=== PATIENT | male | born 1945 | race Caucasian/White ===

== ENCOUNTER 2021-05-15 08:35 | Emergency (ER) | payer MEDICARE, OTHER, SELFPAY ==
[2021-05-15 08:40] VITALS: BP 181/100; PULSE 125; RESP 14; TEMP 36.5; O2SAT 94; BMI 38.0
--- NOTE | 2021-05-15 08:45 | ED_ITS ---
Documented by User: TIESHA Roque 05/16/21 08:04 HPI - Male Genitourinary General: Chief complaint: Urogenital-Male Stated complaint: ABDOMINAL PAIN Time Seen by Provider: 05/15/21 08:36 Source: patient and EMS Mode of arrival: EMS Limitations: no limitations History of Present Illness: HPI Narrative: Patient is a 75-year-old male who presents to ED today with a complaint of left lower back pain that began around 4 PM yesterday evening. Patient states since that time he has noticed cloudy and bloody urine. He states he does have a history of kidney stones years and years ago . Patient states this morning he noticed his urine had BB looking things in it that he believes were probably stones. Upon arrival from EMS he tells me he is not having much pain. No N/V. Denies abdominal pain. No fevers. MD Complaint: other (L back pain, hematuria) Onset (ago): day(s) (yesterday evening) Exacerbating factors: urination Associated symptoms: Reports no associated symptoms and hematuria; Deny dysuria, nausea or vomiting Related Data: Sexually active: No Review of Systems Const: Denies: fever(s), chills, body aches, fatigue or malaise Eyes: Denies: change in vision ENMT: Denies: throat pain or odynophagia Card: Denies: chest pain, palpitations, irregular heart rhythm, edema, lightheadedness, syncope or pre-syncope Resp: Denies: dyspnea, productive cough, hemoptysis or chest congestion GI: Denies: abdominal pain, nausea, vomiting or diarrhea : Reports: difficulty urinating and hematuria; Denies: flank pain, dysuria, urinary urgency, genital pain or testicular pain Musc: Reports: back pain (subsided now); Denies: neck pain, extremity pain, extremity swelling, joint pain or joint swelling Skin/Breast: Denies: rash Neuro: Denies: headache(s), numbness in extremities, weakness in extremities, sensory changes or dizziness Physical Exam Const: COMMON NORMALS: no acute distress, patient oriented x3, no limitations and alert NUTRITIONAL APPEARANCE: obese ORIENTATION/CONSCIOUSNESS: Yes awake, Yes oriented to person, Yes oriented to place and Yes oriented to time HENMT: COMMON NORMALS: normocephalic and atraumatic HEAD & SCALP: normo cephalic and atraumatic Resp: COMMON NORMALS: normal respiratory effort EFFORT & INSPECTION: Yes able to speak in complete sentences AUSCULTATION: wheezes OTHER: appears mildly SOB but when asked he tells me he doesn't feel short of breath-some of this could be secondary to body habitus Cardio: COMMON NORMALS: regular rhythm RATE: tachycardic RHYTHM: regular rhythm GI: COMMON NORMALS: Normal to inspection, nondistended, normoactive bowel sounds present, Soft to palpation, non-tender and no masses PALPATION: Yes Soft to palpation Neuro: COMMON NORMALS: patient oriented x3 SENSORIUM/ORIENTATION: Yes alert, Yes oriented to person, Yes oriented to place and Yes oriented to time Skin: NARRATIVE SKIN EXAM: plaque like lesions to lower abdomen; candidal infection under L breast fold Course Consultations: Consultation #1: Dr. 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 He also had a bladder obstruction secondary to clots. Bladder scan showed 450mL but placement of a 22 Serbian catheter yielded no return. This was copiously irrigated and is currently draining well. He is uroseptic with tachycardia and a lactate over 4. He was started on IV fluids and empirical antibiotics. We have no beds currently so patient will be transferred to [facility] in [facility]. Dr. Breen also evaluated patient and spoke to accepting physician at [facility]. H/H stable. Lab Data: Labs: Lab Results 05/15/21 05/15/21 05/15/21 Range/Units 09:02 09:02 09:02 WBC 13.6 H (4.0-10.0) 10^3/ uL RBC 5.40 H (4.1-5.3) 10^6/u L Hgb 15.5 (11.7-16.6) g/dL Hct 48.6 (42.0-52.0) % MCV 90.0 (80-94) fl MCH 28.7 (28.0-34.0) pg MCHC 31.9 (30.0-36.0) g/dL RDW 14.1 (12.1-15.1) % Plt Count 277 (130-400) 10^3/c mm MPV 11.0 H (7.4-10.4) fL Neut % (Auto) 87.2 % Lymph % (Auto) 6.8 % Anderson % (Auto) 5.1 % Eos % (Auto) 0.1 % Baso % (Auto) 0.5 % Neut # (Auto) 11.87 H (1.8-7.7) 10^3/u L Lymph # (Auto) 0.9 (0.8-4.8) 10^3/u L Anderson # (Auto) 0.7 (0.2-0.9) 10^3/u L Eos # (Auto) 0.0 (0.0-0.8) 10^3/u L Baso # (Auto) 0.1 (0.0-0.1) 10^3/u L Nucleated RBC % (a uto) 0 % Nucleated RBCs # 0.0 /100WBC Sodium 135 L (136-145) mmol/L Potassium 4.9 (3.5-5.1) mmol/L Chloride 97 L (98-107) mmol/L Carbon Dioxide 23 (22-29) mmol/L Anion Gap 19.9 H (5-19) BUN 14 (8-23) mg/dL Creatinine 1.4 H (0.7-1.2) mg/dL GFR Calculation Not Reportable Glucose 231 H (65-115) mg/dL Calculated Osmolal ity 288 (285-295) mOsm/k g Lactic Acid 4.3 H* (0.5-2.2) mmol/L Lactic Acid (Sepsi s) (0.5-2.2) mmol/L Calcium 10.0 (8.5-10.5) mg/dL Total Bilirubin 0.6 (0.15-1.2) mg/dL AST 18 (0-40) U/L ALT 15 (0-41) U/L Alkaline Phosphata se 106 (40-130) IU/L Total Protein 7.3 (6.6-8.7) g/dL Albumin 4.3 (3.5-5.2) g/dL Globulin 3.0 (1.3-4.6) g/dL Urine Color (Yellow) Urine Appearance (CLEAR) Urine pH (5-7) Ur Specific Gravit y (1.005-1.030) Urine Protein (Negative) Urine Glucose (UA) (Normal) Urine Ketones (Negative) Urine Blood (Negative) Urine Nitrate (Negative) Urine Bilirubin (Negative) Urine Urobilinogen (Negative) mg/dL Ur Leukocyte Emily ase (Negative) Urine RBC (0-2) /hpf Urine WBC (0-5) /hpf Ur Squamous Epith Cells (0-5) /hpf Amorphous Sediment Urine Bacteria (NONE) /hpf SARS-CoV-2 Ag (Rap id) (Negative) Blood Type Rho(D) Type Antibody Screen 05/15/21 05/15/21 05/15/21 Range/Units 10:05 10:10 12:05 WBC (4.0-10.0) 10^3/ uL RBC (4.1-5.3) 10^6/u L Hgb (11.7-16.6) g/dL Hct (42.0-52.0) % MCV (80-94) fl MCH (28.0-34.0) pg MCHC (30.0-36.0) g/dL RDW (12.1-15.1) % Plt Count (130-400) 10^3/c mm MPV (7.4-10.4) fL Neut % (Auto) % Lymph % (Auto) % Anderson % (Auto) % Eos % (Auto) % Baso % (Auto) % Neut # (Auto) (1.8-7.7) 10^3/u L Lymph # (Auto) (0.8-4.8) 10^3/u L Anderson # (Auto) (0.2-0.9) 10^3/u L Eos # (Auto) (0.0-0.8) 10^3/u L Baso # (Auto) (0.0-0.1) 10^3/u L Nucleated RBC % (a uto) % Nucleated RBCs # /100WBC Sodium (136-145) mmol/L Potassium (3.5-5.1) mmol/L Chloride (98-107) mmol/L Carbon Dioxide (22-29) mmol/L Anion Gap (5-19) BUN (8-23) mg/dL Creatinine (0.7-1.2) mg/dL GFR Calculation Glucose (65-115) mg/dL Calculated Osmolal ity (285-295) mOsm/k g Lactic Acid (0.5-2.2) mmol/L Lactic Acid (Sepsi s) (0.5-2.2) mmol/L Calcium (8.5-10.5) mg/dL Total Bilirubin (0.15-1.2) mg/dL AST (0-40) U/L ALT (0-41) U/L Alkaline Phosphata se (40-130) IU/L Total Protein (6.6-8.7) g/dL Albumin (3.5-5.2) g/dL Globulin (1.3-4.6) g/dL Urine Color Red (Yellow) Urine Appearance Bloody A (CLEAR) Urine pH 6.5 (5-7) Ur Specific Gravit y 1.010 (1.005-1.030) Urine Protein 3+ H (Negative) Urine Glucose (UA) 4+ H (Normal) Urine Ketones 1+ H (Negative) Urine Blood 3+ H (Negative) Urine Nitrate Not tested A (Negative) Urine Bilirubin 1+ H (Negative) Urine Urobilinogen 1 H (Negative) mg/dL Ur Leukocyte Emily ase 1+ H (Negative) Urine RBC Too numerous to c nt H (0-2) /hpf Urine WBC 40-55 H (0-5) /hpf Ur Squamous Epith Cells 5-10 H (0-5) /hpf Amorphous Sediment Not Reportable Urine Bacteria 1+ H (NONE) /hpf SARS-CoV-2 Ag (Rap id) Negative (Negative) Blood Type O Negative Rho(D) Type Negative Antibody Screen Negative 05/15/21 05/15/21 Range/Units 12:12 14:23 WBC 12.9 H (4.0-10.0) 10^3/ uL RBC 4.96 (4.1-5.3) 10^6/u L Hgb 14.7 (11.7-16.6) g/dL Hct 44.1 (42.0-52.0) % MCV 88.9 (80-94) fl MCH 29.6 (28.0-34.0) pg MCHC 33.3 (30.0-36.0) g/dL RDW 14.2 (12.1-15.1) % Plt Count 311 (130-400) 10^3/c mm MPV 10.9 H (7.4-10.4) fL Neut % (Auto) 85.5 % Lymph % (Auto) 7.2 % Anderson % (Auto) 6.5 % Eos % (Auto) 0.1 % Baso % (Auto) 0.4 % Neut # (Auto) 11.01 H (1.8-7.7) 10^3/u L Lymph # (Auto) 0.9 (0.8-4.8) 10^3/u L Anderson # (Auto) 0.8 (0.2-0.9) 10^3/u L Eos # (Auto) 0.0 (0.0-0.8) 10^3/u L Baso # (Auto) 0.1 (0.0-0.1) 10^3/u L Nucleated RBC % (a uto) 0 % Nucleated RBCs # 0.0 /100WBC Sodium (136-145) mmol/L Potassium (3.5-5.1) mmol/L Chloride (98-107) mmol/L Carbon Dioxide (22-29) mmol/L Anion Gap (5-19) BUN (8-23) mg/dL Creatinine (0.7-1.2) mg/dL GFR Calculation Glucose (65-115) mg/dL Calculated Osmolal ity (285-295) mOsm/k g Lactic Acid (0.5-2.2) mmol/L Lactic Acid (Sepsi s) 2.6 H (0.5-2.2) mmol/L Calcium (8.5-10.5) mg/dL Total Bilirubin (0.15-1.2) mg/dL AST (0-40) U/L ALT (0-41) U/L Alkaline Phosphata se (40-130) IU/L Total Protein (6.6-8.7) g/dL Albumin (3.5-5.2) g/dL Globulin (1.3-4.6) g/dL Urine Color (Yellow) Urine Appearance (CLEAR) Urine pH (5-7) Ur Specific Gravit y (1.005-1.030) Urine Protein (Negative) Urine Glucose (UA) (Normal) Urine Ketones (Negative) Urine Blood (Negative) Urine Nitrate (Negative) Urine Bilirubin (Negative) Urine Urobilinogen (Negative) mg/dL Ur Leukocyte Emily ase (Negative) Urine RBC (0-2) /hpf Urine WBC (0-5) /hpf Ur Squamous Epith Cells (0-5) /hpf Amorphous Sediment Urine Bacteria (NONE) /hpf SARS-CoV-2 Ag (Rap id) (Negative) Blood Type Rho(D) Type Antibody Screen Imaging Data: CXR: Radiologist's impression: [address] [id number] ReportSigned Patient: Nadir Sarkar #: [id number]: 1945cct#:[id number]/Sex: 75 / MADM Date: 05/15/21Loc: ERRoom/Bed:Attending Dr: Ordering Provider/Ordering MD: Estefani Hauser Date of Service: 05/15/21 Procedure(s): XR chest 1V portable [id number] Accession Number(s): [id number] Report Number: [id number] PROCEDURE INFORMATION: Exam: XR Chest Exam date and time: 05/15/2021 9:43 AM Age: 75 years old Clinical indication: Shortness of breath; Other: Abdomen pain; Additional info: SOB, tachy TECHNIQUE: Imaging protocol: XR of the chest. Views: 1 view. COMPARISON: CT kidney stone [id number] 05/15/2021 9:19 AM FINDINGS: Lungs: Unremarkable. No consolidation. Pleural spaces: Unremarkable. No pleural effusion. No pneumothorax. Heart/Mediastinum: Unremarkable. No cardiomegaly. Bones/joints: Unremarkable. XR/XR chest 1V portable [id number] IMPRESSION: No acute findings. Dictated By:Pito Burnsed By:Tariq Burns Date/Time:05/15/21 1004DD/ 1003 CT Abd/Pel: Radiologist's impression: [facility] [address] [place] [address] CT Scan Report Signed Patient: Nadir Sarkar Unit #: [id number] : 1945 Age/Sex: 75 / M ADM Date: 05/15/21 Loc: ER Room/Bed: Attending Dr: Ordering Provider/Ordering MD: Estefani Hauser Date of Service: 05/15/21 Procedure(s): CT kidney stone [id number] Accession Number(s): [id number] Report Number: [id number] WS: [id number] CT ABDOMEN PELVIS TECHNIQUE: Noncontrast CT of the abdomen and pelvis with coronal and sagittal reformatted images. CLINICAL INFORMATION: L lower back pain, bloody urine COMPARISON: None. DLP: 1854.[address] scans at [facility] use at least one of these dose optimization techniques: automated exposure control; mA and/or kV adjustment per patient size (includes targeted exams where dose is matched to clinical indication); or iterative reconstruction. FINDINGS: Diffuse increased attenuation consistent with blood products in the renal pelvis with dilated left UPJ. Increased attenuation dependent blood products in the bladder. Left ureter is otherwise decompressed. Large left upper pole renal cyst measuring 6.2 x 6.8 cm with increased attenuation hematoma suspicious for hemorrhagic neoplasm. Also consider spontaneous urothelial hemorrhagic or hemorrhagic TCC. Inflammatory stranding and edema about the left kidney. No hydronephrosis in right kidney. Incidental right renal cyst. Right ureter is decompressed. Lung bases are well aerated. Fatty atrophy of the pancreas. Small esophageal hiatal hernia. Adrenal glands are normal. Normal caliber abdominal aorta. Sigmoid diverticulosis. No evidence of acute diverticulitis. Normal appendix in the right lower quadrant. CT/CT kidney stone [id number] IMPRESSION: 1. Hemorrhagic blood products within the renal pelvis with mild dilatation of the left UPJ. Dependent blood products and hematoma within the bladder. 2. Large left upper pole renal cyst with increased attenuation blood products and hematoma suspicious for cystic neoplasm. Also consider spontaneous urothelial hemorrhage or hemorrhagic TCC. Recommend urology consultation. 3. Inflammatory stranding and edema about the left kidney. 4. Incidental simple right renal cyst. 5. Sigmoid diverticulosis. No evidence of acute diverticulitis. 6. Small esophageal hiatal hernia. Notified TIESHA Roque at 05/15/2021 10:09 AM. Dictated By: Chuy Guzman MD Signed By: Chuy Guzman MD Signed Date/Time: 05/15/21 1010 DD/ 0943 Discharge Plan Discharge Patient Disposition: Xfer Short-Term Hosp Clinical Impression: Renal hemorrhage, left, Bladder outflow obstruction Sepsis Qualifiers: Sepsis acute organ dysfunction status: unspecified Condition: Stable Referrals: Laurent Whitaker MD [Primary Care Provider] - Coding Level of Care Code ED Mastic Floor Layer for Chg Fwd Exam Detailed Documented by User: Yazan Breen MD 05/17/21 20:38 HPI - Male Genitourinary General: Chief complaint: Urogenital-Male Stated complaint: ABDOMINAL PAIN Time Seen by Provider: 05/15/21 08:36 Course Vital Signs: Vital signs: Vital Signs Temperature 97.7 F 05/15/21 08:40 Pulse Rate 117 H 05/15/21 14:40 Respiratory Rate 19 H 05/15/21 14:40 Blood Pressure 147/78 05/15/21 11:00 Pulse Oximetry 94 05/15/21 14:40 MDM - Male MDM Narrative: Medical decision making narrative: Case discussed with TIESHA Roque. I reviewed labs and imaging. Concern for hematuria from renal lesion that may require intervention, no beds available here. Patient to be transferred. Yazan Breen MD Emergency Medicine Lab Data: Labs: Lab Results 05/15/21 05/15/21 05/15/21 Range/Units 09:02 09:02 09:02 WBC 13.6 H (4.0-10.0) 10^3/ uL RBC 5.40 H (4.1-5.3) 10^6/u L Hgb 15.5 (11.7-16.6) g/dL Hct 48.6 (42.0-52.0) % MCV 90.0 (80-94) fl MCH 28.7 (28.0-34.0) pg MCHC 31.9 (30.0-36.0) g/dL RDW 14.1 (12.1-15.1) % Plt Count 277 (130-400) 10^3/c mm MPV 11.0 H (7.4-10.4) fL Neut % (Auto) 87.2 % Lymph % (Auto) 6.8 % Anderson % (Auto) 5.1 % Eos % (Auto) 0.1 % Baso % (Auto) 0.5 % Neut # (Auto) 11.87 H (1.8-7.7) 10^3/u L Lymph # (Auto) 0.9 (0.8-4.8) 10^3/u L Anderson # (Auto) 0.7 (0.2-0.9) 10^3/u L Eos # (Auto) 0.0 (0.0-0.8) 10^3/u L Baso # (Auto) 0.1 (0.0-0.1) 10^3/u L Nucleated RBC % (a uto) 0 % Nucleated RBCs # 0.0 /100WBC Sodium 135 L (136-145) mmol/L Potassium 4.9 (3.5-5.1) mmol/L Chloride 97 L (98-107) mmol/L Carbon Dioxide 23 (22-29) mmol/L Anion Gap 19.9 H (5-19) BUN 14 (8-23) mg/dL Creatinine 1.4 H (0.7-1.2) mg/dL GFR Calculation Not Reportable Glucose 231 H (65-115) mg/dL Calculated Osmolal ity 288 (285-295) mOsm/k g Lactic Acid 4.3 H* (0.5-2.2) mmol/L Lactic Acid (Sepsi s) (0.5-2.2) mmol/L Calcium 10.0 (8.5-10.5) mg/dL Total Bilirubin 0.6 (0.15-1.2) mg/dL AST 18 (0-40) U/L ALT 15 (0-41) U/L Alkaline Phosphata se 106 (40-130) IU/L Total Protein 7.3 (6.6-8.7) g/dL Albumin 4.3 (3.5-5.2) g/dL Globulin 3.0 (1.3-4.6) g/dL Urine Color (Yellow) Urine Appearance (CLEAR) Urine pH (5-7) Ur Specific Gravit y (1.005-1.030) Urine Protein (Negative) Urine Glucose (UA) (Normal) Urine Ketones (Negative) Urine Blood (Negative) Urine Nitrate (Negative) Urine Bilirubin (Negative) Urine Urobilinogen (Negative) mg/dL Ur Leukocyte Emily ase (Negative) Urine RBC (0-2) /hpf Urine WBC (0-5) /hpf Ur Squamous Epith Cells (0-5) /hpf Amorphous Sediment Urine Bacteria (NONE) /hpf SARS-CoV-2 Ag (Rap id) (Negative) Blood Type Rho(D) Type Antibody Screen 05/15/21 05/15/21 05/15/21 Range/Units 10:05 10:10 12:05 WBC (4.0-10.0) 10^3/ uL RBC (4.1-5.3) 10^6/u L Hgb (11.7-16.6) g/dL Hct (42.0-52.0) % MCV (80-94) fl MCH (28.0-34.0) pg MCHC (30.0-36.0) g/dL RDW (12.1-15.1) % Plt Count (130-400) 10^3/c mm MPV (7.4-10.4) fL Neut % (Auto) % Lymph % (Auto) % Anderson % (Auto) % Eos % (Auto) % Baso % (Auto) % Neut # (Auto) (1.8-7.7) 10^3/u L Lymph # (Auto) (0.8-4.8) 10^3/u L Anderson # (Auto) (0.2-0.9) 10^3/u L Eos # (Auto) (0.0-0.8) 10^3/u L Baso # (Auto) (0.0-0.1) 10^3/u L Nucleated RBC % (a uto) % Nucleated RBCs # /100WBC Sodium (136-145) mmol/L Potassium (3.5-5.1) mmol/L Chloride (98-107) mmol/L Carbon Dioxide (22-29) mmol/L Anion Gap (5-19) BUN (8-23) mg/dL Creatinine (0.7-1.2) mg/dL GFR Calculation Glucose (65-115) mg/dL Calculated Osmolal ity (285-295) mOsm/k g Lactic Acid (0.5-2.2) mmol/L Lactic Acid (Sepsi s) (0.5-2.2) mmol/L Calcium (8.5-10.5) mg/dL Total Bilirubin (0.15-1.2) mg/dL AST (0-40) U/L ALT (0-41) U/L Alkaline Phosphata se (40-130) IU/L Total Protein (6.6-8.7) g/dL Albumin (3.5-5.2) g/dL Globulin (1.3-4.6) g/dL Urine Color Red (Yellow) Urine Appearance Bloody A (CLEAR) Urine pH 6.5 (5-7) Ur Specific Gravit y 1.010 (1.005-1.030) Urine Protein 3+ H (Negative) Urine Glucose (UA) 4+ H (Normal) Urine Ketones 1+ H (Negative) Urine Blood 3+ H (Negative) Urine Nitrate Not tested A (Negative) Urine Bilirubin 1+ H (Negative) Urine Urobilinogen 1 H (Negative) mg/dL Ur Leukocyte Emily ase 1+ H (Negative) Urine RBC Too numerous to c nt H (0-2) /hpf Urine WBC 40-55 H (0-5) /hpf Ur Squamous Epith Cells 5-10 H (0-5) /hpf Amorphous Sediment Not Reportable Urine Bacteria 1+ H (NONE) /hpf SARS-CoV-2 Ag (Rap id) Negative (Negative) Blood Type O Negative Rho(D) Type Negative Antibody Screen Negative 05/15/21 05/15/21 Range/Units 12:12 14:23 WBC 12.9 H (4.0-10.0) 10^3/ uL RBC 4.96 (4.1-5.3) 10^6/u L Hgb 14.7 (11.7-16.6) g/dL Hct 44.1 (42.0-52.0) % MCV 88.9 (80-94) fl MCH 29.6 (28.0-34.0) pg MCHC 33.3 (30.0-36.0) g/dL RDW 14.2 (12.1-15.1) % Plt Count 311 (130-400) 10^3/c mm MPV 10.9 H (7.4-10.4) fL Neut % (Auto) 85.5 % Lymph % (Auto) 7.2 % Anderson % (Auto) 6.5 % Eos % (Auto) 0.1 % Baso % (Auto) 0.4 % Neut # (Auto) 11.01 H (1.8-7.7) 10^3/u L Lymph # (Auto) 0.9 (0.8-4.8) 10^3/u L Anderson # (Auto) 0.8 (0.2-0.9) 10^3/u L Eos # (Auto) 0.0 (0.0-0.8) 10^3/u L Baso # (Auto) 0.1 (0.0-0.1) 10^3/u L Nucleated RBC % (a uto) 0 % Nucleated RBCs # 0.0 /100WBC Sodium (136-145) mmol/L Potassium (3.5-5.1) mmol/L Chloride (98-107) mmol/L Carbon Dioxide (22-29) mmol/L Anion Gap (5-19) BUN (8-23) mg/dL Creatinine (0.7-1.2) mg/dL GFR Calculation Glucose (65-115) mg/dL Calculated Osmolal ity (285-295) mOsm/k g Lactic Acid (0.5-2.2) mmol/L Lactic Acid (Sepsi s) 2.6 H (0.5-2.2) mmol/L Calcium (8.5-10.5) mg/dL Total Bilirubin (0.15-1.2) mg/dL AST (0-40) U/L ALT (0-41) U/L Alkaline Phosphata se (40-130) IU/L Total Protein (6.6-8.7) g/dL Albumin (3.5-5.2) g/dL Globulin (1.3-4.6) g/dL Urine Color (Yellow) Urine Appearance (CLEAR) Urine pH (5-7) Ur Specific Gravit y (1.005-1.030) Urine Protein (Negative) Urine Glucose (UA) (Normal) Urine Ketones (Negative) Urine Blood (Negative) Urine Nitrate (Negative) Urine Bilirubin (Negative) Urine Urobilinogen (Negative) mg/dL Ur Leukocyte Emily ase (Negative) Urine RBC (0-2) /hpf Urine WBC (0-5) /hpf Ur Squamous Epith Cells (0-5) /hpf Amorphous Sediment Urine Bacteria (NONE) /hpf SARS-CoV-2 Ag (Rap id) (Negative) Blood Type Rho(D) Type Antibody Screen Discharge Plan Discharge Patient Disposition: Xfer Short-Term Hosp Clinical Impression: Renal hemorrhage, left, Bladder outflow obstruction Sepsis Qualifiers: Sepsis acute organ dysfunction status: unspecified Condition: Stable Referrals: Laurent Whitaker MD [Primary Care Provider] - Coding Level of Care Code ED Mastic Floor Layer for Chg Fwd Exam Detailed
--- NOTE | 2021-05-15 08:51 | CT_ITS ---
WS: [id number] CT ABDOMEN PELVIS TECHNIQUE: Noncontrast CT of the abdomen and pelvis with coronal and sagittal reformatted images. CLINICAL INFORMATION: L lower back pain, bloody urine COMPARISON: None. DLP: 1854.[address] scans at [facility] use at least one of these dose optimization techniques: automated e xposure control; mA and/or kV adjustment per patient size (includes targeted exams where dose is matc hed to clinical indication); or iterative reconstruction. FINDINGS: Diffuse increased attenuation consistent with blood products in the renal pelvis with dilated left UP J. Increased attenuation dependent blood products in the bladder. Left ureter is otherwise decompress ed. Large left upper pole renal cyst measuring 6.2 x 6.8 cm with increased attenuation hematoma suspi cious for hemorrhagic neoplasm. Also consider spontaneous urothelial hemorrhagic or hemorrhagic TCC. Inflammatory stranding and edema about the left kidney. No hydronephrosis in right kidney. Incidental right renal cyst. Right ureter is decompressed. Lung bases are well aerated. Fatty atrophy of the pancreas. Small esophageal hiatal hernia. Adrenal g lands are normal. Normal caliber abdominal aorta. Sigmoid diverticulosis. No evidence of acute divert iculitis. Normal appendix in the right lower quadrant. CT/CT kidney stone [id number] IMPRESSION: 1. Hemorrhagic blood products within the renal pelvis with mild dilatation of the left UPJ. Dependent blood products and hematoma within the bladder. 2. Large left upper pole renal cyst with increased attenuation blood products and hematoma suspicious for cystic neoplasm. Also consider spontaneous urotheli al hemorrhage or hemorrhagic TCC. Recommend urology consultation. 3. Inflammatory stranding and edema about the left kidney. 4. Incidental simple right renal cyst. 5. Sigmoid diverticulosis. No evidence of acute diverticulitis. 6. Small esophageal hiatal hernia. Notified TIESHA Roque at 05/15/2021 10:09 AM.
--- NOTE | 2021-05-15 08:53 | ECG_ITS ---
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 Measurements Intervals [place] Rate: 128 P: 231 RI: 190 QRS: -76 QRSD: 100 T: 56 QT: 316 QTc: 462 Interpretive Statements SINUS TACHYCARDIA LEFT AXIS DEVIATION [QRS AXIS < -30] LOW QRS VOLTAGE [QRS DEFLECTION < 0.5/1.0 mV IN LIMB/CHEST LEADS] INCOMPLETE RIGHT BUNDLE BRANCH BLOCK [90+ ms QRS DURATION, TERMINAL R IN V1/V2, 40+ ms S IN I/aVL/V4/V5/V6] POSSIBLE ANTERIOR MYOCARDIAL INFARCTION , PROBABLY OLD [30 ms Q WAVE IN V3/V4, OR R < 0.2 mV IN V4] No previous ECG available for comparison Electronically Signed On 05-17-2021 10:42:26 CDT by Ronna Victoria M.D. [email or web address]
[2021-05-15 09:15] LABS: Basophils # 0.1 10^3/uL (0.0-0.1); Basophils % 0.5 %; Eosinophils % 0.1 %; Hematocrit 48.6 % (42.0-52.0); Hemoglobin 15.5 g/dL (11.7-16.6); Lymphocytes # 0.9 10^3/uL (0.8-4.8); Lymphocytes % 6.8 %; Mean Corpuscular HGB Conc 31.9 g/dL (30.0-36.0); Mean Corpuscular Hemoglobin 28.7 pg (28.0-34.0); Monocytes # 0.7 10^3/uL (0.2-0.9); Monocytes % 5.1 %; Neutrophils # 11.87 10^3/uL (1.8-7.7); Neutrophils % 87.2 %; Nucleated Red Blood Cells % 0 %; Platelet Count 277 10^3/cmm (130-400); Red Cell Distribution Width 14.1 % (12.1-15.1); White Blood Count 13.6 10^3/uL (4.0-10.0)
[2021-05-15 09:29] LABS: Alanine Aminotransferase 15 U/L (0-41); Albumin Level 4.3 g/dL (3.5-5.2); Alkaline Phosphatase 106 IU/L (40-130); Blood Urea Nitrogen 14 mg/dL (8-23); Carbon Dioxide 23 mmol/L (22-29); Chloride 97 mmol/L (98-107); Glucose 231 mg/dL (65-115); Osmolality Calculated 288 mOsm/kg (285-295); Sodium 135 mmol/L (136-145); Total Bilirubin 0.6 mg/dL (0.15-1.2); Total Protein 7.3 g/dL (6.6-8.7)
[2021-05-15 09:40] LABS: Anion Gap 19.9 (5-19); Aspartate Amino Transferase 18 U/L (0-40); Potassium 4.9 mmol/L (3.5-5.1)
--- NOTE | 2021-05-15 09:43 | XRR_ITS ---
PROCEDURE INFORMATION: Exam: XR Chest Exam date and time: 05/15/2021 9:43 AM Age: 75 years old Clinical indication: Shortness of breath; Other: Abdomen pain; Additional info: SOB, tachy TECHNIQUE: Imaging protocol: XR of the chest. Views: 1 view. COMPARISON: CT kidney stone [id number] 05/15/2021 9:19 AM FINDINGS: Lungs: Unremarkable. No consolidation. Pleural spaces: Unremarkable. No pleural effusion. No pneumothorax. Heart/Mediastinum: Unremarkable. No cardiomegaly. Bones/joints: Unremarkable. XR/XR chest 1V portable [id number] IMPRESSION: No acute findings.
[2021-05-15 09:45] LABS: Lactic Sepsis W/Reflex 4.3 mmol/L (0.5-2.2)
[2021-05-15 10:05] VITALS: BP 137/93; PULSE 118; RESP 24; O2SAT 99
[2021-05-15] MEDS: cefTRIAXone 1,000 MG in sodium chloride 0.9% (plus) 50 ML 100 MG IV (10:18)
[2021-05-15] MEDS: sodium chloride 0.9% 1,000 ML 999 ML IV (10:19)
[2021-05-15 10:53] LABS: Reflex Lactate Order REFLEX LACTIC ORDERD
[2021-05-15 11:00] VITALS: BP 147/78; PULSE 117; RESP 16; O2SAT 95
[2021-05-15 11:08] LABS: SARS Covid-2 Antigen Negative (Negative)
[2021-05-15 12:28] VITALS: PULSE 111; RESP 26; O2SAT 94
[2021-05-15 12:57] LABS: Lactic Acid level (Lactate) 2.6 mmol/L (0.5-2.2)
[2021-05-15 13:28] LABS: Add Urine Microscopic? YES; Bilirubin Urine 1+ (Negative); Blood Urine 3+ (Negative); Glucose Urine UA 4+ (Normal); Ketones Urine 1+ (Negative); Leukocyte Esterase Urine 1+ (Negative); Nitrate Urine Not Tested (Negative); Protein Urine 3+ (Negative); Urine Appearance Bloody (CLEAR); Urine Color Red (Yellow); Urobilinogen Urine 1 mg/dL (Negative); pH Urine 6.5 (5-7)
[2021-05-15 13:30] LABS: RBC Urine TOO NUMEROUS TO CNT /hpf (0-2)
[2021-05-15 13:31] LABS: Add Urine Culture? Yes; Bacteria Urine 1+ /hpf; WBC Urine 40-55 /hpf (0-5)
[2021-05-15 14:39] LABS: Basophils # 0.1 10^3/uL (0.0-0.1); Basophils % 0.4 %; Eosinophils % 0.1 %; Hematocrit 44.1 % (42.0-52.0); Hemoglobin 14.7 g/dL (11.7-16.6); Lymphocytes # 0.9 10^3/uL (0.8-4.8); Lymphocytes % 7.2 %; Mean Corpuscular HGB Conc 33.3 g/dL (30.0-36.0); Mean Corpuscular Hemoglobin 29.6 pg (28.0-34.0); Mean Corpuscular Volume 88.9 fl (80-94); Mean Platelet Volume 10.9 fL (7.4-10.4); Monocytes # 0.8 10^3/uL (0.2-0.9); Monocytes % 6.5 %; Neutrophils # 11.01 10^3/uL (1.8-7.7); Neutrophils % 85.5 %; Nucleated Red Blood Cells % 0 %; Platelet Count 311 10^3/cmm (130-400); Red Blood Count 4.96 10^6/uL (4.1-5.3); Red Cell Distribution Width 14.2 % (12.1-15.1); White Blood Count 12.9 10^3/uL (4.0-10.0)
[2021-05-15 14:40] VITALS: PULSE 117; RESP 19; O2SAT 94
[2021-05-15] MEDS: sodium chloride 0.9% 1,000 ML 125 ML IV (15:18)
[2021-05-15] MEDS: LORazepam 2 mg/mL INJ 1 mL 1 MG IVP (16:10)
== END 2021-05-15 16:55 | disposition short-term general hospital (02) ==
PROVIDERS: Emergency Provider Physician Assistant; PCP Family Medicine
DX: N28.89 Other specified disorders of kidney and ureter (principal); N32.0 Bladder-neck obstruction; A41.9 Sepsis, unspecified organism; Z20.822 Contact with and (suspected) exposure to COVID-19
CPT/HCPCS: 36415; 51702; 71045; 74176; 80053; 81001; 83605; 85025; 86850; 86900; 87040; 87086; 87205; 87426; 93005; 96365; 96375; 99285; J0696; J2060; J7030

== ENCOUNTER 2021-07-06 17:42 | Outpatient (CLI) | payer MEDICARE, OTHER, SELFPAY ==
[2021-07-06 18:01] LABS: Basophils % 0.4 %; Eosinophils # 0.2 10^3/uL (0.0-0.8); Eosinophils % 3.2 %; Hematocrit 35.9 % (42.0-52.0); Hemoglobin 11.5 g/dL (11.7-16.6); Lymphocytes # 1.5 10^3/uL (0.8-4.8); Lymphocytes % 31.3 %; Mean Corpuscular Hemoglobin 28.3 pg (28.0-34.0); Mean Corpuscular Volume 88.2 fl (80-94); Mean Platelet Volume 10.4 fL (7.4-10.4); Monocytes # 0.5 10^3/uL (0.2-0.9); Monocytes % 10.7 %; Neutrophils # 2.58 10^3/uL (1.8-7.7); Neutrophils % 54.2 %; Nucleated Red Blood Cells % 0 %; Platelet Count 261 10^3/cmm (130-400); Red Blood Count 4.07 10^6/uL (4.1-5.3); Red Cell Distribution Width 14.2 % (12.1-15.1); White Blood Count 4.8 10^3/uL (4.0-10.0)
[2021-07-06 18:11] LABS: Bilirubin Urine 1+ (Negative); Blood Urine 2+ (Negative); Glucose Urine UA Norm (Normal); Ketones Urine Negative (Negative); Leukocyte Esterase Urine Negative (Negative); Nitrate Urine Negative (Negative); Protein Urine Neg (Negative); Urine Appearance SL Hazy (CLEAR); Urine Color Yellow (Yellow); Urobilinogen Urine 1 mg/dL (Negative); pH Urine 5 (5-7)
[2021-07-06 18:12] LABS: Add Urine Microscopic? YES; RBC Urine 0-4 /hpf (0-2)
[2021-07-06 18:13] LABS: Bacteria Urine 1+ /hpf
[2021-07-06 18:15] LABS: Add Urine Culture? Yes; Mucus Urine 1+ /hpf; Renal Epithelial Cells Urine 0-4 /hpf; Squamous Epithelial Cell Urine 15-25 /hpf (0-5)
[2021-07-06 18:20] LABS: Blood Urea Nitrogen 18 mg/dL (8-23); Calcium 8.5 mg/dL (8.5-10.5); Carbon Dioxide 25 mmol/L (22-29); Chloride 105 mmol/L (98-107); Glucose 90 mg/dL (65-115); Osmolality Calculated 289 mOsm/kg (285-295); Sodium 139 mmol/L (136-145)
[2021-07-06 18:30] LABS: Anion Gap 13.3 (5-19); Potassium 4.3 mmol/L (3.5-5.1)
== END 2021-07-06 17:43 | disposition home or self-care (01) ==
LOC: LAB 17:47
PROVIDERS: PCP Family Medicine; Visit Provider Nurse Practitioner Family
DX: R41.82 Altered mental status, unspecified (principal)
CPT/HCPCS: 80048; 81001; 85025; 87086

== ENCOUNTER 2021-07-30 16:21 | Inpatient (IN) | payer MEDICARE, OTHER, SELFPAY ==
[2021-07-30] VITALS (71 sets, daily range): BP systolic 87–143; BP diastolic 53–121; PULSE 49–116; RESP 8–24; TEMP 36.6; O2SAT 80–98; BMI 35.9
--- NOTE | 2021-07-30 16:34 | ECG_ITS ---
[facility] Test Date: 2021-07-30 Pat Name: Nadir Sarkar Department: Room: Gender: Male Injection Molding Operator: : 1945 Requested By: Pancho Bellamy Order Number: [id number] Dalia MD: Julio Cesar Sweeney M.D. Measurements Intervals [place] Rate: 102 P: MD: QRS: -71 QRSD: 90 T: 75 QT: 366 QTc: 477 Interpretive Statements SUPRAVENTRICULAR TACHYCARDIA LEFT AXIS DEVIATION [QRS AXIS < -30] LOW QRS VOLTAGE [QRS DEFLECTION < 0.5/1.0 mV IN LIMB/CHEST LEADS] PATTERN CONSISTENT WITH PULMONARY DISEASE MODERATE T-WAVE ABNORMALITY, CONSIDER ANTERIOR ISCHEMIA [-0.1+ mV T-WAVE IN V3/V4] Compared to ECG 05/15/2021 09:04:34 T-wave abnormality now present Possible ischemia now present Sinus tachycardia no longer present Incomplete right bundle-branch block no longer present Myocardial infarct finding no longer present Electronically Signed On 07-30-2021 20:06:43 BAKED AND GRAPHITE INSPECTOR by Julio Cesar Sweeney M.D. [email or web address]
--- NOTE | 2021-07-30 16:34 | XRR_ITS ---
PROCEDURE INFORMATION: Exam: XR Chest Exam date and time: 07/30/2021 4:34 PM Age: 75 years old Clinical indication: Other: AMS TECHNIQUE: Imaging protocol: XR of the chest. Views: 1 view. COMPARISON: CR XR chest 1V portable [id number] 05/15/2021 9:51 AM FINDINGS: Lungs: Hyperexpanded lungs. A few calcified granulomas noted in both lungs. No consolidation. Pleural spaces: Unremarkable. No pleural effusion. No pneumothorax. Heart/Mediastinum: Unremarkable. No cardiomegaly. Bones/joints: Visualized osseous structures are intact. XR/XR chest 1V portable [id number] IMPRESSION: No acute findings. Radiation Dose CTDIVOL = (mGy): DLP = (mGy-cm)
--- NOTE | 2021-07-30 16:34 | CTR_ITS ---
PROCEDURE INFORMATION: Exam: CT Head Without Contrast Exam date and time: 07/30/2021 4:34 PM Age: 75 years old Clinical indication: Altered mental status/memory loss; Additional info: AMS TECHNIQUE: Imaging protocol: Computed tomography of the head without contrast. Radiation optimization: All CT scans at this facility use at least one of these dose optimization techniques: automated exposure control; mA and/or kV adjustment per patient size (includes targeted exams where dose is matched to clinical indication); or iterative reconstruction. COMPARISON: No relevant prior studies available. RADIATION DOSE METRICS: Total DLP (mGy-cm): 909.88 FINDINGS: Brain: No hemorrhage. Moderate diffuse cerebral atrophy and sequela of chronic small vessel ischemic disease. No mass effect. Cerebral ventricles: No ventriculomegaly. Paranasal sinuses: Visualized sinuses are unremarkable. No fluid levels. Mastoid air cells: Visualized mastoid air cells are well aerated. Bones/joints: Unremarkable. No acute fracture. Soft tissues: Unremarkable. CT/CT head wo con* [id number] IMPRESSION: 1. No acute intracranial abnormality. 2. Moderate diffuse cerebral atrophy and sequela of chronic small vessel ischemic disease. Radiation Dose CTDIVOL = (mGy): DLP = 909.88 (mGy-cm)
--- NOTE | 2021-07-30 16:58 | W.ED.GENADLT ---
HPI - General Adult General: Chief complaint: Altered Mental Status Stated complaint: AMS DECREASED Time Seen by Provider: 07/30/21 16:22 History of Present Illness: HPI narrative: [75]yo patient w/ hx of nephrectomy 1 week prior for cancer, full code BIBA for altered mental status from [facility]. Per EMS, patient has been acting acting increasingly confused the last few days. Yesterday, patient was seen combative with staff. Today, patient has become somnolent and not responding to any questions. residential staff denies any fall, cough, fever/chills, abdominal pain, diarrhea, occultly breathing. Onset: Unknown Duration: ongoing, unclear duration Location: [facility] Severity: severe Review of Systems Narrative: REVIEW OF SYSTEMS unable to obtain due to current cognitive status PFSH ED PFSH: Surgical History (Updated 07/30/21 @ 20:03 by Hansa Guillaume MD) History of nephrectomy Physical Exam Narrative: EXAM NARRATIVE: Head: Atraumatic Eyes: PERRL, conjunctiva without injection ENT: Mucous membrane moist NECK: Supple without lymphadenopathy LUNGS: LCTAB CV: RRR ABDOMEN: Soft, nontender EXTREMITY: Normal ROM SKIN: No rash or erythema, no signs of track stratton, no visible patches, no noticeable celluitis NEURO: Somnolent but arousable, moving all extremities, GCS of 12 PSYCH: Somnolent unable to fully assess at this time Procedures Central Line Placement Left IJ: Time Out Performed: Yes Patient Placed on Monitor/Pulse Ox: Yes MD Prep: mask, gown and gloves Central Line Prep: Povidone-Iodine 1% Local Anesthetic: lidocaine 1% Amount of anesthesia used (mL): 5 Ultrasound Used for Placement: Yes Central Line Lumen Inserted: double Post Procedure: sutured in place, good blood return, all ports aspirated, flushed, capped and sterile dressing applied Post Procedure X-Ray: tip of catheter in good position Patient Tolerated Procedure: well Complications: none Additional Comments: dual lumen dialysis cathether placed in the L IJ Course Vital Signs: Vital signs: Vital Signs Pulse Rate 82 07/30/21 21:00 Respiratory Rate 20 H 07/30/21 21:00 Blood Pressure 101/73 07/30/21 21:00 Pulse Oximetry 95 07/30/21 21:00 MDM - General Adult MDM Narrative: Medical decision making narrative: [75]yo patient w/ hx of nephrectomy BIBA for AMS, unclear last seen normal. Somnolent not responding to questions. Airway maintained. No signs of trauma including bruises, hematoma, lacerations, or basilar skull fracture. DDx broad including intracranial injuries, metabolic phenomenon, substance intoxication/withdrawal, and sepsis. Toxidrome Findings: Negative. No rigidity or clonus of LE ankle/knee reflexes, no diaphoresis, pupils mid-ranged equal and reactive to light, no signs of track stratton/body patches, normal bowel sounds, and bladder non-palpable/ non-distended. EKG: EKG: Normal Sinus Rhythm. No overt ischemic findings and no prolongation of QTc or QRS intervals. No signs of hyperkalemia (peaked T waves, QRS widening, and OH prolongation) Workup: CBC, CMP, acetaminophen level, salicylate level, VBG, CK, UA, ECG, UA/UDS, CT brain, XR Chest Intervention: IVF Patient is found in acute renal failure with creatinine of 3.9 new compared to baseline of 1. Patient BUN of 69 which may explain patient's confusion. Attempted to reach telenephrology x 4 were unsuccessful. Patient admitted to the hospital for IVF and rehydration. Case was discussed with Dr. Guillaume with recommendation for dialysis line in case there is a need for dialysis in the AM. Disposition: Admission Lab Data: Labs: Lab Results 07/30/21 07/30/21 07/30/21 18:00 18:00 18:00 WBC 12.8 10^3/uL H 10 ^3/uL (4.0-10.0) RBC 5.27 10^6/uL 10^6 /uL (4.1-5.3) Hgb 15.0 g/dL g/dL (11.7-16.6) Hct 46.1 % % (42.0-52.0) MCV 87.5 fl fl (80-94) MCH 28.5 pg pg (28.0-34.0) MCHC 32.5 g/dL g/dL (30.0-36.0) RDW 16.2 % H % (12.1-15.1) Plt Count 270 10^3/cmm 10^3 /cmm (130-400) MPV 11.9 fL H fL (7.4-10.4) Neut % (Auto) 80.4 % % Lymph % (Auto) 11.3 % % [place] % (Auto) 6.8 % % Eos % (Auto) 0.4 % % Baso % (Auto) 0.6 % % Neut # (Auto) 10.28 10^3/uL H 1 0^3/uL (1.8-7.7) Lymph # (Auto) 1.4 10^3/uL 10^3/ uL (0.8-4.8) [place] # (Auto) 0.9 10^3/uL 10^3/ uL (0.2-0.9) Eos # (Auto) 0.1 10^3/uL 10^3/ uL (0.0-0.8) Baso # (Auto) 0.1 10^3/uL 10^3/ uL (0.0-0.1) Nucleated RBC % (a uto) 0 % % Nucleated RBCs # 0.0 /100WBC /100W BC PT INR APTT Sodium 142 mmol/L mmol/L (136-145) Potassium 5.3 mmol/L H mmol /L (3.5-5.1) Chloride 101 mmol/L mmol/L (98-107) Carbon Dioxide 24 mmol/L mmol/L (22-29) Anion Gap 22.3 H (5-19) BUN 69 mg/dL H mg/dL (8-23) Creatinine 3.7 mg/dL H mg/dL (0.7-1.2) GFR Calculation Not Reportable Glucose 178 mg/dL H mg/dL (65-115) POC Glucose Calculated Osmolal ity 319 mOsm/kg H mOs m/kg (285-295) Calcium 9.8 mg/dL mg/dL (8.5-10.5) Total Bilirubin 0.6 mg/dL mg/dL (0.15-1.2) AST 11 U/L U/L (0-40) ALT 8 U/L U/L (0-41) Alkaline Phosphata se 125 IU/L IU/L (40-130) Ammonia 13 umol/L L umol/ L (16-60) Creatine Kinase 24 U/L L U/L (39-308) Troponin T Baselin e Total Protein 7.5 g/dL g/dL (6.6-8.7) Albumin 3.6 g/dL g/dL (3.5-5.2) Globulin 3.9 g/dL g/dL (1.3-4.6) Lipase 11 U/L L U/L (13-60) Procalcitonin Salicylates < 0.3 mg/dL L mg/ dL (3-10) Acetaminophen < 5.0 ug/mL L ug/ mL (10-30) 07/30/21 07/30/21 07/30/21 18:00 18:00 18:00 WBC RBC Hgb Hct MCV MCH MCHC RDW Plt Count MPV Neut % (Auto) Lymph % (Auto) [place] % (Auto) Eos % (Auto) Baso % (Auto) Neut # (Auto) Lymph # (Auto) [place] # (Auto) Eos # (Auto) Baso # (Auto) Nucleated RBC % (a uto) Nucleated RBCs # PT 15.20 SECONDS H S ECONDS (12.1-14.9) INR 1.17 (0.8-1.2) APTT 37.7 SECONDS H SE CONDS (23.9-36.7) Sodium Potassium Chloride Carbon Dioxide Anion Gap BUN Creatinine GFR Calculation Glucose POC Glucose Calculated Osmolal ity Calcium Total Bilirubin AST ALT Alkaline Phosphata se [place] Creatine Kinase Troponin T Baselin e 39 ng/L H ng/L (0-15) Total Protein Albumin Globulin Lipase Procalcitonin 0.29 ng/mL ng/mL (0-0.5) Salicylates Acetaminophen 07/30/21 18:08 WBC RBC Hgb Hct MCV MCH MCHC RDW Plt Count MPV Neut % (Auto) Lymph % (Auto) [place] % (Auto) Eos % (Auto) Baso % (Auto) Neut # (Auto) Lymph # (Auto) [place] # (Auto) Eos # (Auto) Baso # (Auto) Nucleated RBC % (a uto) Nucleated RBCs # PT INR APTT Sodium Potassium Chloride Carbon Dioxide Anion Gap BUN Creatinine GFR Calculation Glucose POC Glucose 156 mg/dL H mg/dL (70-110) Calculated Osmolal ity Calcium Total Bilirubin AST ALT Alkaline Phosphata se [place] Creatine Kinase Troponin T Baselin e Total Protein Albumin Globulin Lipase Procalcitonin Salicylates Acetaminophen Imaging Data^: Other Imaging: Radiologist's impression: [facility] [address] [id number] Scan ReportSigned Patient: Nadir Sarkart #: [id number]: 1945cct#:[id number]/Sex: 75 / MADM Date: 07/30/21Loc: ERRoom/Bed:Attending Dr: Ordering Provider/Ordering MD: Pancho Bellamy MD Date of Service: 07/30/21 Procedure(s): CT head wo con* [id number] Accession Number(s): [id number] Report Number: [id number] PROCEDURE INFORMATION: Exam: CT Head Without Contrast Exam date and time: 07/30/2021 4:34 PM Age: 75 years old Clinical indication: Altered mental status/memory loss; Additional info: AMS TECHNIQUE: Imaging protocol: Computed tomography of the head without contrast. Radiation optimization: All CT scans at this facility use at least one of these dose optimization techniques: automated exposure control; mA and/or kV adjustment per patient size (includes targeted exams where dose is matched to clinical indication); or iterative reconstruction. COMPARISON: No relevant prior studies available. RADIATION DOSE METRICS: Total DLP (mGy-cm): 909.88 FINDINGS: Brain: No hemorrhage. Moderate diffuse cerebral atrophy and sequela of chronic small vessel ischemic disease. No mass effect. Cerebral ventricles: No ventriculomegaly. Paranasal sinuses: Visualized sinuses are unremarkable. No fluid levels. Mastoid air cells: Visualized mastoid air cells are well aerated. Bones/joints: Unremarkable. No acute fracture. Soft tissues: Unremarkable. CT/CT head wo con* [id number] IMPRESSION: 1. No acute intracranial abnormality. 2. Moderate diffuse cerebral atrophy and sequela of chronic small vessel ischemic disease. Radiation Dose CTDIVOL = (mGy): DLP = 909.88 (mGy-cm) Dictated By:Misael Casas DOSigned By:Misael Casas DOSigned Date/Time:07/30/21 1744DD/ [address] [id number] ReportSigned Patient: Nadir Sarkar #: [id number]: 1945cct#:[id number]/Sex: 75 / MADM Date: 07/30/21Loc: ERRoom/Bed:Attending Dr: Ordering Provider/Ordering MD: Pancho Bellamy MD Date of Service: 07/30/21 Procedure(s): XR chest 1V portable [id number] Accession Number(s): [id number] Report Number: [id number] PROCEDURE INFORMATION: Exam: XR Chest Exam date and time: 07/30/2021 4:34 PM Age: 75 years old Clinical indication: Other: AMS TECHNIQUE: Imaging protocol: XR of the chest. Views: 1 view. COMPARISON: CR XR chest 1V portable [id number] 05/15/2021 9:51 AM FINDINGS: Lungs: Hyperexpanded lungs. A few calcified granulomas noted in both lungs. No consolidation. Pleural spaces: Unremarkable. No pleural effusion. No pneumothorax. Heart/Mediastinum: Unremarkable. No cardiomegaly. Bones/joints: Visualized osseous structures are intact. XR/XR chest 1V portable [id number] IMPRESSION: No acute findings. Radiation Dose CTDIVOL = (mGy): DLP = (mGy-cm) Dictated By:Misael Casas DOSigned By:Misael Casas DOSigned Date/Time:07/30/21 1729DD/ 1634 Discharge Plan Discharge Patient Disposition: Admitted As Inpatient Admit Provider: Hansa Guillaume Clinical Impression: Acute kidney injury, Altered mental status, Acute uremia Condition: Stable Coding Level of Care Code ED Hollow Ware Maker for Rosemarie Monreal
--- NOTE | 2021-07-30 17:40 | PC.PHAR ---
PT IS FROM [facility] NURSE FROM [facility] STATES THE PT TOOK HIS AM MEDS-PT NOT STARTED THE LANTUS 15 UNITS HS DOSE NURSE FROM [facility] STATES THE PT HAD BEEN DOING 20 UNITS HS STATES THE PT WAS SUPPOSE TO START THE 15 UNITS HS TONIGHT-NOTES ARE MADE IN THE PHARMACY COMMENTS
[2021-07-30] MEDS: sodium chloride 0.9% 500 ML 999 ML IV (18:00)
[2021-07-30 18:10] LABS: Basophils # 0.1 10^3/uL (0.0-0.1); Basophils % 0.6 %; Eosinophils # 0.1 10^3/uL (0.0-0.8); Eosinophils % 0.4 %; Hematocrit 46.1 % (42.0-52.0); Lymphocytes # 1.4 10^3/uL (0.8-4.8); Lymphocytes % 11.3 %; Mean Corpuscular HGB Conc 32.5 g/dL (30.0-36.0); Mean Corpuscular Hemoglobin 28.5 pg (28.0-34.0); Mean Corpuscular Volume 87.5 fl (80-94); Mean Platelet Volume 11.9 fL (7.4-10.4); Monocytes # 0.9 10^3/uL (0.2-0.9); Monocytes % 6.8 %; Neutrophils # 10.28 10^3/uL (1.8-7.7); Neutrophils % 80.4 %; Nucleated Red Blood Cells % 0 %; Platelet Count 270 10^3/cmm (130-400); Red Blood Count 5.27 10^6/uL (4.1-5.3); Red Cell Distribution Width 16.2 % (12.1-15.1); White Blood Count 12.8 10^3/uL (4.0-10.0)
[2021-07-30 18:22] LABS: INR 1.17 (0.8-1.2)
[2021-07-30 18:23] LABS: Partial Thromboplastin Time 37.7 SECONDS (23.9-36.7)
[2021-07-30 18:23] LABS: Glucose Point of Care 156 mg/dL (70-110)
[2021-07-30 18:36] LABS: Alanine Aminotransferase 8 U/L (0-41); Albumin Level 3.6 g/dL (3.5-5.2); Alkaline Phosphatase 125 IU/L (40-130); Blood Urea Nitrogen 69 mg/dL (8-23); Calcium 9.8 mg/dL (8.5-10.5); Carbon Dioxide 24 mmol/L (22-29); Chloride 101 mmol/L (98-107); Creatine Phosphokinase 24 U/L (39-308); Globulin 3.9 g/dL (1.3-4.6); Glucose 178 mg/dL (65-115); Lipase 11 U/L (13-60); Osmolality Calculated 319 mOsm/kg (285-295); Sodium 142 mmol/L (136-145); Total Bilirubin 0.6 mg/dL (0.15-1.2); Total Protein 7.5 g/dL (6.6-8.7)
[2021-07-30 18:37] LABS: Troponin(5th) Baseline 39 ng/L (0-15)
[2021-07-30 18:39] LABS: Acetaminophen < 5.0 ug/mL (10-30); Ammonia 13 umol/L (16-60); Anion Gap 22.3 (5-19); Aspartate Amino Transferase 11 U/L (0-40); Potassium 5.3 mmol/L (3.5-5.1); Salicylate < 0.3 mg/dL (3-10)
--- NOTE | 2021-07-30 20:01 | CTR_ITS ---
PROCEDURE INFORMATION: Exam: CT Abdomen And Pelvis Without Contrast Exam date and time: 07/30/2021 8:01 PM Age: 75 years old Clinical indication: Other: [place]; Prior surgery; Surgery date: <1 month; Surgery type: Best images possible. PT does not follow commands TECHNIQUE: Imaging protocol: Computed tomography of the abdomen and pelvis without contrast. Radiation optimization: All CT scans at this facility use at least one of these dose optimization techniques: automated exposure control; mA and/or kV adjustment per patient size (includes targeted exams where dose is matched to clinical indication); or iterative reconstruction. COMPARISON: CT kidney stone [id number] 05/15/2021 9:19 AM RADIATION DOSE METRICS: Total DLP (mGy-cm): 2105.26 FINDINGS: Liver: Normal. No mass. Gallbladder and bile ducts: Normal. No calcified stones. No ductal dilation. Pancreas: Fatty atrophy of the pancreas. No ductal dilation. Spleen: Punctate calcified granulomas in the spleen. No splenomegaly. Adrenal glands: Normal. No mass. Kidneys and ureters: Left nephrectomy. Scattered cysts in the right kidney measuring up to 2.5 cm in size. No hydronephrosis. Stomach and bowel: Colonic diverticulosis without findings of acute diverticulitis. No obstruction. No mucosal thickening. Appendix: No evidence of appendicitis. Intraperitoneal space: Unremarkable. No free air. No significant fluid collection. Vasculature: No abdominal aortic aneurysm. Lymph nodes: Unremarkable. No enlarged lymph nodes. Urinary bladder: Unremarkable as visualized. Reproductive: Unremarkable as visualized. Bones/joints: Generalized osseous demineralization. No acute fracture. Soft tissues: Subcutaneous air along the left anterior abdominal wall with additional fat stranding and trace fluid along the left lower abdominal wall. Trace air also noted in left inguinal canal. CT/CT abdomen pelvis wo con [id number] IMPRESSION: 1. No acute intra-abdominal findings. 2. Subcutaneous air along the left anterior abdominal wall with fat stranding and trace fluid as well as trace air in the left inguinal canal likely relating to recent surgical procedure. COMMENTS: Consistent with the [employer]'s Incidental Findings Committee white paper (J Am Ralph Radiol 2018): Any incidental renal lesion less than 1 cm or classified as too small to characterize, or any incidental cystic renal lesion characterized as simple-appearing, is likely benign. No follow-up imaging is recommended for these lesions per consensus recommendations based on imaging criteria. Radiation Dose CTDIVOL = (mGy): DLP = 2105.26 (mGy-cm)
--- NOTE | 2021-07-30 20:03 | P.HP_ITS ---
Providers/Chief Complaint Admitting Physician: Hansa Guillaume MD Primary Care Provider: Laurent Whitaker MD Chief Complaint: AMS DECREASED History of Present Illness Nadir Sarkar is a 75 year old male sent from [facility] for change in his behavior, combative and aggressive with the staff. Reportedly patient had nephrectomy a week ago at [place]. . he has been fluctuating between combative and aggressive state to somnolent behavior. As per the nursing staff no recent fever, falls, or recent diarrhea. In the ER he was diagnosed with CARLITO, mild pyuria noted on urinalysis, soft blood pressure, he is afebrile with leukocytosis, no signs of stroke, abdomen pelvis CT scan unremarkable other than postsurgical changes, chest x-ray did show appropriate placement of dialysis catheter which was placed by Dr. Bellamy in the ER. CT head unremarkable. Stat nephro consult placed Patient is oriented to himself able to tell me his name and date of , not able to provide much detail, I did review records from the care home, patient is full code, I was not able to get in touch with the nursing staff at [facility] when I called at 12:43 AM. Review of Systems General: Reports: ROS unobtainable due to medical condition (Delirium, dementia, CARLITO, uremia) Medications/Allergies Home Medications Medication Instructions Recorded Confirmed Last Taken Type loratadine 10 mg PO DAILY@08 05/15/21 07/30/21 07/30/21 History metformin 1,000 mg PO BID@,05/15/21 07/30/21 07/30/21 07:30 History Two Ned 90 ml PO TID 07/30/21 07/30/21 Unknown History albuterol sulfate 2 puff INHALATION Q6H PRN 07/30/21 07/30/21 Unknown History alum-mag hydroxide-simeth [Mylanta 30 ml PO Q4H PRN 07/30/21 07/30/21 Unknown History Maximum Strength] aspirin [Aspir-81] 81 mg PO DAILY@08 07/30/21 07/30/21 07/30/21 History atorvastatin 20 mg PO DAILY@20 07/30/21 07/30/21 07/29/21 History bisacodyl 10 mg OK DAILY PRN 07/30/21 07/30/21 Unknown History famotidine [Pepcid] 20 mg PO DAILY@08 07/30/21 07/30/21 07/30/21 07:30 History fluticasone propionate [Flonase] 1 spray INTRANASAL BID PRN 07/30/21 07/30/21 Unknown History bywngyuseem-napqvlzko-tdmzetiy 1 inh INHALATION DAILY@08 07/30/21 07/30/21 07/30/21 07:30 History [Trelegy Ellipta] insulin glargine [Lantus Solostar 15 unit SUBCUT BEDTIME 07/30/21 07/30/21 Unknown History U-100 Insulin] magnesium hydroxide [Milk of 30 ml PO DAILY PRN 07/30/21 07/30/21 Unknown History Magnesia] metoprolol succinate 25 mg PO DAILY@07 07/30/21 07/30/21 07/30/21 07:30 History ondansetron HCl [Zofran] 4 mg PO Q4H PRN 07/30/21 07/30/21 07/29/21 History oxycodone 5 mg PO Q6H PRN 07/30/21 07/30/21 07/27/21 History promethazine [Phenergan] 25 mg IM Q6H PRN 07/30/21 07/30/21 07/26/21 History promethazine [Phenergan] 25 mg OK Q6H PRN 07/30/21 07/30/21 Unknown History scopolamine base 1 patch TRANSDERMAL Q3D 07/30/21 07/30/21 Unknown History simethicone 80 mg PO BID PRN 07/30/21 07/30/21 Unknown History sodium phosphates [Enema 118 ml OK DAILY PRN 07/30/21 07/30/21 Unknown History Disposable] Allergies Allergy/AdvReac Type Severity Reaction Status Date / Time acetaminophen [From Tylenol] Allergy Unknown Verified 05/15/21 09:47 PFSH Acute PFSH: Medical History (Updated 07/31/21 @ 00:34 by Hansa Guillaume MD) Ataxia Bladder cancer BPH (benign prostatic hyperplasia) Encephalopathy GERD (gastroesophageal reflux disease) Hematuria Insulin dependent diabetes mellitus Muscle weakness Type 2 diabetes mellitus Surgical History (Updated 07/30/21 @ 20:03 by Hansa Guillaume MD) History of nephrectomy Family History (Updated 07/31/21 @ 00:36 by Hansa Guillaume MD) Other Diabetes Denies family history of Dementia Social History (Updated 07/31/21 @ 00:37 by Hansa Guillaume MD) Smoking and tobacco status: unknown if ever smoked Alcohol intake: unknown Substance/Drug Use: unknown Vitals/I&O/Wt Last Vital Signs Pulse 92 07/30/21 18:11 Resp 15 07/30/21 16:27 BP 129/111 07/30/21 19:00 Pulse Ox 90 07/30/21 18:11 Weight last 48 hrs Weight 120.202 kg Physical Exam Narrative: EXAM NARRATIVE: male He was laying supine Left dialysis catheter in IJ No active bleeding Pleasantly confused, oriented to himself Hemodynamically stable Surgical scar ginger noted on abdomen Tender to palpate Lower extremity no edema No focal deficits noted Saturating well on room air Data : 07/30/21 18:00 07/30/21 18:00 A&P Assessment and plan (1) Acute kidney injury: Status: Acute (2) Altered mental status: Status: Acute (3) Acute uremia: Status: Acute (4) Hyperkalemia: Status: Acute (5) Metabolic encephalopathy: Status: Acute Additional A&P Information Acute kidney injury Hyperkalemia No severe acidosis Single kidney, recent nephrectomy as per the nursing staff report custodial documentation reviewed, bladder cancer has been listed as one of the diagnosis I was not able to get in touch with the nursing staff at [facility], please call in the morning to get more details Patient is not able to provide much detail because of his acute delirium Nephro consulted Dialysis catheter placed by Dr. Bellamy in the ER Nephro has been updated and consulted Patient is afebrile Blood pressure is stable Full code Renal dialysis diet to be started Mild hyperkalemia: We will give 1 dose of Kayexalate I will keep him on ceftriaxone for pyuria noted on UA Attestations Medical Necessity Statement*: More than 2 midnights in the hospital anticipated Time Spent in Patient Care: Greater than 35 minutes Coding Level of Care Code Acute Brand Marketing Intern for Chg Fwd Diagnoses Acute kidney injury N17.9 Altered mental status R41.82 Acute uremia N19 Hyperkalemia E87.5 Metabolic encephalopathy G93.41
[2021-07-30 20:45] LABS: Procalcitonin 0.29 ng/mL (0-0.5)
--- NOTE | 2021-07-30 21:45 | XRR_ITS ---
PROCEDURE INFORMATION: Exam: XR Chest Exam date and time: 07/30/2021 9:45 PM Age: 75 years old Clinical indication: Device placement; Other: Dialysis; Additional info: Post dialysis placement TECHNIQUE: Imaging protocol: XR of the chest. Views: 1 view. COMPARISON: CR XR chest 1V portable [id number] 07/30/2021 4:55 PM FINDINGS: Tubes, catheters and devices: Left central line terminates in the mid SVC. Lungs: No consolidation. Pleural spaces: Unremarkable. No pleural effusion. No pneumothorax. Heart/Mediastinum: Unremarkable. No cardiomegaly. Bones/joints: Visualized osseous structures are intact. XR/XR chest 1V portable [id number] IMPRESSION: Left central line terminates in the mid SVC. Radiation Dose CTDIVOL = (mGy): DLP = (mGy-cm)
[2021-07-30 22:12] LABS: Troponin 5 2HR 36.25 ng/L (0-15)
[2021-07-30 22:19] LABS: Troponin 5 2HR Delta -2.75 ABS# (0-10)
--- NOTE | 2021-07-30 22:34 | ECG_ITS ---
[facility] Test Date: 2021-07-30 Pat Name: Nadir Sarkar Department: Room: ICU10 Gender: Male Therapeutic Specialist: : 1945 Requested By: Pancho Bellamy Order Number: [id number] Dalia MD: Nemesio Chavis M.D. Measurements Intervals [place] Rate: 88 P: -30 RI: 174 QRS: -69 QRSD: 87 T: 75 QT: 386 QTc: 467 Interpretive Statements SINUS RHYTHM LEFT AXIS DEVIATION [QRS AXIS < -30] LOW QRS VOLTAGE [QRS DEFLECTION < 0.5/1.0 mV IN LIMB/CHEST LEADS] PATTERN CONSISTENT WITH PULMONARY DISEASE ST DEVIATION AND MODERATE T-WAVE ABNORMALITY, CONSIDER ANTERIOR ISCHEMIA [-0.1+ mV T-WAVE IN V3/V4] Compared to ECG 07/30/2021 17:37:59 Supraventricular tachycardia no longer present T-wave abnormality still present Possible ischemia still present Electronically Signed On 08-01-2021 17:48:36 PROJECT ENGINEERING MANAGER by Nemesio Chavis M.D. [email or web address]
[2021-07-30] MEDS: cefepime 2,000 MG in sodium chloride 0.9% (plus) 50 ML 100 MG IV (23:01)
[2021-07-30 23:13] LABS: Bilirubin Urine 1+ (Negative); Blood Urine Neg (Negative); Glucose Urine UA Norm (Normal); Ketones Urine 1+ (Negative); Leukocyte Esterase Urine Trace (Negative); Nitrate Urine Negative (Negative); Protein Urine Neg (Negative); Urine Appearance Clear (CLEAR); Urine Color Dark Yellow (Yellow); Urobilinogen Urine Norm (Negative); pH Urine 5 (5-7)
[2021-07-30 23:14] LABS: Add Urine Microscopic? YES; Bacteria Urine TRACE /hpf; Oval Fat Bodies Urine 10 /hpf; Squamous Epithelial Cell Urine 0-4 /hpf (0-5)
--- NOTE | 2021-07-30 23:43 | PM.CONSULT ---
Providers/Reason For Consult Consulting Physician/Specialty*: Nephrology Reason for Consult*: Eval for CARLITO Attending Physician: Saeid Bailey Primary Care Provider: Laurent Whitaker MD History of Present Illness History of Present Illness Patient seen last night, note placed this morning. Essentially he was transferred in for altered mental status yesterday. Given the confusion, it was unclear as to his recent clinical history. I do appreciate from the nursing facility that there were no new obvious symptoms to account for his confusion. There is no report of any recent exposure to new medication or potentially nephrotoxic substances although we have an incomplete database for this. Dialysis line was placed, IV fluids initiated. From the information we have, serum creatinine 1.2 on 07/06/2021 which likely represents his baseline. On admission serum creatinine 3.7. Medeiros catheter placed with minimal urine output. No obstruction seen on renal imaging. Hemodynamics remain relatively stable and no requirement for vasopressor agents at this time. Review of Systems General: Reports: ROS unobtainable due to medical condition and ROS unobtainable due to mental status Meds/Allergies Home Medications and Allergies Home Medications Medication Instructions Recorded Confirmed Last Taken Type loratadine 10 mg PO DAILY@05/15/21 07/30/21 07/30/21 History metformin 1,000 mg PO BID@05/15/21 07/30/21 07/30/21 07:30 History Two Ned 90 ml PO TID 07/30/21 07/30/21 Unknown History albuterol sulfate 2 puff INHALATION Q6H PRN 07/30/21 07/30/21 Unknown History alum-mag hydroxide-simeth [Mylanta 30 ml PO Q4H PRN 07/30/21 07/30/21 Unknown History Maximum Strength] aspirin [Aspir-81] 81 mg PO DAILY@07/30/21 07/30/21 07/30/21 History atorvastatin 20 mg PO DAILY@07/30/21 07/30/21 07/29/21 History bisacodyl 10 mg VA DAILY PRN 07/30/21 07/30/21 Unknown History famotidine [Pepcid] 20 mg PO DAILY@07/30/21 07/30/21 07/30/21 07:30 History fluticasone propionate [Flonase] 1 spray INTRANASAL BID PRN 07/30/21 07/30/21 Unknown History eymjdaxhgtr-qelwhalik-edahupus 1 inh INHALATION DAILY@08 07/30/21 07/30/21 07/30/21 07:30 History [Trelegy Ellipta] insulin glargine [Lantus Solostar 15 unit SUBCUT BEDTIME 07/30/21 07/30/21 Unknown History U-100 Insulin] magnesium hydroxide [Milk of 30 ml PO DAILY PRN 07/30/21 07/30/21 Unknown History Magnesia] metoprolol succinate 25 mg PO DAILY@07 07/30/21 07/30/21 07/30/21 07:30 History ondansetron HCl [Zofran] 4 mg PO Q4H PRN 07/30/21 07/30/21 07/29/21 History oxycodone 5 mg PO Q6H PRN 07/30/21 07/30/21 07/27/21 History promethazine [Phenergan] 25 mg IM Q6H PRN 07/30/21 07/30/21 07/26/21 History promethazine [Phenergan] 25 mg VA Q6H PRN 07/30/21 07/30/21 Unknown History scopolamine base 1 patch TRANSDERMAL Q3D 07/30/21 07/30/21 Unknown History simethicone 80 mg PO BID PRN 07/30/21 07/30/21 Unknown History sodium phosphates [Enema 118 ml VA DAILY PRN 07/30/21 07/30/21 Unknown History Disposable] Allergies Allergy/AdvReac Type Severity Reaction Status Date / Time acetaminophen [From Tylenol] Allergy Unknown Verified 05/15/21 09:47 Current Medications Current Medications Generic Name Dose Route Start Last Admin Trade Name Freq PRN Reason Stop Dose Admin Ceftriaxone Sodium 1,000 mg/ 50 mls @ 100 mls/hr 07/31/21 01:00 07/31/21 03:43 Sodium Chloride IV Infused Q24H TOMMY Infusion Protocol Senna/Docusate Sodium 1 tab 07/31/21 09:00 07/31/21 08:23 Sennosides-Docusate Tablet PO 1 tab DAILY TOMMY Administration PFSH Acute PFSH: Medical History (Updated 07/31/21 @ 00:34 by Hansa Guillaume MD) Ataxia Bladder cancer BPH (benign prostatic hyperplasia) Encephalopathy GERD (gastroesophageal reflux disease) Hematuria Insulin dependent diabetes mellitus Muscle weakness Type 2 diabetes mellitus Surgical History (Updated 07/30/21 @ 20:03 by Hansa Guillaume MD) History of nephrectomy Family History (Updated 07/31/21 @ 00:36 by Hansa Guillaume MD) Other Diabetes Denies family history of Dementia Social History (Updated 07/31/21 @ 00:37 by Hansa Guillaume MD) Smoking and tobacco status: unknown if ever smoked Alcohol intake: unknown Substance/Drug Use: unknown Vitals/I&O/Wt Last Vital Signs Temp 97.2 F L 07/31/21 08:35 Pulse 82 07/31/21 09:00 Resp 18 07/31/21 09:00 BP 110/66 07/31/21 09:00 Pulse Ox 95 07/31/21 09:00 07/30/21 07/31/21 07/31/21 22:59 06:59 14:59 Intake Total 500 / 500 100 / 600 Output Total 300 / 300 Balance 500 / 500 -200 / 300 Weight last 48 hrs Weight 120.202 kg Physical Exam Narrative: EXAM NARRATIVE: Constitutional: Awake, comfortable, pleasantly confused HEENT: Wet mucosa, no jvp, non icteric Lungs: Bilaterally clear without discernible wheeze, rales in all lung zones CVS: S1 S2, no murmurs Abdo: Soft, BS ok Ext 4: Minimal edema, peripheral perfusion with no cyanosis Neurological: Grossly non-focal Urinary Catheter Management^: Medeiros Latex: Cath Placed During This Visit: yes Reason for Continuing Indwelling Catheter: Accurate Measurement of Urinary Output in Critically Ill Patients Urinary Catheter Date of Insertion: 07/30/21 Urinary Catheter Time of Insertion: 22:41 A&P Additional A&P Information 1. Renal failure Unclear etiology and incomplete database and as such, differential diagnosis remains broad. Common things being common, prerenal azotemia is the most likely diagnosis and I agree with some gentle IV hydration throughout the evening. Given his overt confusion, this may be an indication for dialysis i.e. uremic symptoms, however, will give him the next 6 to 7 hours also to see if he responds with supportive therapy with IV hydration. We will do a limited work-up to include CPK, uric acid, urinalysis, urine electrolytes. Avoid usual nephrotoxic agents Dose medications for GFR less than 50 2. Confusion Only obvious etiology is the uremia. Of note there is no level of BUN that would be associated with uremia given the very broad variability given individual manifestation. The only way to know with any certainty is to provide hemodialysis. If he still overtly encephalopathic in the morning, I will likely dialyze him. Continue other metabolic work-up per hospitalist team including infectious etiology etc. Rocephin on board 3. Chemistry Minor noncritical aberration including slight increase in serum potassium, close monitoring of serum electrolytes over the next few days. Thank you for consultation, as always it is a pleasure to follow these cases with you Stephen Polo MD Nephrology [phone] Patient seen and examined via telemedicine, with the assistance of the bedside RN > 25 min spent in evaluation and mgmt of patient Coding Level of Care Code Acute Transportation Escort for Rosemarie Monreal
[2021-07-31] VITALS (210 sets, daily range): BP systolic 82–140; BP diastolic 57–94; PULSE 66–124; RESP 12–36; TEMP 36.2–36.6; O2SAT 76–99
[2021-07-31] MEDS: sodium chloride 0.9% 1,000 ML 100 ML IV (00:25)
[2021-07-31 00:50] LABS: Troponin 5 6HR 38.56 ng/L (0-15)
[2021-07-31 01:11] LABS: Troponin 5 6HR Delta -0.44 ng/L (0-12)
[2021-07-31 01:42] LABS: Creatine Phosphokinase 19 U/L (39-308); Phosphorus 3.4 mg/dL (2.5-4.5); Thyroid Stimulating Hormone 1.31 uIU/mL (0.27-4.20); Uric Acid 13.8 mg/dL (3.4-7.0)
[2021-07-31] MEDS: cefTRIAXone 1,000 MG in sodium chloride 0.9% (plus) 50 ML 100 MG IV (01:54)
[2021-07-31 02:49] LABS: Creatinine Urine, Random 212 mg/dL (39-259); Urine Random Sodium 28 mmol/L
--- NOTE | 2021-07-31 04:13 | PC.NURSE ---
Patient resting in bed, continues to yell out, pulls at lines. Continue care.
[2021-07-31 04:43] LABS: Basophils # 0.1 10^3/uL (0.0-0.1); Basophils % 0.6 %; Eosinophils # 0.1 10^3/uL (0.0-0.8); Eosinophils % 0.6 %; Hematocrit 44.7 % (42.0-52.0); Hemoglobin 14.1 g/dL (11.7-16.6); Lymphocytes # 1.7 10^3/uL (0.8-4.8); Lymphocytes % 15.2 %; Mean Corpuscular HGB Conc 31.5 g/dL (30.0-36.0); Mean Corpuscular Hemoglobin 28.7 pg (28.0-34.0); Mean Platelet Volume 12.2 fL (7.4-10.4); Monocytes # 0.9 10^3/uL (0.2-0.9); Monocytes % 8.1 %; Neutrophils # 8.24 10^3/uL (1.8-7.7); Nucleated Red Blood Cells % 0 %; Platelet Count 279 10^3/cmm (130-400); Red Blood Count 4.91 10^6/uL (4.1-5.3); Red Cell Distribution Width 16.3 % (12.1-15.1)
[2021-07-31 05:24] LABS: Alanine Aminotransferase 7 U/L (0-41); Albumin Level 3.5 g/dL (3.5-5.2); Alkaline Phosphatase 120 IU/L (40-130); Aspartate Amino Transferase 11 U/L (0-40); Blood Urea Nitrogen 73 mg/dL (8-23); C Reactive Protein 31.2 mg/L (0.0-4.9); Calcium 9.5 mg/dL (8.5-10.5); Carbon Dioxide 23 mmol/L (22-29); Chloride 109 mmol/L (98-107); Globulin 3.7 g/dL (1.3-4.6); Glucose 147 mg/dL (65-115); Magnesium 2.3 mg/dL (1.7-2.3); Osmolality Calculated 328 mOsm/kg (285-295); Sodium 147 mmol/L (136-145); Total Bilirubin 0.5 mg/dL (0.15-1.2); Total Protein 7.2 g/dL (6.6-8.7)
[2021-07-31 05:36] LABS: ABG PCO2 34.9 mmHg (35-45); ABG PH Result 7.43 (7.35-7.45); Arterial Blood Gas Hematocrit 52.8 % (42-52); Base Excess ABG -0.8 mmol/L (-2.0-2.0); Blood Gas Allen Test Pos; Blood Gas Sample Site Radial, right; HCO3 ABG 22.9 mmol/L (22-26); Oxygen Device ROOM AIR; PO2 ABG 64.8 mmHg (80.0-100.0)
[2021-07-31] MEDS: sennosides-docusate Tablet 1 TAB PO (08:23)
[2021-07-31 08:41] LABS: Blood Gas Operator Identificat Anonymous; Blood Gas Sample Type CalVer
--- NOTE | 2021-07-31 10:16 | PC.NURSE ---
Delay in starting 1/2 normal saline due to no IV access. Patient pulled out IV. Need ultrasound to place new one. Waiting on ultrasound to become available.
--- NOTE | 2021-07-31 10:54 | PC.NURSE ---
Currently, patient can answer person/place/time/situation orientation questions, but has underlying confusion. Is currently restrained due to pulling out IV lines. Pulled out 2 overnight and one today. Nurse called Mercedes and spoke to his nurse. Per thor, his baseline was alert and oriented. No confusion or agitation. After he got back from the nephrectomy he has been confused and occasionally combative.
--- NOTE | 2021-07-31 10:58 | PC.NURSE ---
Patient is unable to give or refuse consent fro dialysis due to current mental status. Nurse attempted to call sister for consent. No answer. Nurse called patient's Efe talley, and received verbal consent. second nurse witnessed paper consent in chart.
--- NOTE | 2021-07-31 11:44 | PM.PN ---
Subjective Subjective: Interval history: Overnight Mr. Sarkar has not had an improvement in his cognition. Urine output recorded at 300 mL. No overt seizures or myoclonus. No extremity edema, shortness of breath or other hypervolemic symptoms. Vitals/I&O/Wt Last Vital Signs Temp 97.2 F L 07/31/21 08:35 Pulse 82 07/31/21 09:00 Resp 18 07/31/21 09:00 BP 110/66 07/31/21 09:00 Pulse Ox 95 07/31/21 09:00 07/30/21 07/31/21 07/31/21 22:59 06:59 14:59 Intake Total 500 / 500 100 / 600 Output Total 300 / 300 Balance 500 / 500 -200 / 300 Weight last 48 hrs Weight 120.202 kg Physical Exam Narrative: EXAM NARRATIVE: Constitutional: Awake, comfortable, pleasantly confused HEENT: Wet mucosa, no jvp, non icteric Lungs: Bilaterally clear without discernible wheeze, rales in all lung zones CVS: S1 S2, no murmurs Abdo: Soft, BS ok Ext 4: Minimal edema, peripheral perfusion with no cyanosis Neurological: Grossly non-focal Urinary Catheter Management^: Medeiros Latex: Cath Placed During This Visit: yes Reason for Continuing Indwelling Catheter: Accurate Measurement of Urinary Output in Critically Ill Patients Urinary Catheter Date of Insertion: 07/30/21 Urinary Catheter Time of Insertion: 22:41 Data : 07/31/21 03:50 07/31/21 03:50 A&P Additional A&P Information 1. Renal failure Unclear etiology and incomplete database and as such, differential diagnosis remains broad. Likely pre-renal Given persistent confusion, will exclude uremia by providing a gentle session of dialysis for 2 L, 2K bath, low blood and dialysate flows. Avoid usual nephrotoxic agents Dose medications for GFR less than 50 2. Confusion Only obvious etiology is the uremia. Of note there is no level of BUN that would be associated with uremia given the very broad variability given individual manifestation. The only way to know with any certainty is to provide hemodialysis and I will do this today Continue other metabolic work-up per hospitalist team including infectious etiology etc. Rocephin on board 3. Chemistry Minor noncritical aberration; daily labs Thank you for consultation, as always it is a pleasure to follow these cases with you Stephen Polo MD Nephrology [phone] Patient seen and examined via telemedicine, with the assistance of the bedside RN > 25 min spent in evaluation and mgmt of patient Attestations Medical Necessity Statement*: eval for CARLITO Coding Level of Care Code Acute Compliance Quality Performance Analyst for Rosemarie Monreal
[2021-07-31] MEDS: alteplase 1 mg/mL SDV 2 mL 2 MG INTRACATH ×2 (12:59→13:01)
[2021-07-31] MEDS: sodium chloride 0.45% 1,000 ML 100 ML IV (13:00)
[2021-07-31 13:57] LABS: Hepatitis B Surface Antigen Non-Reactive (Nonreactive)
--- NOTE | 2021-07-31 15:08 | PM.PN ---
Subjective Subjective: Interval history: Confused as to where he is, states he is at skilled nursing. Reports that the breakfast was disagreeable with him, but not providing details. Denies chest pain or pressure. Denies abdominal pain or discomfort. Denies trouble breathing. Vitals/I&O/Wt Last Vital Signs Temp 97.9 F 07/31/21 13:00 Pulse 83 07/31/21 14:04 Resp 16 07/31/21 14:04 BP 140/67 07/31/21 13:20 Pulse Ox 94 07/31/21 14:04 07/31/21 07/31/21 07/31/21 06:59 14:59 22:59 Intake Total 100 / 600 Output Total 300 / 300 250 / 250 Balance -200 / 300 -250 / -250 Weight last 48 hrs Weight 120.202 kg Physical Exam Const: COMMON NORMALS: no acute distress GENERAL APPEARANCE: cooperative and comfortable NUTRITIONAL APPEARANCE: obese ORIENTATION/CONSCIOUSNESS: Yes awake and Yes confused HENMT: COMMON NORMALS: oropharynx normal Neck/C-Spine: COMMON NORMALS: no JVD Resp: COMMON NORMALS: normal respiratory effort and clear to auscultation bilaterally AUSCULTATION: clear to auscultation bilaterally Cardio: COMMON NORMALS: no JVD, regular rhythm, S1 normal heart sound present, S2 normal heart sound present and No murmurs present (Cardio) RHYTHM: regular rhythm HEART SOUNDS: S1 normal heart sound present and S2 normal heart sound present GI: COMMON NORMALS: Normal to inspection, nondistended, normoactive bowel sounds present, Soft to palpation and non-tender PALPATION: Yes Soft to palpation Extremity: COMMON NORMALS: no joint enlargement and no pedal edema Neuro: COMMON NORMALS: moves all extremities Skin: COMMON NORMALS: no rashes or lesions noted GENERAL SKIN EXAM: no rashes or lesions noted Urinary Catheter Management^: Medeiros Latex: Cath Placed During This Visit: yes Reason for Continuing Indwelling Catheter: Accurate Measurement of Urinary Output in Critically Ill Patients Urinary Catheter Date of Insertion: 07/30/21 Urinary Catheter Time of Insertion: 22:41 Data : 07/31/21 03:50 07/31/21 03:50 A&P Assessment and plan (1) Acute kidney injury: Had been receiving IV fluid challenge. No improvement. Plan for hemodialysis. Dialysis catheter malfunction, to be replaced. Discussed with Dr. Mu. Appreciate assistance and replacement. With possible uremia, persistent confusion. Medeiros catheter for accurate I&O. Status: Acute (2) Altered mental status: Possibly secondary to uremia. Monitor for fever or other signs of sepsis, no abdominal pain or discomfort in light of recent nephrectomy. Picking at his IV and pulling on the dressing, going on blankets, other things around him. Needs close monitoring, risk of pulling out IV, Mdeeiros. Could go to medical floor with one-to-one sitter. Possible UTI: Continue ceftriaxone. Follow-up urine culture. Will request to add urine culture. Status: Acute (3) Acute uremia: Status: Acute (4) Hyperkalemia: Status: Acute (5) Metabolic encephalopathy: Status: Acute Additional A&P Information Recent nephrectomy at [facility] in [place]. Medical records have been obtained. Attestations Medical Necessity Statement*: Continue admission for assessment management of acute kidney injury, with persistent encephalopathy, possibly metabolic, possible UTI. Following recent nephrectomy. Coding Level of Care Code Acute Fire Fighting Equipment Specialist for [facility] Fwd Exam Comprehensive Diagnoses Acute kidney injury N17.9 Altered mental status R41.82 Acute uremia N19 Hyperkalemia E87.5 Metabolic encephalopathy G93.41
--- NOTE | 2021-07-31 16:15 | PC.NURSE ---
Nurse observed that patients mouth appears dry. Nurse offered the patient a drink and he said he wanted one, but when a straw was placed in his mouth he wouldn't drink from it. When questioned about not drinking he would just repeat the word Right . Nurse attempted to swab the patient's mouth with a moistened mouth swab, but the patient would shake head from side to side and tightly close his lips, preventing care.
[2021-07-31 16:16] LABS: Glucose Point of Care 145 mg/dL (70-110)
--- NOTE | 2021-07-31 17:08 | PC.NURSE ---
Addendum entered by Guanakito Wright RN 07/31/21 18:53: Shift Summary: Patient rested in bed throughout the day. Patient is confused, sometimes able to answer orientation questions, other times not. He has become increasingly lethargic and Dr Zuleta has been notified of this. Dialysis was ordered, but not completed. Dialysis catheter is clotted and required replacement. Dr Stewart was able to replace at end of shift. Urine output for day shift 07/31/2021 was 450 mL. Near the end of shift, patient went into AFIB. Verified with EKG. Received prn metoprolol orders form DR zuleta. Original Note: Shift Summary: Overall, uneventful shift. Patient rested in bed throughout the day. Patient is confused, sometimes able to answer orientation questions, other times not. He has become increasingly lethargic and Dr Zuleta has been notified of this. Dialysis was ordered, but not completed. Dialysis catheter is clotted and requires replacement. Currently waiting on Dr. Bellamy to become available to replace catheter.
--- NOTE | 2021-07-31 17:40 | ECG_ITS ---
[facility] Test Date: 2021-07-31 Pat Name: Nadir Sarkar Department: Room: ICU10 Gender: Male Geospatial Information Technologist: : 1945 Requested By: Saeid Bailey Order Number: [id number] Dalia MD: Nemesio Chavis M.D. Measurements Intervals [place] Rate: 111 P: OR: QRS: -68 QRSD: 90 T: 70 QT: 314 QTc: 427 Interpretive Statements ATRIAL FIBRILLATION WITH RAPID VENTRICULAR RESPONSE LEFT AXIS DEVIATION [QRS AXIS < -30] LOW QRS VOLTAGE [QRS DEFLECTION < 0.5/1.0 mV IN LIMB/CHEST LEADS] PATTERN CONSISTENT WITH PULMONARY DISEASE MINIMAL ST DEPRESSION [0.025+ mV ST DEPRESSION] Compared to ECG 07/30/2021 22:47:48 ST (T wave) deviation now present Sinus rhythm no longer present T-wave abnormality no longer present Possible ischemia no longer present Electronically Signed On 08-01-2021 17:44:51 [employer]INESE MEDICINE PRACTITIONER by Nemesio Chavis M.D. [email or web address]
--- NOTE | 2021-07-31 18:19 | XRR_ITS ---
PROCEDURE INFORMATION: Exam: XR Chest Exam date and time: 07/31/2021 6:19 PM Age: 75 years old Clinical indication: Other vascular access device placement or adjustment; Other: Dialysis catheter placement TECHNIQUE: Imaging protocol: XR of the chest. Views: 1 view. COMPARISON: CR (CHEST, ) 07/30/2021 9:52 PM FINDINGS: Tubes, catheters and devices: Interval placement of a right internal jugular central line with the tip in the upper SVC adjacent to the tip previously demonstrated lling left internal jugular central line. Lungs: Lungs are clear bilaterally. Pleural spaces: No pleural effusion. No pneumothorax. Heart/Mediastinum: Stable mild enlargement of the cardiac silhouette. Mediastinal contours are unremarkable. Bones/joints: Degenerative changes in the spine and shoulders. XR/XR chest 1V portable [id number] IMPRESSION: 1. Interval placement of a right internal jugular central line with the tip in the upper SVC adjacent to the tip previously demonstrated lling left internal jugular central line. 2. No acute cardiopulmonary process. 3. Incidental/nonacute findings are listed in the report. Radiation Dose CTDIVOL = (mGy): DLP = (mGy-cm)
--- NOTE | 2021-07-31 18:27 | PM.ACPR ---
Procedure/Consent Time out: Time Out Performed: Yes Consent: Consent for Procedure: Consent obtained from other (indicate) Procedure Narrative: Procedure time: 1814 Procedure: Ultrasound-guided identification of the right internal jugular vein and placement of 12 Fr 16 cm Nontunneled hemodialysis catheter insertion Indication: Renal failure requiring hemodialysis [employer] Firefighter(s): Edwin Stewart MD Consent: Obtained from NOK and placed in chart Site: Right internal jugular Anesthesia: 5 cc 1% lidocaine without epinephrine Description: After doing timeout with patient's RN at bedside, area of interest were identified with ultrasound, prepped with chlorhexidine and draped in a sterile manner. 1% lidocaine given for local anesthesia. Introducer needle was introduced into right internal jugular vein using ultrasound guidance, once blood is aspirated, guidewire passed through the needle. Introducer needle was removed while leaving the guidewire in the right internal jugular vein and confirmed placement of guidewire with the help of ultrasound. Right IJ catheter inserted using Seldinger technique after appropriate dilation with 2 serial dilators. Guidewire was removed after insertion of right IJ hemodialysis catheter. All ports katelyn blood and were flushed with normal saline. Ultrasound guidance used: Yes Placement confirmed by: Ultrasound, chest x-ray. Complications: None. Patient tolerated procedure well Edwin Stewart MD Pulmonary Critical Care Acute Procedures Epistaxis Control: Time out performed: Yes
[2021-07-31] MEDS: piperacillin-tazobactam 3.375 GM in sodium chloride 0.9% (plus) 50 ML IV (19:05)
[2021-07-31 19:21] LABS: Blood Urea Nitrogen 65 mg/dL (8-23); Calcium 9.1 mg/dL (8.5-10.5); Carbon Dioxide 22 mmol/L (22-29); Chloride 107 mmol/L (98-107); Glucose 158 mg/dL (65-115); Osmolality Calculated 322 mOsm/kg (285-295); Sodium 145 mmol/L (136-145)
[2021-07-31 19:22] LABS: Anion Gap 21.1 (5-19); Potassium 5.1 mmol/L (3.5-5.1)
[2021-08-01] VITALS (51 sets, daily range): BP systolic 97–181; BP diastolic 51–141; PULSE 79–118; RESP 12–27; TEMP 36.5–36.6; O2SAT 82–99; BMI 30.3
[2021-08-01] MEDS: sodium chloride 0.45% 1,000 ML 100 ML IV (01:00)
[2021-08-01] MEDS: piperacillin-tazobactam 3.375 GM in sodium chloride 0.9% (plus) 50 ML IV ×2 (05:44→17:39)
--- NOTE | 2021-08-01 05:50 | PC.NURSE ---
Abdominal Pain Patient called out of room complaining of abdominal pain. Patients HR slightly elevated, arms rubbing stomach, while patient was grimacing. Pain rated at a 5 on the Guerra-Quiñones Faces scale. Dr. Garcia notified of pain and order received for Tramodol Q 6 hours PRN for moderate pain. Medication administered per NOV, position changed, and heat applied. Reassessment made: patient sleeping restfully, all vitals stable.
[2021-08-01] MEDS: nystatin powder 15 gm Btl 1 APPLIC TOPICAL (05:56)
[2021-08-01] MEDS: TRAMadol 50 mg Tablet PO (05:58)
--- NOTE | 2021-08-01 06:30 | PC.NURSE ---
Telenephrology Telenephrology consult completed with Dr. Maldonado. Intention for dialysis today.
[2021-08-01 06:40] LABS: Basophils # 0.1 10^3/uL (0.0-0.1); Basophils % 0.7 %; Eosinophils # 0.2 10^3/uL (0.0-0.8); Eosinophils % 1.7 %; Hematocrit 44.9 % (42.0-52.0); Hemoglobin 13.5 g/dL (11.7-16.6); Lymphocytes # 1.4 10^3/uL (0.8-4.8); Lymphocytes % 15.7 %; Mean Corpuscular HGB Conc 30.1 g/dL (30.0-36.0); Mean Corpuscular Hemoglobin 28.2 pg (28.0-34.0); Mean Corpuscular Volume 93.9 fl (80-94); Mean Platelet Volume 12.1 fL (7.4-10.4); Monocytes # 0.7 10^3/uL (0.2-0.9); Monocytes % 8.2 %; Neutrophils # 6.47 10^3/uL (1.8-7.7); Neutrophils % 73.1 %; Nucleated Red Blood Cells % 0 %; Platelet Count 205 10^3/cmm (130-400); Red Blood Count 4.78 10^6/uL (4.1-5.3); Red Cell Distribution Width 16.1 % (12.1-15.1); White Blood Count 8.9 10^3/uL (4.0-10.0)
--- NOTE | 2021-08-01 06:56 | PC.NURSE ---
Shift Note Frequent safety and comfort rounds continue. Orders and/or nursing care completed as indicated. Throughout shift, patient remained confused, oriented only to person. Periodically patient will shout family members names aloud and talk about needing to get money to pay his orthodoxy. Additionally, patient attempts to pull at lines despite medical restraints remaining in place. Reorientation and education regarding care provided multiple times as needed. Education provided includes importance of leaving telemetry wires on/leaving IV in, reorientation to place and situation, and fall risk limitations. Patient monitored for response to intervention and treatment(s). Patient unable to comprehend education and needs reinforcement. Will continue to monitor.
[2021-08-01 07:18] LABS: Alanine Aminotransferase 6 U/L (0-41); Albumin Level 3.2 g/dL (3.5-5.2); Alkaline Phosphatase 108 IU/L (40-130); Blood Urea Nitrogen 59 mg/dL (8-23); Carbon Dioxide 19 mmol/L (22-29); Chloride 109 mmol/L (98-107); Globulin 3.3 g/dL (1.3-4.6); Glucose 154 mg/dL (65-115); Magnesium 2.1 mg/dL (1.7-2.3); Osmolality Calculated 316 mOsm/kg (285-295); Phosphorus 2.6 mg/dL (2.5-4.5); Sodium 143 mmol/L (136-145); Total Bilirubin 0.6 mg/dL (0.15-1.2); Total Protein 6.5 g/dL (6.6-8.7)
[2021-08-01 07:22] LABS: Anion Gap 19.6 (5-19); Aspartate Amino Transferase 10 U/L (0-40); Potassium 4.6 mmol/L (3.5-5.1)
--- NOTE | 2021-08-01 08:03 | PM.PN ---
Subjective Subjective: Interval history: lethargic, new rt ij dialysis catheter placed. weak, not answering appropriately. Medications: Reviewed: Yes Medication Review Details: Current Medications Albuterol/Ipratropium (Ipratropium-Albuterol 3 Ml Neb) 3 ml INHALATION Q6H PRN PRN Reason: SHORTNESS OF BREATH Alteplase, Recombinant (Alteplase 1 Mg/Ml Sdv 2 Ml) 2 mg INTRACATH ONCE PRN PRN Reason: For clotted access Last Admin: 07/31/21 12:59 Dose: 2 mg Documented by: Sodium Chloride (Sodium Chloride 0.45%) 1,000 mls @ 100 mls/hr IV .Q10H TOMMY Last Admin: 08/01/21 01:00 Dose: 100 mls/hr Documented by: Piperacillin Sod/Tazobactam (Sod 3.375 gm/ Sodium Chloride) 50 mls @ 12.5 mls/hr IV Q12H TOMMY; Protocol Last Admin: 08/01/21 05:44 Dose: 12.5 mls/hr Documented by: Metoprolol Tartrate (Metoprolol Tartrate 1 Mg/1 Ml Sdv 5 Ml) 2.5 mg IVP Q6H PRN PRN Reason: HEART RATE-HIGH Nystatin (Nystatin Powder 15 Gm Btl) 1 applic TOPICAL BID PRN PRN Reason: SKIN IRRITATION Last Admin: 08/01/21 05:56 Dose: 1 applic Documented by: Ondansetron HCl (Ondansetron 2 Mg/Ml Sdv 2 Ml) 4 mg IVP Q6H PRN PRN Reason: NAUSEA AND VOMITING Senna/Docusate Sodium (Sennosides-Docusate Tablet) 1 tab PO DAILY TOMMY Last Admin: 07/31/21 08:23 Dose: 1 tab Documented by: Tramadol HCl (Tramadol 50 Mg Tablet) 50 mg PO Q6H PRN PRN Reason: MODERATE PAIN Last Admin: 08/01/21 05:58 Dose: 50 mg Documented by: Vitals/I&O/Wt Last Vital Signs Temp 97.7 F 08/01/21 07:57 Pulse 105 H 08/01/21 07:57 Resp 18 08/01/21 07:57 BP 122/94 08/01/21 07:57 Pulse Ox 97 08/01/21 07:57 1108/01/21 08/01/21 22:59 06:59 14:59 Intake Total 111 / 111 0 / 2161 Output Total 150 / 400 525 / 925 Balance -39 / -289 1525 / 1236 Weight last 48 hrs Weight 101.469 kg Weight 120.202 kg Physical Exam Narrative: EXAM NARRATIVE: elderly in bed, NARD, confused vs noted heent- nc/at, eomi, anicteric neck supple lungs clear b/l heart- reg, NSR abd soft, nt, nd ext no edema neuro- confused, weak Urinary Catheter Management^: Medeiros Latex: Cath Placed During This Visit: yes Reason for Continuing Indwelling Catheter: Accurate Measurement of Urinary Output in Critically Ill Patients Urinary Catheter Date of Insertion: 07/30/21 Urinary Catheter Time of Insertion: 22:41 Data : 08/01/21 06:33 08/01/21 06:33 A&P Additional A&P Information 1. Renal failure working dx is pre-sagar azotemia -cr is improving, saturating well on room air, k is 4.6- hold on dialysis -baselibe cr is 1.2- 1.4- s/p nephrectomy Avoid usual nephrotoxic agents Dose medications for GFR less than 50 u/a 1+ ketones , 5-10 wbc, oval fat bodies -low ur na of 28 noted -ct scan- left nephrectomy -fleets enema can cause CARLITO -monitor uop and chemistries 2. Confusion unlikely uremia w/ cr of 2.6 mg/dl 3. ct scan-Subcutaneous air along the left anterior abdominal wall with fat stranding and trace fluid as well as trace air in the left inguinal canal likely relating to recent surgical procedure. 4. normal hgb 5. uric acid of 13.8- can be dry 6. DM- hold metformin meds reviewed discussed w/ RN Patient seen and examined via telemedicine, with the assistance of the bedside RN > 25 min spent in evaluation and mgmt of patient Attestations Medical Necessity Statement*: carlito, per critical care Time Spent in Patient Care: 16 - 35 minutes Coding Level of Care Code Acute Sponge Press Operator for Rosemarie Monreal
[2021-08-01 08:09] LABS: Glucose Point of Care 49 mg/dL (70-110)
[2021-08-01] MEDS: sennosides-docusate Tablet 1 TAB PO (08:49)
[2021-08-01] MEDS: lactated ringers 1,000 ML 100 ML IV ×2 (08:49→17:39)
--- NOTE | 2021-08-01 10:03 | PC.CHAP ---
Pastoral Care Encounter/Spiritual Assessment Type of Contact [] Declined leathersmith visit [] Patient/Family/Request visit [] Outpatient visit [] Follow-up visit [] Physician referral [] Code/Alert [x] Routine visit [] Staff referral [] Actively dying [] Patient sleeping [] Family support [] [] Out of room [] Palliative care [] [] Receiving care in room [] Pre-surgical visit [] Trauma [] Long length of stay [x] ICU visit [] Other: Relational/Emotional Strength [] Patient feels connected with others/family/visitors/staff [] Distress [] Loneliness/isolation [] Abandonment Spirituality of Patient [] Person of Rosa [] Attends Denominational of their Rosa [] Believes in Prayer [] Reads Bible or Baptism materials [] There are Spiritual issues to be addressed Mental Health Worker Interventions [x] Prayer [x] Active listening [x] Non-anxious presence [x] Spiritual/emotional support [] Crisis/trauma care [] Spiritual counseling [] Bereavement support [] Provided bereavement packet [] Provided Bible/devotional materials [] Provided toy/stuffed animal, coloring book to patient or family member [] Provided Communion [] Anointing/[place] [] Salvation [x] Completed spiritual assessment [] Other: Impact on Illness or Injury [] Angry [] Fearful [] Anxious [] Often cries [] Exhaustion [] Unable to work [] Unable to attend spiritism [] Unable to walk/stand [] Unable to read [] Unable to drive [] Unable to eat/drink [] Unable to sleep [] Unable to be with family [] Patient intubated [] Other: Summary patient not in right mind, but willing to listen and respond to prayer.. Time spent with patient 5 min
[2021-08-01 15:00] LABS: Basophils # 0.1 10^3/uL (0.0-0.1); Basophils % 0.9 %; Eosinophils # 0.3 10^3/uL (0.0-0.8); Eosinophils % 3.4 %; Hematocrit 39.7 % (42.0-52.0); Hemoglobin 12.3 g/dL (11.7-16.6); Lymphocytes # 1.4 10^3/uL (0.8-4.8); Lymphocytes % 16.2 %; Mean Corpuscular Hemoglobin 28.4 pg (28.0-34.0); Mean Corpuscular Volume 91.7 fl (80-94); Mean Platelet Volume 11.9 fL (7.4-10.4); Monocytes # 0.7 10^3/uL (0.2-0.9); Monocytes % 7.7 %; Neutrophils # 6.11 10^3/uL (1.8-7.7); Neutrophils % 71.2 %; Nucleated Red Blood Cells % 0 %; Platelet Count 209 10^3/cmm (130-400); Red Blood Count 4.33 10^6/uL (4.1-5.3); Red Cell Distribution Width 16.1 % (12.1-15.1); White Blood Count 8.6 10^3/uL (4.0-10.0)
[2021-08-01 17:36] LABS: Anion Gap 18.5 (5-19); Blood Urea Nitrogen 53 mg/dL (8-23); Calcium 9.6 mg/dL (8.5-10.5); Carbon Dioxide 22 mmol/L (22-29); Chloride 109 mmol/L (98-107); Glucose 165 mg/dL (65-115); Osmolality Calculated 318 mOsm/kg (285-295); Potassium 4.5 mmol/L (3.5-5.1); Sodium 145 mmol/L (136-145)
[2021-08-01 19:00] LABS: Add Urine Culture? No; Bacteria Urine 2+ /hpf; Bilirubin Urine Neg (Negative); Blood Urine 3+ (Negative); Glucose Urine UA Norm (Normal); Ketones Urine 1+ (Negative); Leukocyte Esterase Urine 2+ (Negative); Nitrate Urine Negative (Negative); Protein Urine 2+ (Negative); RBC Urine TOO NUMEROUS TO CNT /hpf (0-2); Specific Gravity, Urine 1.015 (1.005-1.030); Squamous Epithelial Cell Urine 0-4 /hpf (0-5); Urine Appearance Cloudy (CLEAR); Urine Color Yellow (Yellow); Urobilinogen Urine Norm (Negative); WBC Urine TOO NUMEROUS TO CNT /hpf (0-5); pH Urine 5 (5-7)
--- NOTE | 2021-08-01 20:49 | PM.PN ---
Subjective Subjective: Interval history: Confused. Denies pain. Vitals/I&O/Wt Last Vital Signs Temp 97.9 F 08/01/21 17:00 Pulse 91 08/01/21 20:00 Resp 18 08/01/21 20:00 BP 181/141 08/01/21 20:00 Pulse Ox 98 08/01/21 20:00 08/01/21 08/01/21 08/01/21 06:59 14:59 22:59 Intake Total 2049 / 2161 833.333 / 833.333 883.333 / 1716.666 Output Total 525 / 925 400 / 400 Balance 1525 / 1236 833.333 / 833.333 483.333 / 1316.666 Weight last 48 hrs Weight 101.469 kg Physical Exam Const: COMMON NORMALS: no acute distress GENERAL APPEARANCE: cooperative and comfortable NUTRITIONAL APPEARANCE: obese ORIENTATION/CONSCIOUSNESS: Yes awake and Yes confused HENMT: COMMON NORMALS: oropharynx normal Neck/C-Spine: COMMON NORMALS: no JVD Resp: COMMON NORMALS: normal respiratory effort and clear to auscultation bilaterally AUSCULTATION: clear to auscultation bilaterally Cardio: COMMON NORMALS: no JVD, regular rhythm, S1 normal heart sound present, S2 normal heart sound present and No murmurs present (Cardio) RHYTHM: regular rhythm HEART SOUNDS: S1 normal heart sound present and S2 normal heart sound present GI: COMMON NORMALS: Normal to inspection, nondistended, normoactive bowel sounds present, Soft to palpation and non-tender PALPATION: Yes Soft to palpation Extremity: COMMON NORMALS: no joint enlargement and no pedal edema Neuro: COMMON NORMALS: moves all extremities Skin: COMMON NORMALS: no rashes or lesions noted GENERAL SKIN EXAM: no rashes or lesions noted Urinary Catheter Management^: Medeiros Latex: Cath Placed During This Visit: yes Reason for Continuing Indwelling Catheter: Accurate Measurement of Urinary Output in Critically Ill Patients Urinary Catheter Date of Insertion: 07/30/21 Urinary Catheter Time of Insertion: 22:41 Data : 08/01/21 14:46 08/01/21 16:55 A&P Assessment and plan (1) Acute kidney injury: Improving. Had been receiving IV fluid challenge. No improvement. Plan for hemodialysis. Dialysis catheter malfunction, to be replaced. Discussed with Dr. Bellamy. Appreciate assistance and replacement. With possible uremia, persistent confusion. Medeiros catheter for accurate I&O. Status: Acute (2) Altered mental status: Persistent acute encephalopathy. Possibly secondary to uremia. Renal function gradually improving. Still confused. Needs close observation, at risk of pulling out his IV, Medeiros catheter or otherwise injure himself accidentally in the confused state. At the moment no sitter available. Monitor for fever or other signs of sepsis, no abdominal pain or discomfort in light of recent nephrectomy. Discharge after nephrectomy was on 07/04. Empirically started on Zosyn. Abdomen benign. Does not appear septic at the moment. Status: Acute (3) Acute uremia: Status: Acute (4) Hyperkalemia: Status: Acute (5) Metabolic encephalopathy: Status: Acute Additional A&P Information UTI: Started on Zosyn. Follow-up urine culture. Recent nephrectomy at [facility] in [place]. Medical records have been obtained. Attestations Medical Necessity Statement*: Continue admission for assessment management of UTI following recent nephrectomy, acute kidney injury, acute encephalopathy. Coding Level of Care Code Acute Side Splitter for [facility] Diagnoses Acute kidney injury N17.9 Altered mental status R41.82 Acute uremia N19 Hyperkalemia E87.5 Metabolic encephalopathy G93.41
[2021-08-02] VITALS (51 sets, daily range): BP systolic 108–166; BP diastolic 67–134; PULSE 63–174; RESP 12–21; TEMP 36.6; O2SAT 90–100
--- NOTE | 2021-08-02 | CTR_ITS ---
PROCEDURE INFORMATION: Exam: CT Head Without Contrast Exam date and time: 08/02/2021 9:24 AM Age: 75 years old Clinical indication: Other: Dilated pupil (right side); Additional info: Confusion, AMS, pupil dialation TECHNIQUE: Imaging protocol: Computed tomography of the head without contrast. Radiation optimization: All CT scans at this facility use at least one of these dose optimization techniques: automated exposure control; mA and/or kV adjustment per patient size (includes targeted exams where dose is matched to clinical indication); or iterative reconstruction. COMPARISON: CT head wo con* [id number] 07/30/2021 5:07 PM RADIATION DOSE METRICS: Total DLP (mGy-cm): 3731.12 FINDINGS: Brain: No intracranial hemorrhage, edema or other acute abnormalities are seen in the brain. There is generalized chronic atrophy with prominence of the ventricles and sulci. There is decreased white matter density which indicates chronic small vessel white matter ischemia. Cerebral ventricles: The ventricles are prominent due to chronic atrophy. Paranasal sinuses: Visualized sinuses are unremarkable. No fluid levels. Mastoid air cells: Visualized mastoid air cells are well aerated. Bones/joints: Unremarkable. No acute fracture. Soft tissues: Unremarkable. CT/CT head wo con* [id number] IMPRESSION: 1. No acute intracranial abnormality. 2. Chronic atrophy with chronic white matter ischemic changes. Radiation Dose CTDIVOL = (mGy): DLP = 3731.12 (mGy-cm)
[2021-08-02] MEDS: lactated ringers 1,000 ML 100 ML IV ×2 (03:31→22:08)
[2021-08-02 04:19] LABS: Basophils # 0.1 10^3/uL (0.0-0.1); Basophils % 0.9 %; Eosinophils # 0.4 10^3/uL (0.0-0.8); Eosinophils % 4.6 %; Hematocrit 41.2 % (42.0-52.0); Hemoglobin 13.4 g/dL (11.7-16.6); Lymphocytes # 1.7 10^3/uL (0.8-4.8); Lymphocytes % 18.8 %; Mean Corpuscular HGB Conc 32.5 g/dL (30.0-36.0); Mean Corpuscular Volume 89.2 fl (80-94); Mean Platelet Volume 12.9 fL (7.4-10.4); Monocytes # 0.8 10^3/uL (0.2-0.9); Monocytes % 8.7 %; Neutrophils # 5.92 10^3/uL (1.8-7.7); Neutrophils % 66.6 %; Nucleated Red Blood Cells % 0 %; Platelet Count 188 10^3/cmm (130-400); Red Blood Count 4.62 10^6/uL (4.1-5.3); Red Cell Distribution Width 16.4 % (12.1-15.1); White Blood Count 8.9 10^3/uL (4.0-10.0)
[2021-08-02 05:19] LABS: Slide Review Slide Review Perform
[2021-08-02] MEDS: piperacillin-tazobactam 3.375 GM in sodium chloride 0.9% (plus) 50 ML IV ×3 (05:40→21:01)
--- NOTE | 2021-08-02 07:18 | P.PN_ITS ---
Subjective Subjective: Interval history: sleepy, confused. no sob Medications: Reviewed: Yes Medication Review Details: Current Medications Albuterol/Ipratropium (Ipratropium-Albuterol 3 Ml Neb) 3 ml INHALATION Q6H PRN PRN Reason: SHORTNESS OF BREATH Alteplase, Recombinant (Alteplase 1 Mg/Ml Sdv 2 Ml) 2 mg INTRACATH ONCE PRN PRN Reason: For clotted access Last Admin: 07/31/21 12:59 Dose: 2 mg Documented by: Piperacillin Sod/Tazobactam (Sod 3.375 gm/ Sodium Chloride) 50 mls @ 12.5 mls/hr IV Q12H TOMMY; Protocol Last Admin: 08/02/21 05:40 Dose: 12.5 mls/hr Documented by: Lactated Ringer's (Lactated Ringers) 1,000 mls @ 100 mls/hr IV .Q10H TOMMY Last Admin: 08/02/21 03:31 Dose: 100 mls/hr Documented by: Metoprolol Tartrate (Metoprolol Tartrate 1 Mg/1 Ml Sdv 5 Ml) 2.5 mg IVP Q6H PRN PRN Reason: HEART RATE-HIGH Nystatin (Nystatin Powder 15 Gm Btl) 1 applic TOPICAL BID PRN PRN Reason: SKIN IRRITATION Last Admin: 08/01/21 05:56 Dose: 1 applic Documented by: Ondansetron HCl (Ondansetron 2 Mg/Ml Sdv 2 Ml) 4 mg IVP Q6H PRN PRN Reason: NAUSEA AND VOMITING Senna/Docusate Sodium (Sennosides-Docusate Tablet) 1 tab PO DAILY TOMMY Last Admin: 08/01/21 08:49 Dose: 1 tab Documented by: Tramadol HCl (Tramadol 50 Mg Tablet) 50 mg PO Q6H PRN PRN Reason: MODERATE PAIN Last Admin: 08/01/21 05:58 Dose: 50 mg Documented by: Vitals/I&O/Wt Last Vital Signs Temp 97.9 F 08/01/21 17:00 Pulse 110 H 08/02/21 06:30 Resp 19 H 08/02/21 06:30 BP 149/121 08/02/21 06:00 Pulse Ox 98 08/02/21 06:30 08/01/21 08/02/21 08/02/21 22:59 06:59 14:59 Intake Total 933.333 / 1766.666 986.667 / 2753.333 Output Total 400 / 400 400 / 800 Balance 533.333 / 1366.666 586.667 / 1953.333 Weight last 48 hrs Weight 102.512 kg Weight 101.469 kg Physical Exam Narrative: EXAM NARRATIVE: elderly in bed, NARD, lethargic vs noted- tachycardic heent- nc/at, eomi, anicteric neck supple, b/l ij dialysis catheters lungs clear b/l heart- reg,tachycardic. s1, s2 abd soft, nt, nd ext no edema neuro- confused, weak Urinary Catheter Management^: Medeiros Latex: Cath Placed During This Visit: yes Reason for Continuing Indwelling Catheter: Accurate Measurement of Urinary Output in Critically Ill Patients Urinary Catheter Date of Insertion: 07/30/21 Urinary Catheter Time of Insertion: 22:41 Data : 08/02/21 03:39 08/01/21 16:55 A&P Additional A&P Information 1. Renal failure working dx is pre-sagar azotemia -cr is improving, saturating well on room air, k is 4.5 -baseline cr is 1.2- 1.4- s/p nephrectomy on 07-04-21 Avoid usual nephrotoxic agents Dose medications for GFR less than 50 u/a 1+ ketones , 5-10 wbc, oval fat bodies -low ur na of 28 noted -ct scan- left nephrectomy -fleets enema can cause CARLITO -monitor uop and chemistries 2. Confusion unlikely uremia w/ cr of 2.4 mg/dl 3. ct scan-Subcutaneous air along the left anterior abdominal wall with fat stranding and trace fluid as well as trace air in the left inguinal canal likely relating to recent surgical procedure. 4. normal hgb 5. uric acid of 13.8- can be dry 6. DM- hold metformin meds reviewed discussed w/ RN Patient seen and examined via telemedicine, with the assistance of the bedside RN > 25 min spent in evaluation and mgmt of patient Attestations Medical Necessity Statement*: ams, carlito Time Spent in Patient Care: 16 - 35 minutes (>than 50% of time spent in counselling and/or direct pt care on unit) . Coding Level of Care Code Acute Art Gallery Internship for [facility] Mon[facility]
--- NOTE | 2021-08-02 08:23 | CTR_ITS ---
PROCEDURE INFORMATION: Exam: CT Abdomen And Pelvis Without Contrast Exam date and time: 08/02/2021 8:23 AM Age: 75 years old Clinical indication: Abdominal pain; Tenderness; Other: All over; Additional info: Abdo tenderness TECHNIQUE: Imaging protocol: Computed tomography of the abdomen and pelvis without contrast. Radiation optimization: All CT scans at this facility use at least one of these dose optimization techniques: automated exposure control; mA and/or kV adjustment per patient size (includes targeted exams where dose is matched to clinical indication); or iterative reconstruction. COMPARISON: CT abdomen pelvis con [id number] 07/30/2021 8:19 PM RADIATION DOSE METRICS: Total DLP (mGy-cm): 1421.64 FINDINGS: Lungs: There is mild atelectasis in the lung bases. Heart: The heart is not enlarged. There is coronary artery calcification. Liver: Normal. No mass. Gallbladder and bile ducts: Normal. No calcified stones. No ductal dilation. Pancreas: The pancreas is atrophic. No pancreatic mass or ductal dilatation is seen. Spleen: Small benign calcified granulomas are present in the spleen. Adrenal glands: Normal. No mass. Kidneys and ureters: Left nephrectomy. Stable cysts are present in the right kidney. There is no hydronephrosis or renal calculus. Stomach and bowel: Unremarkable. No obstruction. No mucosal thickening. Appendix: No evidence of appendicitis. Intraperitoneal space: Unremarkable. No free air. No significant fluid collection. Vasculature: There is atherosclerotic calcification of the aorta but there is no evidence of aneurysm. Lymph nodes: Unremarkable. No enlarged lymph nodes. Urinary bladder: A Medeiros catheter is present in the urinary bladder. Reproductive: Unremarkable as visualized. Bones/joints: Unremarkable. No acute fracture. Soft tissues: Again noted is subcutaneous emphysema in the left anterior abdominal wall. Small amount of air is seen in the left inguinal canal close to the scrotum. There are infiltrative changes with fat stranding in the left inguinal canal which is similar to the previous examination. No discrete fluid-filled abscess cavities are seen. CT/CT abdomen pelvis con [id number] IMPRESSION: 1. Status post left nephrectomy. 2. No acute abnormalities are seen within the abdomen and pelvis. 3. There is stable appearance of subcutaneous emphysema in the left anterior abdominal wall with fatty stranding and minimal fluid in the left inguinal canal. This is probably related to recent surgery. Radiation Dose CTDIVOL = (mGy): DLP = 1421.64 (mGy-cm)
--- NOTE | 2021-08-02 08:24 | PM.PN ---
Subjective Subjective: Interval history: He is awake, contracted for, possibly however been. Does not remember where he is. Still trails off and at times answers are incoherent. Names the year is 2021. States he could eat something and will be. Abdomen tender. Says he had just had something removed. Initially does not agree that it was a kidney. Later on states kidney! Vitals/I&O/Wt Last Vital Signs Temp 97.9 F 08/01/21 17:00 Pulse 110 H 08/02/21 06:30 Resp 19 H 08/02/21 06:30 BP 149/121 08/02/21 06:00 Pulse Ox 98 08/02/21 06:30 08/01/21 08/02/21 08/02/21 22:59 06:59 14:59 Intake Total 933.333 / 1766.666 986.667 / 2753.333 Output Total 400 / 400 400 / 800 Balance 533.333 / 1366.666 586.667 / 1953.333 Weight last 48 hrs Weight 102.512 kg Weight 101.469 kg Physical Exam Const: COMMON NORMALS: no acute distress GENERAL APPEARANCE: cooperative and comfortable NUTRITIONAL APPEARANCE: obese ORIENTATION/CONSCIOUSNESS: Yes awake and Yes confused HENMT: COMMON NORMALS: oropharynx normal Neck/C-Spine: COMMON NORMALS: no JVD Resp: COMMON NORMALS: normal respiratory effort and clear to auscultation bilaterally AUSCULTATION: clear to auscultation bilaterally Cardio: COMMON NORMALS: no JVD, regular rhythm, S1 normal heart sound present, S2 normal heart sound present and No murmurs present (Cardio) RHYTHM: regular rhythm HEART SOUNDS: S1 normal heart sound present and S2 normal heart sound present GI: COMMON NORMALS: Normal to inspection, nondistended, normoactive bowel sounds present, Soft to palpation and non-tender PALPATION: Yes Soft to palpation and Yes Tenderness to palpation present (GI) Extremity: COMMON NORMALS: no joint enlargement and no pedal edema Neuro: COMMON NORMALS: moves all extremities Skin: COMMON NORMALS: no rashes or lesions noted GENERAL SKIN EXAM: no rashes or lesions noted Urinary Catheter Management^: Medeiros Latex: Cath Placed During This Visit: yes Reason for Continuing Indwelling Catheter: Accurate Measurement of Urinary Output in Critically Ill Patients Urinary Catheter Date of Insertion: 07/30/21 Urinary Catheter Time of Insertion: 22:41 Data : 08/02/21 03:39 08/01/21 16:55 A&P Assessment and plan (1) Acute kidney injury: Improving. This morning's labs are pending. Producing urine. IV fluid. At this time uremia not likely to be contributing to confusion any longer, however, confusion appears to be also clearing up. He is able to give me more information today. Medeiros catheter for accurate I&O. Status: Acute (2) Altered mental status: Confusion appears to be clearing up. He is doing better today. More interactive. Does take several prompts to tell me his name. States the year is 2021. Remembers that he had had something operatively removed recently. Concern is for ongoing encephalopathy related to infection. Renal function gradually improving. Needs close observation, at risk of pulling out his IV, Medeiros catheter or otherwise injure himself accidentally in the confused state. Could go to medical floor with one-to-one observation. Status: Acute (3) Abdominal tenderness: Today his abdomen is mildly to moderately tender. We will repeat CT abdomen pelvis. Continue empirically Zosyn. Follow-up urine cultures. Request blood cultures. Sinus tachycardia, although otherwise afebrile, no leukocytosis. Status: Acute (4) Acute uremia: Should be resolved Status: Acute (5) Hyperkalemia: Improved Status: Acute (6) Metabolic encephalopathy: As above. Status: Acute Additional A&P Information UTI: Zosyn. Follow-up urine culture. Recent nephrectomy at [facility] in [place]. Medical records have been obtained. Looks like was discharged from there 07/04. Attestations Medical Necessity Statement*: Continue admission for assessment of management of acute encephalopathy, additional investigation of infection, UTI, possible intra-abdominal infection. Coding Level of Care Code Acute Eyelet Machine Operator for [facility] Diagnoses Acute kidney injury N17.9 Altered mental status R41.82 Abdominal tenderness R10.819 Acute uremia N19 Hyperkalemia E87.5 Metabolic encephalopathy G93.41
[2021-08-02 09:22] LABS: Alanine Aminotransferase 6 U/L (0-41); Albumin Level 3.4 g/dL (3.5-5.2); Alkaline Phosphatase 101 IU/L (40-130); Anion Gap 17.4 (5-19); Aspartate Amino Transferase 8 U/L (0-40); Blood Urea Nitrogen 46 mg/dL (8-23); Calcium 8.8 mg/dL (8.5-10.5); Carbon Dioxide 21 mmol/L (22-29); Chloride 112 mmol/L (98-107); Globulin 2.7 g/dL (1.3-4.6); Glucose 132 mg/dL (65-115); Magnesium 1.8 mg/dL (1.7-2.3); Osmolality Calculated 316 mOsm/kg (285-295); Phosphorus 2.2 mg/dL (2.5-4.5); Potassium 4.4 mmol/L (3.5-5.1); Sodium 146 mmol/L (136-145); Total Bilirubin 0.6 mg/dL (0.15-1.2); Total Protein 6.1 g/dL (6.6-8.7); Uric Acid 9.8 mg/dL (3.4-7.0)
--- NOTE | 2021-08-02 13:14 | PC.SOCIAL ---
Pg 2 IMM Explained to pt's sister Pg 2 IMM. No questions voiced. Provided pt a copy. Initialed, dated, & timed a copy & placed in chart.
--- NOTE | 2021-08-02 18:41 | PC.NURSE ---
Patient continues to be A&O to self only. Has been resting in bed all shift and is not cooperative with cares. Oral care has been attempted to be done and patient shakes head back and forth. Will attempt again
[2021-08-03] VITALS (49 sets, daily range): BP systolic 113–160; BP diastolic 59–112; PULSE 60–93; RESP 12–30; TEMP 36.5–37.1; O2SAT 88–100
[2021-08-03] MEDS: piperacillin-tazobactam 3.375 GM in sodium chloride 0.9% (plus) 50 ML IV ×3 (05:19→21:01)
--- NOTE | 2021-08-03 05:47 | PM.PN ---
Subjective Subjective: Interval history: no complaints Medications: Reviewed: Yes Vitals/I&O/Wt Last Vital Signs Temp 97.8 F 08/02/21 07:30 Pulse 66 08/03/21 05:30 Resp 22 H 08/03/21 05:00 BP 132/90 08/03/21 05:00 Pulse Ox 98 08/03/21 05:00 08/02/21 08/02/21 08/03/21 14:59 22:59 06:59 Intake Total 1000 / 1000 50 / 1050 50 / 1100 Output Total 700 / 700 Balance 1000 / 1000 50 / 1050 -650 / 400 Weight last 48 hrs Weight 104.326 kg Weight 102.512 kg Weight 101.469 kg Physical Exam Const: COMMON NORMALS: no acute distress Neck/C-Spine: OTHER: bilateral IJ HD catheters Extremity: GENERAL: Yes edema (trace bilateral) Urinary Catheter Management^: Medeiros Latex: Cath Placed During This Visit: yes Reason for Continuing Indwelling Catheter: Accurate Measurement of Urinary Output in Critically Ill Patients Urinary Catheter Date of Insertion: 07/30/21 Urinary Catheter Time of Insertion: 22:41 Data : 08/03/21 06:08 08/03/21 06:08 Micro: Microbiology 07/31/21 02:12 Urine Culture - Preliminary Urine Ureter 08/02/21 11:12 Blood Culture - Preliminary Blood SPECIMEN COLLECTED 08/02/21 11:12 Blood Culture - Preliminary Blood SPECIMEN COLLECTED A&P Additional A&P Information Patient seen and examined via telemedicine, with the assistance of the bedside RN 1. Acute kidney injury, improved, good urine output. No indication for further HD 2. s/p nephrectomy 07/04/21 3. UTI 4. Hypernatremia 5. Hypophosphatemia REcommend: discontinue HD catheters. Encourage water intake, Replace Kphos orally Attestations Medical Necessity Statement*: per primary service Time Spent in Patient Care: 16 - 35 minutes Coding Level of Care Code Acute Hourly Shift Manager for [facility]mar[facility] Mon[facility]
[2021-08-03 06:33] LABS: Basophils # 0.1 10^3/uL (0.0-0.1); Basophils % 0.9 %; Eosinophils # 0.6 10^3/uL (0.0-0.8); Eosinophils % 6.2 %; Hematocrit 39.7 % (42.0-52.0); Hemoglobin 12.1 g/dL (11.7-16.6); Lymphocytes # 1.6 10^3/uL (0.8-4.8); Lymphocytes % 17.5 %; Mean Corpuscular HGB Conc 30.5 g/dL (30.0-36.0); Mean Corpuscular Hemoglobin 28.5 pg (28.0-34.0); Mean Corpuscular Volume 93.6 fl (80-94); Monocytes # 0.6 10^3/uL (0.2-0.9); Monocytes % 6.9 %; Neutrophils # 6.14 10^3/uL (1.8-7.7); Neutrophils % 67.9 %; Nucleated Red Blood Cells % 0 %; Platelet Count 209 10^3/cmm (130-400); Red Blood Count 4.24 10^6/uL (4.1-5.3); Red Cell Distribution Width 16.4 % (12.1-15.1)
[2021-08-03 06:49] LABS: Alanine Aminotransferase 7 U/L (0-41); Albumin Level 3.3 g/dL (3.5-5.2); Alkaline Phosphatase 105 IU/L (40-130); Aspartate Amino Transferase 10 U/L (0-40); Blood Urea Nitrogen 38 mg/dL (8-23); Calcium 8.8 mg/dL (8.5-10.5); Carbon Dioxide 18 mmol/L (22-29); Chloride 115 mmol/L (98-107); Globulin 2.9 g/dL (1.3-4.6); Glucose 126 mg/dL (65-115); Magnesium 1.7 mg/dL (1.7-2.3); Osmolality Calculated 317 mOsm/kg (285-295); Phosphorus 2.4 mg/dL (2.5-4.5); Sodium 148 mmol/L (136-145); Total Bilirubin 0.5 mg/dL (0.15-1.2); Total Protein 6.2 g/dL (6.6-8.7)
[2021-08-03 06:50] LABS: Anion Gap 19.7 (5-19); Potassium 4.7 mmol/L (3.5-5.1)
[2021-08-03] MEDS: lactated ringers 1,000 ML 100 ML IV ×2 (09:25→18:33)
[2021-08-03] MEDS: sennosides-docusate Tablet 1 TAB PO (09:32)
--- NOTE | 2021-08-03 09:55 | PC.NURSE ---
longterm, leeper, called re:previous mental status changes and behavior. stated he had had a stent placed, went back to [facility] to have it removed and when he came back kisney had been removed and confusion had started, then became worse with some violent behavior toward staff. dentures are at the longterm. staff checked and said they were there.
--- NOTE | 2021-08-03 09:59 | PC.NURSE ---
0930: left non tunneling hemodialysis catheter removed from I.J. intact. pt. requested to rest for awhile before i pulled the other one.
--- NOTE | 2021-08-03 10:22 | PC.NURSE ---
resting quietly, appears to be sleeping.
--- NOTE | 2021-08-03 12:11 | PC.NURSE ---
awakened pt. to turn him. stated leave me alone , pulling at cover. will allow to rest.
--- NOTE | 2021-08-03 13:53 | PC.NURSE ---
awakened with verbal and tactile stimulation. dialysis catheter removed from right I.J. intact
--- NOTE | 2021-08-03 18:43 | PC.NURSE ---
becoming more resistant. taking heart monitor off says it bothers him, states he dont like it
--- NOTE | 2021-08-03 20:42 | P.PN_ITS ---
Subjective Subjective: Interval history: This morning he is doing all right. He is calm, interacting well. Denies any pain or discomfort. In the evening he is more confused, wiggling around in bed, pulling on things around him. Vitals/I&O/Wt Last Vital Signs Temp 98.7 F 08/03/21 18:00 Pulse 63 08/03/21 18:30 Resp 18 08/03/21 18:00 BP 151/91 08/03/21 18:30 Pulse Ox 100 08/03/21 18:00 08/03/21 08/03/21 08/03/21 06:59 14:59 22:59 Intake Total 50 / 1100 1140 / 1140 913.333 / 2053.333 Output Total 700 / 700 650 / 650 Balance -650 / 400 1140 / 1140 263.333 / 1403.333 Weight last 48 hrs Weight 104.326 kg Weight 102.512 kg Physical Exam Const: COMMON NORMALS: no acute distress GENERAL APPEARANCE: cooperative and comfortable NUTRITIONAL APPEARANCE: obese ORIENTATION/CONSCIOUSNESS: Yes awake and Yes confused HENMT: COMMON NORMALS: oropharynx normal Neck/C-Spine: COMMON NORMALS: no JVD Resp: COMMON NORMALS: normal respiratory effort and clear to auscultation bilaterally AUSCULTATION: clear to auscultation bilaterally Cardio: COMMON NORMALS: no JVD, regular rhythm, S1 normal heart sound present, S2 normal heart sound present and No murmurs present (Cardio) RHYTHM: regular rhythm HEART SOUNDS: S1 normal heart sound present and S2 normal heart sound present GI: COMMON NORMALS: Normal to inspection, nondistended, normoactive bowel sounds present, Soft to palpation and non-tender PALPATION: Yes Soft to palpation OTHER: Well healing laparoscopy wounds LL abdomen Extremity: COMMON NORMALS: no joint enlargement and no pedal edema Neuro: COMMON NORMALS: moves all extremities Skin: COMMON NORMALS: no rashes or lesions noted GENERAL SKIN EXAM: no rashes or lesions noted Urinary Catheter Management^: Medeiros Latex: Cath Placed During This Visit: yes Reason for Continuing Indwelling Catheter: Accurate Measurement of Urinary Output in Critically Ill Patients Urinary Catheter Date of Insertion: 07/30/21 Urinary Catheter Time of Insertion: 22:41 Data : 08/03/21 06:08 08/03/21 06:08 Micro: Microbiology 08/02/21 11:12 Blood Culture - Preliminary Blood NEGATIVE TO DATE 08/02/21 11:12 Blood Culture - Preliminary Blood NEGATIVE TO DATE 07/31/21 02:12 Urine Culture - Final Urine Ureter 08/01/21 18:19 Urine Culture - Preliminary Urine Catheterized A&P Assessment and plan (1) Altered mental status: Acute metabolic encephalopathy. With acute kidney injury. Initially possible component of uremia, but this should be resolving. Not entirely clear cause of his ongoing encephalopathy. Appears confusion has been present since returning from the hospital after his nephrectomy. This would make it a protracted delirium. Unclear whether he had possibly some mild underlying cognitive dysfunction prior to that hospitalization making him at risk for the protracted delirium. Infection was another possibility with some persistent sinus tachycardia on presentation, although has been afebrile. Initial leukocytosis present, so far resolved. Subcutaneous emphysema noted in the left lower abdomen. Superficially wounds appear to be healing very well, no erythema, and no tenderness on examination. Possibly was developing some infection there, but likely responding well to antibiotic. Would continue with antibiotic at this time. Arrange follow-up after discharge. He is doing worse this evening, and appears to have some component of sundowning. Remove dialysis access. If condition continues to improve, we will try to de-escalate treatments, switch to oral medications, remove catheter, IV. Renal function gradually improving. Needs close observation, at risk of pulling out his IV, Medeiros catheter or otherwise injure himself accidentally in the confused state. Could go to medical floor with one-to-one observation. Status: Acute (2) Acute kidney injury: Improving. Producing urine. Continue IVF for now as he is not eating very well. Mederios catheter for accurate I&O. Status: Acute (3) Abdominal tenderness: CT abdomen pelvis as above with noted left lower abdominal subcutaneous emphysema. No fluid collection to suggest abscess. Tracking through abdominal wall, unclear whether he had a had a drain after surgery. Externally no erythema, wounds healing well. This morning denies any discomfort on palpation. Continue empirically Zosyn. Follow-up urine cultures. Request blood cultures. Sinus tachycardia, leukocytosis resolved. Arrange follow-up after discharge. Status: Acute (4) Acute uremia: Should be resolved Status: Acute (5) Hyperkalemia: Improved Status: Acute (6) Metabolic encephalopathy: As above. Status: Acute Additional A&P Information UTI: Zosyn. Urine culture with mixed superficial kyle from 07/31, repeat culture 08/01 no growth after 1 day, preliminary. Follow-up final cultures. Recent nephrectomy at [facility] in [place]. Medical records have been obtained. Looks like was discharged from there 07/04. 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 Coding Level of Care Code Acute Community Assistant for g Fwd Diagnoses Altered mental status R41.82 Acute kidney injury N17.9 Abdominal tenderness R10.819 Acute uremia N19 Hyperkalemia E87.5 Metabolic encephalopathy G93.41
--- NOTE | 2021-08-03 20:47 | PC.NURSE ---
patient refusing to keep telemetry leads on, Dr. Palmer at bedside at beginning of shift, gave v.o. for 1 mg Haldol IM if atient becomes combative
[2021-08-04] VITALS (35 sets, daily range): BP systolic 118–168; BP diastolic 59–111; PULSE 59–97; RESP 12–29; TEMP 36.2–36.6; O2SAT 90–100
[2021-08-04] MEDS: piperacillin-tazobactam 3.375 GM in sodium chloride 0.9% (plus) 50 ML IV ×3 (05:10→22:47)
[2021-08-04] MEDS: lactated ringers 1,000 ML 100 ML IV (05:11)
[2021-08-04 06:15] LABS: Basophils # 0.1 10^3/uL (0.0-0.1); Basophils % 0.8 %; Eosinophils # 0.5 10^3/uL (0.0-0.8); Eosinophils % 6.6 %; Hematocrit 39.7 % (42.0-52.0); Hemoglobin 11.9 g/dL (11.7-16.6); Lymphocytes # 1.4 10^3/uL (0.8-4.8); Lymphocytes % 17.4 %; Mean Corpuscular Volume 93.4 fl (80-94); Mean Platelet Volume 11.9 fL (7.4-10.4); Monocytes # 0.5 10^3/uL (0.2-0.9); Monocytes % 6.8 %; Nucleated Red Blood Cells % 0 %; Platelet Count 187 10^3/cmm (130-400); Red Blood Count 4.25 10^6/uL (4.1-5.3); Red Cell Distribution Width 16.3 % (12.1-15.1); White Blood Count 7.9 10^3/uL (4.0-10.0)
[2021-08-04 06:30] LABS: Alanine Aminotransferase 7 U/L (0-41); Alkaline Phosphatase 104 IU/L (40-130); Aspartate Amino Transferase 12 U/L (0-40); Blood Urea Nitrogen 27 mg/dL (8-23); Carbon Dioxide 19 mmol/L (22-29); Chloride 116 mmol/L (98-107); Globulin 2.9 g/dL (1.3-4.6); Glucose 110 mg/dL (65-115); Osmolality Calculated 316 mOsm/kg (285-295); Phosphorus 2.2 mg/dL (2.5-4.5); Sodium 150 mmol/L (136-145); Total Bilirubin 0.6 mg/dL (0.15-1.2); Total Protein 5.9 g/dL (6.6-8.7)
--- NOTE | 2021-08-04 06:37 | PC.NURSE ---
uneventful night, patient LOC improved overnight, cooperative with care through majority of shift, AO to self and being in [place], supine 30 degrees call light within reach
[2021-08-04 07:38] LABS: Anion Gap 19.3 (5-19); Potassium 4.3 mmol/L (3.5-5.1)
--- NOTE | 2021-08-04 07:56 | P.PN_ITS ---
Subjective Subjective: Interval history: anxious for transfer back to [facility]. not taking adequate fluid or nutrition orally Medications: Reviewed: Yes Vitals/I&O/Wt Last Vital Signs Temp 98.7 F 08/03/21 18:00 Pulse 70 08/04/21 06:30 Resp 18 08/04/21 06:30 BP 136/94 08/04/21 06:30 Pulse Ox 98 08/04/21 06:30 08/03/21 08/04/21 08/04/21 22:59 06:59 14:59 Intake Total 963.333 / 2103.333 1050 / 3153.333 Output Total 650 / 650 600 / 1250 Balance 313.333 / 1453.333 450 / 1903.333 Weight last 48 hrs Weight 104.326 kg Weight 104.326 kg Physical Exam Const: COMMON NORMALS: no acute distress GENERAL APPEARANCE: cooperative Extremity: GENERAL: No edema Urinary Catheter Management^: Medeiros Latex: Cath Placed During This Visit: yes Reason for Continuing Indwelling Catheter: Accurate Measurement of Urinary Output in Critically Ill Patients Urinary Catheter Date of Insertion: 07/30/21 Urinary Catheter Time of Insertion: 22:41 Data : 08/04/21 04:38 08/04/21 04:38 Other Labs: Ca 9, phos 2.2, Albumin 3 Micro: Microbiology 08/02/21 11:12 Blood Culture - Preliminary Blood NEGATIVE TO DATE 08/02/21 11:12 Blood Culture - Preliminary Blood NEGATIVE TO DATE 07/31/21 02:12 Urine Culture - Final Urine Ureter 08/01/21 18:19 Urine Culture - Preliminary Urine Catheterized A&P Additional A&P Information Patient seen and examined via telemedicine, with the assistance of the bedside RN 1. Hypernatremia 2. Acute kidney injury, improved, good urine output. Dialysis catheters have been removed 3. s/p nephrectomy 07/04/21 4. UTI 5. Hypophosphatemia Recommend: IV D5W, oral phosphorus repletion. Attestations Medical Necessity Statement*: per primary service Time Spent in Patient Care: 16 - 35 minutes Coding Level of Care Code Acute Furniture Mover for Rosemarie Monreal
[2021-08-04] MEDS: dextrose 5% 1,000 ML 100 ML IV ×2 (09:01→20:29)
[2021-08-04] MEDS: phosphorus 250 mg Tablet PO ×2 (09:01→18:49)
[2021-08-04] MEDS: sennosides-docusate Tablet 1 TAB PO (09:01)
--- NOTE | 2021-08-04 09:22 | PC.NURSE ---
0700: recd, alert, and confused. asking about his sister and brother
--- NOTE | 2021-08-04 10:07 | PM.PN ---
Subjective Subjective: Interval history: Last night he was confused. This morning he appears calm, appropriate, states that he is at longterm. Denies any pain or discomfort. Only complaint is that he is not at home . Vitals/I&O/Wt Last Vital Signs Temp 98.7 F 08/03/21 18:00 Pulse 70 08/04/21 06:30 Resp 18 08/04/21 06:30 BP 136/94 08/04/21 06:30 Pulse Ox 98 08/04/21 06:30 08/03/21 08/04/21 08/04/21 22:59 06:59 14:59 Intake Total 963.333 / 2103.333 1050 / 3153.333 Output Total 650 / 650 600 / 1250 Balance 313.333 / 1453.333 450 / 1903.333 Weight last 48 hrs Weight 104.326 kg Weight 104.326 kg Physical Exam Const: COMMON NORMALS: no acute distress GENERAL APPEARANCE: cooperative and comfortable NUTRITIONAL APPEARANCE: obese ORIENTATION/CONSCIOUSNESS: Yes awake and Yes confused HENMT: COMMON NORMALS: oropharynx normal Neck/C-Spine: COMMON NORMALS: no JVD Resp: COMMON NORMALS: normal respiratory effort and clear to auscultation bilaterally AUSCULTATION: clear to auscultation bilaterally Cardio: COMMON NORMALS: no JVD, regular rhythm, S1 normal heart sound present, S2 normal heart sound present and No murmurs present (Cardio) RHYTHM: regular rhythm HEART SOUNDS: S1 normal heart sound present and S2 normal heart sound present GI: COMMON NORMALS: Normal to inspection, nondistended, normoactive bowel sounds present, Soft to palpation and non-tender PALPATION: Yes Soft to palpation OTHER: Well healing laparoscopy wounds LL abdomen Extremity: COMMON NORMALS: no joint enlargement and no pedal edema Neuro: COMMON NORMALS: moves all extremities Skin: COMMON NORMALS: no rashes or lesions noted GENERAL SKIN EXAM: no rashes or lesions noted Urinary Catheter Management^: Medeiros Latex: Cath Placed During This Visit: yes Reason for Continuing Indwelling Catheter: Accurate Measurement of Urinary Output in Critically Ill Patients Urinary Catheter Date of Insertion: 07/30/21 Urinary Catheter Time of Insertion: 22:41 Data : 08/04/21 04:38 08/04/21 04:38 Micro: Microbiology 08/01/21 18:19 Urine Culture - Final Urine Catheterized 08/02/21 11:12 Blood Culture - Preliminary Blood NEGATIVE TO DATE 08/02/21 11:12 Blood Culture - Preliminary Blood NEGATIVE TO DATE 07/31/21 02:12 Urine Culture - Final Urine Ureter A&P Assessment and plan (1) Altered mental status: He is calm and comfortable. Transfer to medical floor. Worsening hypernatremia today, started on D5W. Stop LR. No abdominal pain. No sign of sepsis. Continue empiric antibiotics. Once prior authorization complete, likely may be able to return to longterm to continue recovery. Acute metabolic encephalopathy. With acute kidney injury. Initially possible component of uremia, but this should be resolving. Not entirely clear cause of his ongoing encephalopathy. Appears confusion has been present since returning from the hospital after his nephrectomy. This would make it a protracted delirium. Unclear whether he had possibly some mild underlying cognitive dysfunction prior to that hospitalization making him at risk for the protracted delirium. Infection was another possibility with some persistent sinus tachycardia on presentation, although has been afebrile. Initial leukocytosis present, so far resolved. Subcutaneous emphysema noted in the left lower abdomen. Superficially wounds appear to be healing very well, no erythema, and no tenderness on examination. Possibly was developing some infection there, but likely responding well to antibiotic. Would continue with antibiotic at this time. Arrange follow-up after discharge. He is doing worse this evening, and appears to have some component of sundowning. Remove dialysis access. If condition continues to improve, we will try to de-escalate treatments, switch to oral medications, remove catheter, IV. Renal function gradually improving. Needs close observation, at risk of pulling out his IV, Medeiros catheter or otherwise injure himself accidentally in the confused state. Could go to medical floor with one-to-one observation. Status: Acute (2) Acute kidney injury: Improving. Producing urine. Continue IVF for now as he is not eating very well. Medeiros catheter for accurate I&O. Status: Acute (3) Abdominal tenderness: CT abdomen pelvis as above with noted left lower abdominal subcutaneous emphysema. No fluid collection to suggest abscess. Tracking through abdominal wall, unclear whether he had a had a drain after surgery. Externally no erythema, wounds healing well. This morning denies any discomfort on palpation. Continue empirically Zosyn. Follow-up urine cultures. Request blood cultures. Sinus tachycardia, leukocytosis resolved. Arrange follow-up after discharge. Status: Acute (4) Acute uremia: Should be resolved Status: Acute (5) Hyperkalemia: Improved Status: Acute (6) Metabolic encephalopathy: As above. Status: Acute Additional A&P Information UTI: Zosyn. Urine culture with mixed superficial kyle from 07/31, repeat culture 08/01 no growth. Recent nephrectomy at [facility] in [place]. Medical records have been obtained. Looks like was discharged from there 07/04. Attestations Medical Necessity Statement*: Continue admission for assessment of management of acute encephalopathy, possible early abdominal wall infection. Disposition planning and arrangements. Coding Level of Care Code Acute Microbiology Laboratory Manager for [facility] Fwd Diagnoses Altered mental status R41.82 Acute kidney injury N17.9 Abdominal tenderness R10.819 Acute uremia N19 Hyperkalemia E87.5 Metabolic encephalopathy G93.41
--- NOTE | 2021-08-04 10:25 | PC.SOCIAL ---
IMM Update pg 2 of IMM updated and reviewed w/ patient and patients Sister. Copy provided.
--- NOTE | 2021-08-04 15:21 | PC.NURSE ---
1515 transferred to 262 per w/c. sister called re:transfer.. states she doesnt understand why Nadir doest want to walk. in gettint pt. to w/c with p.t. assist, he wouldnt straighten up. then stated his back hurt.
--- NOTE | 2021-08-04 15:35 | PC.NURSE ---
to much artifact to do measuring.
[2021-08-05] VITALS (7 sets, daily range): BP systolic 127–150; BP diastolic 73–85; PULSE 70–104; RESP 16–18; TEMP 36.4–36.9; O2SAT 93–98
[2021-08-05] MEDS: piperacillin-tazobactam 3.375 GM in sodium chloride 0.9% (plus) 50 ML IV ×3 (05:56→21:28)
[2021-08-05] MEDS: dextrose 5% 1,000 ML 100 ML IV ×2 (05:57→14:22)
[2021-08-05 06:45] LABS: Basophils # 0.1 10^3/uL (0.0-0.1); Basophils % 0.6 %; Eosinophils # 0.6 10^3/uL (0.0-0.8); Eosinophils % 7.1 %; Hematocrit 38.4 % (42.0-52.0); Lymphocytes # 1.6 10^3/uL (0.8-4.8); Lymphocytes % 19.2 %; Mean Corpuscular HGB Conc 31.3 g/dL (30.0-36.0); Mean Corpuscular Hemoglobin 28.2 pg (28.0-34.0); Mean Corpuscular Volume 90.4 fl (80-94); Mean Platelet Volume 11.5 fL (7.4-10.4); Monocytes # 0.5 10^3/uL (0.2-0.9); Monocytes % 6.3 %; Neutrophils # 5.44 10^3/uL (1.8-7.7); Neutrophils % 66.4 %; Nucleated Red Blood Cells % 0 %; Platelet Count 174 10^3/cmm (130-400); Red Blood Count 4.25 10^6/uL (4.1-5.3); Red Cell Distribution Width 16.1 % (12.1-15.1); White Blood Count 8.2 10^3/uL (4.0-10.0)
[2021-08-05 07:22] LABS: Alanine Aminotransferase 12 U/L (0-41); Alkaline Phosphatase 127 IU/L (40-130); Anion Gap 14.6 (5-19); Aspartate Amino Transferase 16 U/L (0-40); Blood Urea Nitrogen 19 mg/dL (8-23); Calcium 8.8 mg/dL (8.5-10.5); Carbon Dioxide 22 mmol/L (22-29); Chloride 109 mmol/L (98-107); Globulin 3.2 g/dL (1.3-4.6); Glucose 189 mg/dL (65-115); Osmolality Calculated 301 mOsm/kg (285-295); Potassium 3.6 mmol/L (3.5-5.1); Sodium 142 mmol/L (136-145); Total Bilirubin 0.8 mg/dL (0.15-1.2); Total Protein 6.2 g/dL (6.6-8.7)
--- NOTE | 2021-08-05 07:49 | PC.NURSE ---
Telenephrology in to see patient, discussed plan of care encouraged PO intake.
--- NOTE | 2021-08-05 08:46 | P.PN_ITS ---
Subjective Subjective: Interval history: feels better. no n/v/f/c/miller/d/leg pain Medications: Reviewed: Yes Medication Review Details: Current Medications Albuterol/Ipratropium (Ipratropium-Albuterol 3 Ml Neb) 3 ml INHALATION Q6H PRN PRN Reason: SHORTNESS OF BREATH Aspirin (Aspirin 81 Mg Ec Tablet) 81 mg PO DAILY@08 COUNTS INCLUDE 234 BEDS AT THE [facility] Atorvastatin Calcium (Atorvastatin 40 Mg Tablet) 20 mg PO DAILY@20 COUNTS INCLUDE 234 BEDS AT THE [facility] Last Admin: 08/04/21 20:35 Dose: Not Given Documented by: Fluticasone Propionate (Fluticasone Nasal [place] 16gm Btl) 1 spray NASAL BID COUNTS INCLUDE 234 BEDS AT THE [facility] Last Admin: 08/04/21 18:44 Dose: Not Given Documented by: Piperacillin Sod/Tazobactam (Sod 3.375 gm/ Sodium Chloride) 50 mls @ 12.5 mls/hr IV Q8H COUNTS INCLUDE 234 BEDS AT THE [facility]; Protocol Last Admin: 08/05/21 05:56 Dose: 12.5 mls/hr Documented by: Dextrose (D5w) 1,000 mls @ 100 mls/hr IV .Q10H COUNTS INCLUDE 234 BEDS AT THE [facility] Last Admin: 08/05/21 05:57 Dose: 100 mls/hr Documented by: Metoprolol Tartrate (Metoprolol Tartrate 1 Mg/1 Ml Sdv 5 Ml) 2.5 mg IVP Q6H PRN PRN Reason: HEART RATE-HIGH Nystatin (Nystatin Powder 15 Gm Btl) 1 applic TOPICAL BID PRN PRN Reason: SKIN IRRITATION Last Admin: 08/01/21 05:56 Dose: 1 applic Documented by: Ondansetron HCl (Ondansetron 2 Mg/Ml Sdv 2 Ml) 4 mg IVP Q6H PRN PRN Reason: NAUSEA AND VOMITING Potassium Phosphate (Phosphorus 250 Mg Tablet) 250 mg PO BID COUNTS INCLUDE 234 BEDS AT THE [facility] Last Admin: 08/04/21 18:49 Dose: 250 mg Documented by: Senna/Docusate Sodium (Sennosides-Docusate Tablet) 1 tab PO DAILY COUNTS INCLUDE 234 BEDS AT THE [facility] Last Admin: 08/04/21 09:01 Dose: 1 tab Documented by: Simethicone (Simethicone 80 Mg Chew) 80 mg PO BID PRN PRN Reason: UNKNOWN Vitals/I&O/Wt Last Vital Signs Temp 98.1 F 08/05/21 08:35 Pulse 104 H 08/05/21 08:35 Resp 18 08/05/21 08:35 BP 128/85 08/05/21 08:35 Pulse Ox 93 08/05/21 08:35 08/04/21 08/05/21 08/05/21 22:59 06:59 14:59 Intake Total 1170 / 1520 996.667 / 2516.667 Output Total 700 / 700 500 / 1200 Balance 470 / 820 496.667 / 1316.667 Weight last 48 hrs Weight 103.419 kg Weight 104.326 kg Physical Exam Narrative: EXAM NARRATIVE: elderly in bed, NARD vs noted- tachycardic heent- nc/at, eomi, anicteric neck supple, no jvp. dialysis catheters removed lungs clear b/l heart- reg,tachycardic. s1, s2 abd soft, nt, nd ext no edema neuro- a,a, o x 2+, moves all extremities Urinary Catheter Management^: Medeiros Latex: Cath Placed During This Visit: yes Reason for Continuing Indwelling Catheter: Other Urinary Catheter Date of Insertion: 07/30/21 Urinary Catheter Time of Insertion: 22:41 Data : 08/05/21 06:25 08/05/21 06:25 Micro: Microbiology 08/01/21 18:19 Urine Culture - Final Urine Catheterized A&P Additional A&P Information 1. Renal failure working dx is pre-sagar azotemia -cr is improving, saturating well on room air, k is 4.5 -baseline cr is 1.2- 1.4- s/p nephrectomy on 07-04-21 Avoid usual nephrotoxic agents Dose medications for GFR less than 50 u/a 1+ ketones , 5-10 wbc, oval fat bodies -low ur na of 28 noted -ct scan- left nephrectomy -fleets enema can cause CARLITO -monitor uop and chemistries -cr 1.6 and ckd stage 3 may be his new baseline renal fxn after recent nephrectomy 2. hypernatremia improved 3. monitor k, mag, and phos and replete as needed 4. normal hgb 5. MS is improving 6. DM- per hospitalist. consider sglt2-i, as DM w/ CKD 7. UTI improving meds reviewed discussed w/ RN Patient seen and examined via telemedicine, with the assistance of the bedside RN > 25 min spent in evaluation and mgmt of patient Attestations Medical Necessity Statement*: per medicine Time Spent in Patient Care: 16 - 35 minutes (>than 50% of time spent in counselling and/or direct pt care on unit) . Coding Level of Care Code Acute Pet Crematory Worker for Rosemarie Monreal
[2021-08-05] MEDS: sennosides-docusate Tablet 1 TAB PO (09:08)
[2021-08-05] MEDS: fluticasone nasal spray 16gm Btl 1 SPRAY NASAL ×2 (09:08→17:09)
[2021-08-05] MEDS: potassium chloride ER 20 mEq Tablet 40 MEQ PO (09:08)
[2021-08-05] MEDS: aspirin 81 mg EC Tablet PO (09:08)
[2021-08-05] MEDS: phosphorus 250 mg Tablet PO (09:08)
[2021-08-05] MEDS: simethicone 80 mg Chew PO (14:21)
[2021-08-05] MEDS: ondansetron 2 mg/ML SDV 2 mL 4 MG IVP (14:30)
--- NOTE | 2021-08-05 14:32 | PC.NURSE ---
Patient complaining of belching frequently with nausea, PRN simethicone and zofran given per doctors orders see MAR for further details.
--- NOTE | 2021-08-05 16:21 | P.PN_ITS ---
Subjective Subjective: Interval history: She is doing all right. He was scratching his eye, but it is now feeling better. Does state he is feeling somewhat achy all over. Vitals/I&O/Wt Last Vital Signs Temp 98.4 F 08/05/21 12:47 Pulse 79 08/05/21 12:47 Resp 18 08/05/21 12:47 BP 145/82 08/05/21 12:47 Pulse Ox 93 08/05/21 12:47 08/05/21 08/05/21 08/05/21 06:59 14:59 22:59 Intake Total 996.667 / 2516.667 941.667 / 941.667 Output Total 500 / 1200 Balance 496.667 / 1316.667 941.667 / 941.667 Weight last 48 hrs Weight 103.419 kg Weight 104.326 kg Physical Exam Const: COMMON NORMALS: no acute distress GENERAL APPEARANCE: cooperative and comfortable NUTRITIONAL APPEARANCE: obese ORIENTATION/CONSCIOUSNESS: Yes awake and Yes confused HENMT: COMMON NORMALS: oropharynx normal Neck/C-Spine: COMMON NORMALS: no JVD Resp: COMMON NORMALS: normal respiratory effort and clear to auscultation bilaterally AUSCULTATION: clear to auscultation bilaterally Cardio: COMMON NORMALS: no JVD, regular rhythm, S1 normal heart sound present, S2 normal heart sound present and No murmurs present (Cardio) RHYTHM: regular rhythm HEART SOUNDS: S1 normal heart sound present and S2 normal heart sound present GI: COMMON NORMALS: Normal to inspection, nondistended, normoactive bowel sounds present, Soft to palpation and non-tender PALPATION: Yes Soft to palpation OTHER: Well healing laparoscopy wounds LL abdomen Extremity: COMMON NORMALS: no joint enlargement and no pedal edema Neuro: COMMON NORMALS: moves all extremities Skin: COMMON NORMALS: no rashes or lesions noted GENERAL SKIN EXAM: no rashes or lesions noted Urinary Catheter Management^: Medeiros Latex: Cath Placed During This Visit: yes Reason for Continuing Indwelling Catheter: Other Urinary Catheter Date of Insertion: 07/30/21 Urinary Catheter Time of Insertion: 22:41 Data : 08/05/21 06:25 08/05/21 06:25 A&P Assessment and plan (1) Altered mental status: Continue to improve. Calm, cooperative. Knows he is in the hospital. Improving hypernatremia. No abdominal pain. No sign of sepsis. Continue empiric antibiotics. Once prior authorization complete, likely may be able to return to retirement to continue recovery. Acute metabolic encephalopathy. With acute kidney injury. Initially possible component of uremia, but this should be resolving. Not entirely clear cause of his ongoing encephalopathy. Appears confusion has been present since returning from the hospital after his nephrectomy. This would make it a protracted delirium. Unclear whether he had possibly some mild underlying cognitive dysfunction prior to that hospitalization making him at risk for the protracted delirium. Infection was another possibility with some persistent sinus tachycardia on presentation, although has been afebrile. Initial leukocytosis present, so far resolved. Subcutaneous emphysema noted in the left lower abdomen. Superficially wounds appear to be healing very well, no erythema, and no tenderness on examination. Possibly was developing some infection there, but likely responding well to antibiotic. Would continue with antibiotic at this time. Arrange follow-up after discharge. He is doing worse this evening, and appears to have some component of owning. Remove dialysis access. If condition continues to improve, we will try to de- escalate treatments, switch to oral medications, remove catheter, IV. Renal function gradually improving. Needs close observation, at risk of pulling out his IV, Medeiros catheter or otherwise injure himself accidentally in the confused state. Could go to medical floor with one-to-one observation. Status: Acute (2) Acute kidney injury: Improving. Producing urine. Continue IVF for now as he is not eating very well. Medeiros catheter for accurate I&O. Status: Acute (3) Abdominal tenderness: CT abdomen pelvis as above with noted left lower abdominal subcutaneous emphysema. No fluid collection to suggest abscess. Tracking through abdominal wall, unclear whether he had a had a drain after surgery. Externally no erythema, wounds healing well. This morning denies any discomfort on palpation. Continue empirically Zosyn. Follow-up urine cultures. Request blood cultures. Sinus tachycardia, leukocytosis resolved. Arrange follow-up after discharge. Status: Acute (4) Acute uremia: Should be resolved Status: Acute (5) Hyperkalemia: Improved Status: Acute (6) Metabolic encephalopathy: As above. Status: Acute Additional A&P Information UTI: Zosyn. Urine culture with mixed superficial kyle from 07/31, repeat culture 08/01 no growth. Recent nephrectomy at [facility] in [place]. Medical records have been obtained. Looks like was discharged from there 07/04. Attestations Medical Necessity Statement*: Continue admission for treatment of possible abdominal wall infection which is improving, improving acute encephalopathy, improving acute kidney injury, disposition planning and arrangements, pending prior authorization for return to retirement. Coding Level of Care Code Acute Farmworker Vegetable for g Fwd Diagnoses Altered mental status R41.82 Acute kidney injury N17.9 Abdominal tenderness R10.819 Acute uremia N19 Hyperkalemia E87.5 Metabolic encephalopathy G93.41
--- NOTE | 2021-08-05 18:39 | PC.PT ---
Attempted PT visit x 2, first attempt pt declined due to heartburn and nurse was notifed who gave him meds, second attempt pt declined due to nausea, nurse notified.
[2021-08-05] MEDS: atorvastatin 40 mg Tablet 20 MG PO (21:28)
[2021-08-06] VITALS (7 sets, daily range): BP systolic 105–146; BP diastolic 69–89; PULSE 70–110; RESP 16–17; TEMP 36.6–36.9; O2SAT 92–97
[2021-08-06] MEDS: ondansetron 2 mg/ML SDV 2 mL 4 MG IVP ×3 (00:02→09:09)
[2021-08-06] MEDS: piperacillin-tazobactam 3.375 GM in sodium chloride 0.9% (plus) 50 ML IV ×3 (05:37→22:13)
[2021-08-06] MEDS: simethicone 80 mg Chew PO (05:42)
[2021-08-06] MEDS: metoclopramide 5 mg/mL SDV 2 mL 10 MG IVP (05:42)
[2021-08-06 07:03] LABS: Basophils % 0.4 %; Eosinophils # 0.2 10^3/uL (0.0-0.8); Hematocrit 40.9 % (42.0-52.0); Lymphocytes # 1.2 10^3/uL (0.8-4.8); Lymphocytes % 11.2 %; Mean Corpuscular HGB Conc 31.8 g/dL (30.0-36.0); Mean Corpuscular Hemoglobin 28.4 pg (28.0-34.0); Mean Corpuscular Volume 89.3 fl (80-94); Mean Platelet Volume 11.7 fL (7.4-10.4); Monocytes # 0.6 10^3/uL (0.2-0.9); Monocytes % 5.5 %; Neutrophils # 8.69 10^3/uL (1.8-7.7); Neutrophils % 80.5 %; Nucleated Red Blood Cells % 0 %; Platelet Count 178 10^3/cmm (130-400); Red Blood Count 4.58 10^6/uL (4.1-5.3); Red Cell Distribution Width 15.9 % (12.1-15.1); White Blood Count 10.8 10^3/uL (4.0-10.0)
[2021-08-06 07:24] LABS: Alanine Aminotransferase 21 U/L (0-41); Albumin Level 3.2 g/dL (3.5-5.2); Alkaline Phosphatase 140 IU/L (40-130); Anion Gap 17.7 (5-19); Aspartate Amino Transferase 20 U/L (0-40); Blood Urea Nitrogen 17 mg/dL (8-23); Calcium 8.6 mg/dL (8.5-10.5); Carbon Dioxide 23 mmol/L (22-29); Chloride 106 mmol/L (98-107); Globulin 2.4 g/dL (1.3-4.6); Glucose 199 mg/dL (65-115); Magnesium 1.7 mg/dL (1.7-2.3); Osmolality Calculated 303 mOsm/kg (285-295); Phosphorus 2.6 mg/dL (2.5-4.5); Potassium 3.7 mmol/L (3.5-5.1); Sodium 143 mmol/L (136-145); Total Bilirubin 0.7 mg/dL (0.15-1.2); Total Protein 5.6 g/dL (6.6-8.7)
--- NOTE | 2021-08-06 07:31 | PM.PN ---
Subjective Subjective: Interval history: nausea and vomiting overnight, rt elbow swollen. no sob or cp or miller or leg pains. Medications: Reviewed: Yes Medication Review Details: Current Medications Albuterol/Ipratropium (Ipratropium-Albuterol 3 Ml Neb) 3 ml INHALATION Q6H PRN PRN Reason: SHORTNESS OF BREATH Aspirin (Aspirin 81 Mg Ec Tablet) 81 mg PO DAILY@08 [facility] Last Admin: 08/05/21 09:08 Dose: 81 mg Documented by: Atorvastatin Calcium (Atorvastatin 40 Mg Tablet) 20 mg PO DAILY@20 [facility] Last Admin: 08/05/21 21:28 Dose: 20 mg Documented by: Fluticasone Propionate (Fluticasone Nasal [place] 16gm Btl) 1 spray NASAL BID [facility] Last Admin: 08/05/21 17:09 Dose: 1 spray Documented by: Piperacillin Sod/Tazobactam (Sod 3.375 gm/ Sodium Chloride) 50 mls @ 12.5 mls/hr IV Q8H [facility]; Protocol Last Admin: 08/06/21 05:37 Dose: 12.5 mls/hr Documented by: Dextrose (D5w) 1,000 mls @ 30 mls/hr IV .Q24H [facility] Last Infusion: 08/05/21 19:24 Dose: 30 mls/hr Documented by: Metoprolol Tartrate (Metoprolol Tartrate 1 Mg/1 Ml Sdv 5 Ml) 2.5 mg IVP Q6H PRN PRN Reason: HEART RATE-HIGH Non-Formulary Medication (Ivpqphlhszw-Hrxpdtxlx-Wcjiijxm [Trelegy Ellipta]) 1 inh INHALATION DAILY@08 [facility] Nystatin (Nystatin Powder 15 Gm Btl) 1 applic TOPICAL BID PRN PRN Reason: SKIN IRRITATION Last Admin: 08/01/21 05:56 Dose: 1 applic Documented by: Ondansetron HCl (Ondansetron 2 Mg/Ml Sdv 2 Ml) 4 mg IVP Q6H PRN PRN Reason: NAUSEA AND VOMITING Last Admin: 08/06/21 05:37 Dose: 4 mg Documented by: Potassium Phosphate (Phosphorus 250 Mg Tablet) 250 mg PO BID [facility] Last Admin: 08/05/21 17:13 Dose: Not Given Documented by: Senna/Docusate Sodium (Sennosides-Docusate Tablet) 1 tab PO DAILY [facility] Last Admin: 08/05/21 09:08 Dose: 1 tab Documented by: Simethicone (Simethicone 80 Mg Chew) 80 mg PO BID PRN PRN Reason: UNKNOWN Last Admin: 08/06/21 05:42 Dose: 80 mg Documented by: Vitals/I&O/Wt Last Vital Signs Temp 98.3 F 08/06/21 04:00 Pulse 78 08/06/21 04:00 Resp 17 08/06/21 04:00 BP 146/89 08/06/21 04:00 Pulse Ox 96 08/06/21 04:00 08/05/21 08/06/21 08/06/21 22:59 06:59 14:59 Intake Total 673.333 / 1615.000 50 / 1665.000 Output Total 350 / 350 Balance 673.333 / 1615.000 -300 / 1315.000 Weight last 48 hrs Weight 103.873 kg Weight 103.419 kg Physical Exam Narrative: EXAM NARRATIVE: elderly in bed, NARD vs noted and stable heent- nc/at, eomi, anicteric neck supple, no jvp. lungs -left basal crackles, rt clear heart- RRR, s1, s2 abd soft, nt, nd, + hyperactive bs ext no edema in legs, rt elbow area swollen neuro- a,a, o x 2+, moves all extremities Urinary Catheter Management^: Medeiros Latex: Cath Placed During This Visit: yes Reason for Continuing Indwelling Catheter: Other Urinary Catheter Date of Insertion: 07/30/21 Urinary Catheter Time of Insertion: 22:41 Data : 08/06/21 05:39 08/06/21 05:39 A&P Additional A&P Information 1. Renal failure working dx is pre-sagar azotemia -cr is improved to 1.6 mg/dl -baseline cr is 1.2- 1.4- s/p nephrectomy on 07-04-21 -cr back upto 1.8 mg/dl- can be from n/v. however, bun not rising Avoid usual nephrotoxic agents Dose medications for GFR less than 50 u/a 1+ ketones , 5-10 wbc, oval fat bodies -low ur na of 28 noted -ct scan- left nephrectomy -fleets enema can cause CARLITO -monitor uop and chemistries -cr 1.6 -1/8 mg/dl, ckd stage 3 may be his new baseline renal fxn after recent nephrectomy 2. hypernatremia improved 3. monitor k, mag, and phos and replete as needed 4. abd pain, n/v- per medicine- consider KUB 5. MS is improving 6. DM- per hospitalist. consider sglt2-i, as DM w/ CKD 7. UTI per medicine meds reviewed discussed w/ RN Patient seen and examined via telemedicine, with the assistance of the bedside RN > 25 min spent in evaluation and mgmt of patient Attestations Medical Necessity Statement*: per medicine Time Spent in Patient Care: 16 - 35 minutes (>than 50% of time spent in counselling and/or direct pt care on unit). Coding Level of Care Code Acute Security Officer Supervisor for Rosemarie Monreal
[2021-08-06] MEDS: phosphorus 250 mg Tablet PO ×2 (08:08→17:46)
[2021-08-06] MEDS: aspirin 81 mg EC Tablet PO (08:08)
[2021-08-06] MEDS: sennosides-docusate Tablet 1 TAB PO (08:08)
[2021-08-06] MEDS: sodium chloride 0.45% 1,000 ML 75 ML IV ×2 (08:09→22:12)
[2021-08-06] MEDS: fluticasone nasal spray 16gm Btl 1 SPRAY NASAL ×2 (08:12→17:47)
[2021-08-06] MEDS: pantoprazole 40 mg SDV IVP ×2 (09:09→17:47)
--- NOTE | 2021-08-06 10:16 | PC.CHAP ---
Pastoral Care Encounter/Spiritual Assessment Type of Contact [] Declined heel emery buffer visit [] Patient/Family/Request visit [] Outpatient visit [] Follow-up visit [] Physician referral [] Code/Alert [x] Routine visit [] Staff referral [] Actively dying [] Patient sleeping [] Family support [] [] Out of room [] Palliative care [] [] Receiving care in room [] Pre-surgical visit [] Trauma [] Long length of stay [] ICU visit [] Other: Relational/Emotional Strength [x] Patient feels connected with others/family/visitors/staff [] Distress [] Loneliness/isolation [] Abandonment Spirituality of Patient [x] Person of Rosa [] Attends Mormon of their Rosa [x] Believes in Prayer [] Reads Bible or Presybeterian materials [] There are Spiritual issues to be addressed Stock [employer] Interventions [x] Prayer [x] Active listening [x] Non-anxious presence [] Spiritual/emotional support [] Crisis/trauma care [] Spiritual counseling [] Bereavement support [] Provided bereavement packet [] Provided Bible/devotional materials [] Provided toy/stuffed animal, coloring book to patient or family member [] Provided Communion [] Anointing/[place] [] Salvation [x] Completed spiritual assessment [] Other: Impact on Illness or Injury [] Angry [] Fearful [] Anxious [] Often cries [] Exhaustion [] Unable to work [] Unable to attend yarsanism [] Unable to walk/stand [] Unable to read [] Unable to drive [] Unable to eat/drink [] Unable to sleep [] Unable to be with family [] Patient intubated [] Other: Summary +patient coughing Time spent with patient 10 min
--- NOTE | 2021-08-06 16:52 | P.PN_ITS ---
Subjective Subjective: Interval history: Hospital course, labs appreciated. Examination family at bedside. They state patient is feeling depressed and having to complete conversation after a long time. On examination patient sleeping but wakes up to conversation. Is able to hold conversation. Denies any nausea vomiting, headache. Forgetful. Did have few episodes of vomiting today morning which as per the nurse was coffee-ground in color. No melena. Has remained hemodynamically stable and afebrile. Medications: Reviewed: Yes Vitals/I&O/Wt Last Vital Signs Temp 97.9 F 08/06/21 16:19 Pulse 74 08/06/21 16:19 Resp 16 08/06/21 16:19 BP 129/85 08/06/21 16:19 Pulse Ox 92 08/06/21 16:19 08/06/21 08/06/21 08/06/21 06:59 14:59 22:59 Intake Total 50 / 1665.000 434.5 / 434.5 Output Total 350 / 350 Balance -300 / 1315.000 434.5 / 434.5 Weight last 48 hrs Weight 103.873 kg Weight 103.419 kg Physical Exam Const: COMMON NORMALS: no acute distress GENERAL APPEARANCE: cooperative and comfortable NUTRITIONAL APPEARANCE: obese ORIENTATION/CONSCIOUSNESS: Yes awake and Yes confused HENMT: COMMON NORMALS: oropharynx normal Neck/C-Spine: COMMON NORMALS: no JVD Resp: COMMON NORMALS: normal respiratory effort and clear to auscultation bilaterally AUSCULTATION: clear to auscultation bilaterally Cardio: COMMON NORMALS: no JVD, regular rhythm, S1 normal heart sound present, S2 normal heart sound present and No murmurs present (Cardio) RHYTHM: regular rhythm HEART SOUNDS: S1 normal heart sound present and S2 normal heart sound present GI: COMMON NORMALS: Normal to inspection, nondistended, normoactive bowel sounds present, Soft to palpation and non-tender PALPATION: Yes Soft to palpation OTHER: Well healing laparoscopy wounds LL abdomen Extremity: COMMON NORMALS: no joint enlargement and no pedal edema Neuro: COMMON NORMALS: moves all extremities Skin: COMMON NORMALS: no rashes or lesions noted GENERAL SKIN EXAM: no rashes or lesions noted Urinary Catheter Management^: Medeiros Latex: Cath Placed During This Visit: yes Reason for Continuing Indwelling Catheter: Other Urinary Catheter Date of Insertion: 07/30/21 Urinary Catheter Time of Insertion: 22:41 Data : 11/29/21 05:39 08/06/21 05:39 A&P Assessment and plan (1) Altered mental status: Multifactorial most likely a combination of worsening dementia in setting of acute kidney injury, hypernatremia, uremia, recent discharge from outside hospital post nephrectomy. Acute metabolic encephalopathy. With acute kidney injury. Initially possible component of uremia, but this should be resolving. Not entirely clear cause of his ongoing encephalopathy. Appears confusion has been present since returning from the hospital after his nephrectomy. This would make it a protracted delirium. Unclear whether he had possibly some mild underlying cognitive dysfunction prior to that hospitalization making him at risk for the protracted delirium. Infection was another possibility with some persistent sinus tachycardia on presentation, although has been afebrile. Initial leukocytosis present, so far resolved. Subcutaneous emphysema noted in the left lower abdomen. Superficially wounds appear to be healing very well, no erythema, and no tenderness on examination. Possibly was developing some infection there, but likely responding well to antibiotic. Would continue with antibiotic at this time. Arrange follow-up after discharge. Improving hypernatremia. No abdominal pain. No sign of sepsis. Continue empiric antibiotics. Once prior authorization complete, likely may be able to return to halfway to continue recovery. Continue to improve. Calm, cooperative. Alert to self, place, note with his daughter today. Status: Acute (2) Acute kidney injury: Improving. Producing urine. Continue IVF for now as he is not eating very well. Medeiros catheter for accurate I&O. Status: Acute (3) Abdominal tenderness: CT abdomen pelvis as above with noted left lower abdominal subcutaneous emphysema. No fluid collection to suggest abscess. Tracking through abdominal wall, unclear whether he had a had a drain after surgery. Externally no erythema, wounds healing well. This morning denies any discomfort on palpation. Continue empirically Zosyn. Will finish a 5-day course. Follow-up blood cultures urine cultures so far negative. Arrange follow-up after discharge. Status: Acute (4) Acute uremia: Resolved. Status: Acute (5) Hyperkalemia: Resolved. Status: Acute (6) Metabolic encephalopathy: As above. Status: Acute Additional A&P Information Recent nephrectomy at [facility] in [place]. Medical records have been obtained. Looks like was discharged from there 07/04. Type 2 diabetes mellitus: Continue to hold OHA's. Start on insulin sliding scale. Coffee-ground emesis: Most likely secondary to gastritis. Has remained hemodynamically stable. Hemoglobin stable. Start Protonix 40 mg IV twice daily. Zofran as needed. Carafate. Recheck hemoglobin in evening. Full code. Protonix for PUD prophylaxis. SCDs for DVT prophylaxis. Soft mechanical diet. Discharge planning: Discharge back to SNF once prior authorization done. Attestations Medical Necessity Statement*: Seen for management of resolving AMS secondary to abdominal wall cellulitis, uremia, CARLITO while safe discharge planning is sought. Time Spent in Patient Care: Greater than 35 minutes (>than 50% of time spent in counselling and/or direct pt care on unit) . Coding Level of Care Code Acute It Consultant for Rosemarie Monreal Diagnoses Altered mental status R41.82 Acute kidney injury N17.9 Abdominal tenderness R10.819 Acute uremia N19 Hyperkalemia E87.5 Metabolic encephalopathy G93.41
[2021-08-06 17:29] LABS: Glucose Point of Care 184 mg/dL (70-110)
[2021-08-06] MEDS: sucralfate 1 gm/10 mL Oral Liq UDC PO ×2 (17:46→22:12)
[2021-08-06] MEDS: insulin lispro 100 unit/1 mL SUBCUT (17:47)
[2021-08-06 20:56] LABS: Hematocrit 38.3 % (42.0-52.0); Hemoglobin 12.2 g/dL (11.7-16.6)
[2021-08-06 21:33] LABS: Glucose Point of Care 131 mg/dL (70-110)
[2021-08-06] MEDS: atorvastatin 40 mg Tablet 20 MG PO (22:11)
[2021-08-07] VITALS: BP 88/58; PULSE 77; RESP 17; TEMP 36.6; O2SAT 94
[2021-08-07 04:00] VITALS: BP 100/65; PULSE 79; RESP 17; TEMP 36.6; O2SAT 95
[2021-08-07] MEDS: pantoprazole 40 mg SDV IVP (05:30)
[2021-08-07 06:45] LABS: Glucose Point of Care 112 mg/dL (70-110)
[2021-08-07] MEDS: sucralfate 1 gm/10 mL Oral Liq UDC PO ×2 (06:52→12:31)
[2021-08-07] MEDS: metoprolol succinate ER (24 HR) 25 mg Tablet PO (06:52)
[2021-08-07] MEDS: piperacillin-tazobactam 3.375 GM in sodium chloride 0.9% (plus) 50 ML IV (06:52)
[2021-08-07 06:55] LABS: Basophils # 0.1 10^3/uL (0.0-0.1); Basophils % 0.5 %; Eosinophils # 0.3 10^3/uL (0.0-0.8); Eosinophils % 3.4 %; Hematocrit 40.1 % (42.0-52.0); Hemoglobin 12.2 g/dL (11.7-16.6); Lymphocytes # 1.5 10^3/uL (0.8-4.8); Lymphocytes % 16.1 %; Mean Corpuscular HGB Conc 30.4 g/dL (30.0-36.0); Mean Corpuscular Hemoglobin 28.4 pg (28.0-34.0); Mean Corpuscular Volume 93.3 fl (80-94); Mean Platelet Volume 11.5 fL (7.4-10.4); Monocytes # 0.6 10^3/uL (0.2-0.9); Neutrophils # 6.79 10^3/uL (1.8-7.7); Neutrophils % 73.6 %; Nucleated Red Blood Cells % 0 %; Platelet Count 150 10^3/cmm (130-400); White Blood Count 9.2 10^3/uL (4.0-10.0)
[2021-08-07 07:16] LABS: Alanine Aminotransferase 26 U/L (0-41); Albumin Level 2.9 g/dL (3.5-5.2); Alkaline Phosphatase 120 IU/L (40-130); Anion Gap 15.8 (5-19); Aspartate Amino Transferase 21 U/L (0-40); Blood Urea Nitrogen 16 mg/dL (8-23); Calcium 8.2 mg/dL (8.5-10.5); Carbon Dioxide 20 mmol/L (22-29); Chloride 109 mmol/L (98-107); Globulin 2.2 g/dL (1.3-4.6); Glucose 109 mg/dL (65-115); Magnesium 1.6 mg/dL (1.7-2.3); Osmolality Calculated 294 mOsm/kg (285-295); Phosphorus 2.1 mg/dL (2.5-4.5); Potassium 3.8 mmol/L (3.5-5.1); Sodium 141 mmol/L (136-145); Total Bilirubin 0.5 mg/dL (0.15-1.2); Total Protein 5.1 g/dL (6.6-8.7)
[2021-08-07 07:44] LABS: Estmated Average Glucose 140; Hemoglobin A1C 6.5 % (4.0-6.0)
--- NOTE | 2021-08-07 07:47 | P.PN_ITS ---
Subjective Subjective: Interval history: feels better. still confused. wants to go home. no n/v/f/c/miller/d Medications: Reviewed: Yes Medication Review Details: Current Medications Albuterol/Ipratropium (Ipratropium-Albuterol 3 Ml Neb) 3 ml INHALATION Q6H PRN PRN Reason: SHORTNESS OF BREATH Aspirin (Aspirin 81 Mg Ec Tablet) 81 mg PO DAILY@08 [facility] Last Admin: 08/06/21 08:08 Dose: 81 mg Documented by: Atorvastatin Calcium (Atorvastatin 40 Mg Tablet) 20 mg PO DAILY@20 [facility] Last Admin: 08/06/21 22:11 Dose: 20 mg Documented by: Dextrose (Dextrose 50% Syringe 50 Ml) 25 ml IVP ONCE PRN; Protocol PRN Reason: hypoglycemia protocol Dextrose (Dextrose 50% Syringe 50 Ml) 50 ml IVP PRN PRN; Protocol PRN Reason: hypoglycemia protocol Fluticasone Propionate (Fluticasone Nasal [place] 16gm Btl) 1 spray NASAL BID [facility] Last Admin: 08/06/21 17:47 Dose: 1 spray Documented by: Glucagon (Glucagon 1 Mg/Ml Inj 1 Ml) 1 mg IM ONCE PRN; Protocol PRN Reason: Adult Acute Hypoglycemia Prot. Piperacillin Sod/Tazobactam (Sod 3.375 gm/ Sodium Chloride) 50 mls @ 12.5 mls/hr IV Q8H [facility]; Protocol Last Admin: 08/07/21 06:52 Dose: 12.5 mls/hr Documented by: Sodium Chloride (Sodium Chloride 0.45%) 1,000 mls @ 75 mls/hr IV .[id number] [facility] Last Admin: 08/06/21 22:12 Dose: 75 mls/hr Documented by: Dextrose (D5w) 500 mls @ 100 mls/hr IV ONCE PRN; Protocol PRN Reason: Adult Acute Hypoglycemia Prot Insulin Human Lispro (Insulin Lispro 100 Unit/1 Ml) 0 unit SUBCUT WM&BEDTIME [facility]; Protocol Last Admin: 08/06/21 21:35 Dose: Not Given Documented by: Metoprolol Succinate (Metoprolol Succinate Er (24 Hr) 25 Mg Tablet) 25 mg PO DAILY@07 [facility] Last Admin: 08/07/21 06:52 Dose: 25 mg Documented by: Metoprolol Tartrate (Metoprolol Tartrate 1 Mg/1 Ml Sdv 5 Ml) 2.5 mg IVP Q6H PRN PRN Reason: HEART RATE-HIGH Non-Formulary Medication (Raapkrgigpu-Joihcnjvb-Trobumxe [Trelegy Ellipta]) 1 inh INHALATION DAILY@08 [facility] Last Admin: 08/06/21 08:12 Dose: Not Given Documented by: Nystatin (Nystatin Powder 15 Gm Btl) 1 applic TOPICAL BID PRN PRN Reason: SKIN IRRITATION Last Admin: 08/01/21 05:56 Dose: 1 applic Documented by: Ondansetron HCl (Ondansetron 2 Mg/Ml Sdv 2 Ml) 4 mg IVP Q6H PRN PRN Reason: NAUSEA AND VOMITING Last Admin: 08/06/21 05:37 Dose: 4 mg Documented by: Pantoprazole Sodium (Pantoprazole 40 Mg Sdv) 40 mg IVP Q12H [facility] Last Admin: 08/07/21 05:30 Dose: 40 mg Documented by: Potassium Phosphate (Phosphorus 250 Mg Tablet) 250 mg PO BID [facility] Last Admin: 08/06/21 17:46 Dose: 250 mg Documented by: Senna/Docusate Sodium (Sennosides-Docusate Tablet) 1 tab PO DAILY [facility] Last Admin: 08/06/21 08:08 Dose: 1 tab Documented by: Simethicone (Simethicone 80 Mg Chew) 80 mg PO BID PRN PRN Reason: UNKNOWN Last Admin: 08/06/21 05:42 Dose: 80 mg Documented by: Sucralfate (Sucralfate 1 Gm/10 Ml Oral Liq Udc) 1 gm PO AC&BEDTIME [facility] Last Admin: 08/07/21 06:52 Dose: 1 gm Documented by: Vitals/I&O/Wt Last Vital Signs Temp 97.8 F 08/07/21 04:00 Pulse 79 08/07/21 04:00 Resp 17 08/07/21 04:00 BP 100/65 08/07/21 04:00 Pulse Ox 95 08/07/21 04:00 08/06/21 08/07/21 08/07/21 22:59 06:59 14:59 Intake Total 1050 / 1484.5 530 / 2014.5 Output Total 300 / 300 Balance 1050 / 1484.5 230 / 1714.5 Weight last 48 hrs Weight 104.417 kg Weight 103.873 kg Physical Exam Narrative: EXAM NARRATIVE: elderly in bed, NARD vs noted and BP on low side heent- nc/at, eomi, anicteric neck supple, no jvp. lungs -b/l crackles heart- RRR, s1, s2 abd soft, nt, nd, +BS ext -trace to 1+ edema in legs, rt elbow area swollen neuro- a,a, o x 2, moves all extremities Urinary Catheter Management^: Medeiros Latex: Cath Placed During This Visit: yes Reason for Continuing Indwelling Catheter: Accurate Measurement of Urinary Output in Critically Ill Patients Urinary Catheter Date of Insertion: 07/30/21 Urinary Catheter Time of Insertion: 22:41 Data : 08/07/21 05:20 08/07/21 05:20 A&P Additional A&P Information 1. Renal failure working dx is pre-renal azotemia -cr is improved to 1.6 mg/dl -baseline cr is 1.2- 1.4- s/p nephrectomy on 07-04-21 Avoid usual nephrotoxic agents Dose medications for GFR less than 50 u/a 1+ ketones , 5-10 wbc, oval fat bodies -low ur na of 28 noted -ct scan- left nephrectomy -fleets enema can cause CARLITO -monitor uop and chemistries -cr 1.6 mg/dl, ckd stage 3 may be his new baseline renal fxn after recent nephrectomy 2. hypernatremia improved 3. monitor k, mag, and phos and replete as needed- neutraphos and mag sulfate- monitor and treat and diarrhea 4. DM- per hospitalist. consider sglt2-i, as DM w/ CKD meds reviewed -if eating, d/c ivf discussed w/ RN Patient seen and examined via telemedicine, with the assistance of the bedside RN > 25 min spent in evaluation and mgmt of patient Attestations Medical Necessity Statement*: per medicine Time Spent in Patient Care: 16 - 35 minutes (>than 50% of time spent in counselling and/or direct pt care on unit) . Coding Level of Care Code Acute Weatherization Specialist for Rosemarie Monreal
[2021-08-07 08:00] VITALS: BP 115/73; PULSE 69; RESP 16; TEMP 36.8; O2SAT 93
[2021-08-07] MEDS: aspirin 81 mg EC Tablet PO (08:32)
[2021-08-07] MEDS: fluticasone nasal spray 16gm Btl 1 SPRAY NASAL (08:33)
[2021-08-07] MEDS: phosphorus 250 mg Tablet PO ×2 (08:33→15:26)
[2021-08-07] MEDS: sennosides-docusate Tablet 1 TAB PO (08:33)
[2021-08-07 12:00] VITALS: BP 122/83; PULSE 75; RESP 18; TEMP 36.5; O2SAT 96
[2021-08-07 12:05] LABS: Glucose Point of Care 122 mg/dL (70-110)
[2021-08-07 12:32] LABS: SARS Covid-2 Antigen Negative (Negative)
--- NOTE | 2021-08-07 12:35 | P.DS_ITS ---
Discharge Providers Date of Admission: 07/30/21 19:12 Date of Discharge: August 07, 2021 Attending Provider at Admission: Hansa Guillaume MD Attending Provider at Discharge: Aramis Plummer MD Consults: Telemetry nephrology Primary Care Provider: Laurent Whitaker MD Diagnoses at Discharge Discharge Diagnosis (1) Altered mental status: Status: Acute (2) Acute kidney injury: Status: Acute (3) Abdominal tenderness: Status: Acute (4) Acute uremia: Status: Acute (5) Hyperkalemia: Status: Acute (6) Metabolic encephalopathy: Status: Acute Reason for Visit Reason for Visit: AMS DECREASED Hospital Course Hospital Course As per H&P. Nadir Sarkar is a 75 year old male sent from [facility] for change in his behavior, combative and aggressive with the staff. Reportedly patient miller d nephrectomy a week ago at [place]. . he has been fluctuating between combative and aggressive state to somnolent behavior. As per the nursing staff no recent fever, falls, or recent diarrhea. In the ER patient was found to be in CARLITO with mild pyuria on urinalysis and soft blood pressure. Dialysis catheter was placed by ER physician. Patient was admitted for further evaluation and management of altered mental status in setting of acute kidney injury leading to acute uremia and hyperkalemia in setting of recent nephrectomy at outside hospital. At first it was believed patient's symptoms are most likely secondary to uremia for which nephrology was consulted and he underwent emergent dialysis. Infectious work-up was done CT abdomen was done which shows left lower abdominal subcutaneous emphysema without fluid collection to suggest of abscess. He was continued on broad-spectrum antibiotics. His blood cultures and urine cultures remain negative. Patient continues to show steady slow improvement. Patient has had good urine output during hospitalization hence he did not require any further dialysis. Patient's mentation was discussed with family at bedside and they concurred that he is back to his recent baseline of being awake and alert to self place and sometimes year. His creatinine plateaued to around 1.6 which seems to his new baseline post nephrectomy. He is been discharged in hemodynamically stable condition with advised to take Augmentin Levaquin for next 3 days. He is to take Levaquin on every other day basis. Currently he is on soft mechanical nondialysis diabetic diet. Physical Exam Const: COMMON NORMALS: no acute distress GENERAL APPEARANCE: cooperative and comfortable NUTRITIONAL APPEARANCE: obese ORIENTATION/CONSCIOUSNESS: Yes awake and Yes confused HENMT: COMMON NORMALS: oropharynx normal Neck/C-Spine: COMMON NORMALS: no JVD Resp: COMMON NORMALS: normal respiratory effort and clear to auscultation bilaterally AUSCULTATION: clear to auscultation bilaterally Cardio: COMMON NORMALS: no JVD, regular rhythm, S1 normal heart sound present, S2 normal heart sound present and No murmurs present (Cardio) RHYTHM: regular rhythm HEART SOUNDS: S1 normal heart sound present and S2 normal heart sound present GI: COMMON NORMALS: Normal to inspection, nondistended, normoactive bowel sounds present, Soft to palpation and non-tender PALPATION: Yes Soft to palpation OTHER: Well healing laparoscopy wounds LL abdomen Extremity: COMMON NORMALS: no joint enlargement and no pedal edema Neuro: COMMON NORMALS: moves all extremities Skin: COMMON NORMALS: no rashes or lesions noted GENERAL SKIN EXAM: no rashes or lesions noted Urinary Catheter Management^: Medeiros Latex: Cath Placed During This Visit: yes Reason for Continuing Indwelling Catheter: Accurate Measurement of Urinary Output in Critically Ill Patients Urinary Catheter Date of Insertion: 07/30/21 Urinary Catheter Time of Insertion: 22:41 Discharge Data Data Completed and Pending: Completed Studies During Hospitalization Category Date Time Status CT abdomen pelvis wo con 12833 Rout ine Cat Scan 08/02/21 08:[address] abdomen pelvis wo con [id number] Stat Cat Scan 07/30/21 20:[address] head wo con* 7 0450 Routine Cat Scan 08/02/[address] head wo con* 7 0450 Urgent Cat Scan 07/30/21 16:34 Completed XR chest 1V malini ble 55592 Stat Exams 07/31/21 18:19 Completed XR chest 1V malini ble [id number] Urgent Exams 07/30/21 16:34 Completed XR chest 1V malini ble [id number] Urgent Exams 07/30/21 21:45 Completed Pending at discharge Category Date Time Status Complete Blood Co unt w/Auto AM LABS Lab 08/08/21 04:00 Ordered Complete Blood Co unt w/Auto AM LABS Lab 08/09/21 04:00 Ordered Complete Blood Co unt w/Auto AM LABS Lab 08/10/21 04:00 Ordered Comprehensive Met abolic Panel AM LA BS Lab 08/08/21 04:00 Ordered Comprehensive Met abolic Panel AM TOMASZ BS Lab 08/09/21 04:00 Ordered Comprehensive Met abolic Panel AM LA BS Lab 08/10/21 04:00 Ordered Magnesium AM LABS Lab 08/08/21 04:00 Ordered Phosphorus AM LAB S Lab 08/08/21 04:00 Ordered Labs from last 24 hours 08/07/21 08/07/21 08/07/21 11:53 11:15 06:40 WBC RBC Hgb Hct MCV MCH MCHC RDW Plt Count MPV Neut % (Auto) Lymph % (Auto) Gilchrist % (Auto) Eos % (Auto) Baso % (Auto) Neut # (Auto) Lymph # (Auto) Gilchrist # (Auto) Eos # (Auto) Baso # (Auto) Nucleated RBC % (a uto) Nucleated RBCs # Sodium Potassium Chloride Carbon Dioxide Anion Gap BUN Creatinine GFR Calculation Glucose POC Glucose 122 H 112 H Estimat Average Gl ucose Hemoglobin A1c Calculated Osmolal ity Calcium Phosphorus Magnesium Total Bilirubin AST ALT Alkaline Phosphata se Total Protein Albumin Globulin SARS-CoV-2 Ag (Rap id) Negative 08/07/21 08/07/21 08/07/21 05:20 05:20 05:20 WBC 9.2 RBC 4.30 Hgb 12.2 Hct 40.1 L MCV 93.3 MCH 28.4 MCHC 30.4 RDW 16.0 H Plt Count 150 MPV 11.5 H Neut % (Auto) 73.6 Lymph % (Auto) 16.1 Gilchrist % (Auto) 6.0 Eos % (Auto) 3.4 Baso % (Auto) 0.5 Neut # (Auto) 6.79 Lymph # (Auto) 1.5 Gilchrist # (Auto) 0.6 Eos # (Auto) 0.3 Baso # (Auto) 0.1 Nucleated RBC % (a uto) 0 Nucleated RBCs # 0.0 Sodium 141 Potassium 3.8 Chloride 109 H Carbon Dioxide 20 L Anion Gap 15.8 BUN 16 Creatinine 1.6 H GFR Calculation Not Reportable Glucose 109 POC Glucose Estimat Average Gl ucose 140 Hemoglobin A1c 6.5 H Calculated Osmolal ity 294 Calcium 8.2 L Phosphorus 2.1 L Magnesium 1.6 L Total Bilirubin 0.5 AST 21 ALT 26 Alkaline Phosphata se 120 Total Protein 5.1 L Albumin 2.9 L Globulin 2.2 SARS-CoV-2 Ag (Rap id) 1108/06/21 08/06/21 21:16 20:43 17:26 WBC RBC Hgb 12.2 Hct 38.3 L MCV MCH MCHC RDW Plt Count MPV Neut % (Auto) Lymph % (Auto) Gilchrist % (Auto) Eos % (Auto) Baso % (Auto) Neut # (Auto) Lymph # (Auto) Gilchrist # (Auto) Eos # (Auto) Baso # (Auto) Nucleated RBC % (a uto) Nucleated RBCs # Sodium Potassium Chloride Carbon Dioxide Anion Gap BUN Creatinine GFR Calculation Glucose POC Glucose 131 H 184 H Estimat Average Gl ucose Hemoglobin A1c Calculated Osmolal ity Calcium Phosphorus Magnesium Total Bilirubin AST ALT Alkaline Phosphata se Total Protein Albumin Globulin SARS-CoV-2 Ag (Rap id) Addt'l Data from Hospital Stay: Laboratory Results WBC 9.2 10^3/uL (4.0- 10.0) 08/07/21 05:20 RBC 4.30 10^6/uL (4.1 -5.3) 08/07/21 05:20 Hgb 12.2 g/dL (11.7-1 6.6) 08/07/21 05:20 Hct 40.1 % (42.0-52.0 ) L 08/07/21 05:20 MCV 93.3 fl (80-94) 08/07/21 05:20 MCH 28.4 pg (28.0-34. 0) 08/07/21 05:20 MCHC 30.4 g/dL (30.0-3 6.0) 08/07/21 05:20 RDW 16.0 % (12.1-15.1 ) H 08/07/21 05:20 Plt Count 150 10^3/cmm (130 -400) 08/07/21 05:20 MPV 11.5 fL (7.4-10.4 ) H 08/07/21 05:20 Neut % (Auto) 73.6 % 08/07/21 05:20 Lymph % (Auto) 16.1 % 08/07/21 05:20 Gilchrist % (Auto) 6.0 % 08/07/21 05:20 Eos % (Auto) 3.4 % 08/07/21 05:20 Baso % (Auto) 0.5 % 08/07/21 05:20 Neut # (Auto) 6.79 10^3/uL (1.8 -7.7) 08/07/21 05:20 Lymph # (Auto) 1.5 10^3/uL (0.8- 4.8) 08/07/21 05:20 Gilchrist # (Auto) 0.6 10^3/uL (0.2- 0.9) 08/07/21 05:20 Eos # (Auto) 0.3 10^3/uL (0.0- 0.8) 08/07/21 05:20 Baso # (Auto) 0.1 10^3/uL (0.0- 0.1) 08/07/21 05:20 Nucleated RBC % (a uto) 0 % 08/07/21 05:20 Nucleated RBCs # 0.0 /100WBC 08/07/21 05:20 PT 15.20 SECONDS (12 .1-14.9) H 07/30/21 18:00 INR 1.17 (0.8-1.2) 07/30/21 18:00 APTT 37.7 SECONDS (23. 9-36.7) H 07/30/21 18:00 Specimen Type Calver 07/31/21 05:17 Sample Site Radial, right 07/31/21 05:17 ABG pH 7.43 (7.35-7.45) 07/31/21 05:17 ABG pCO2 34.9 mmHg (35-45) L 07/31/21 05:17 ABG pO2 64.8 mmHg (80.0-1 00.0) L 07/31/21 05:17 ABG HCO3 22.9 mmol/L (22-2 6) 07/31/21 05:17 ABG Base Excess -0.8 mmol/L (-2.0 -2.0) 07/31/21 05:17 Jordi Test Pos 07/31/21 05:17 Hematocrit 52.8 % (42-52) H 07/31/21 05:17 O2 Delivery Device Room air 07/31/21 05:17 FiO2 21.0 % 07/31/21 05:17 Filler Shaker ID Anonymous 07/31/21 05:17 Sodium 141 mmol/L (136-1 45) 08/07/21 05:20 Potassium 3.8 mmol/L (3.5-5 .1) 08/07/21 05:20 Chloride 109 mmol/L (98-10 7) H 08/07/21 05:20 Carbon Dioxide 20 mmol/L (22-29) L 08/07/21 05:20 Anion Gap 15.8 (5-19) 08/07/21 05:20 BUN 16 mg/dL (8-23) 08/07/21 05:20 Creatinine 1.6 mg/dL (0.7-1. 2) H 08/07/21 05:20 GFR Calculation Not Reportable 08/07/21 05:20 Glucose 109 mg/dL (65-115 ) 08/07/21 05:20 POC Glucose 122 mg/dL (70-110 ) H 08/07/21 11:53 Estimat Average Gl ucose 140 08/07/21 05:20 Hemoglobin A1c 6.5 % (4.0-6.0) H 08/07/21 05:20 Calculated Osmolal ity 294 mOsm/kg (285- 295) 08/07/21 05:20 Uric Acid 8.0 mg/dL (3.4-7. 0) H 08/03/21 06:08 Calcium 8.2 mg/dL (8.5-10 .5) L 08/07/21 05:20 Phosphorus 2.1 mg/dL (2.5-4. 5) L 08/07/21 05:20 Magnesium 1.6 mg/dL (1.7-2. 3) L 08/07/21 05:20 Total Bilirubin 0.5 mg/dL (0.15-1 .2) 08/07/21 05:20 AST 21 U/L (0-40) 08/07/21 05:20 ALT 26 U/L (0-41) 08/07/21 05:20 Alkaline Phosphata se 120 IU/L (40-130) 08/07/21 05:20 Ammonia 13 umol/L (16-60) L 07/30/21 18:00 Creatine Kinase 19 U/L (39-308) L 07/31/21 00:16 Troponin T Baselin e 39 ng/L (0-15) H 07/30/21 18:00 Troponin T 120 Min chelly 36.25 ng/L (0-15) H 07/30/21 21:38 Delta Troponin T -2.75 ABS# (0-10) L 07/30/21 21:38 Troponin T Hi Sens 6Hr 38.56 ng/L (0-15) H 07/31/21 00:16 Troponin T Hi Sens 6Hr Delta -0.44 ng/L (0-12) L 07/31/21 00:16 C-Reactive Protein 31.2 mg/L (0.0-4. 9) H 07/31/21 03:50 Total Protein 5.1 g/dL (6.6-8.7 ) L 08/07/21 05:20 Albumin 2.9 g/dL (3.5-5.2 ) L 08/07/21 05:20 Globulin 2.2 g/dL (1.3-4.6 ) 08/07/21 05:20 Lipase 11 U/L (13-60) L 07/30/21 18:00 Procalcitonin 0.29 ng/mL (0-0.5 ) 07/30/21 18:00 TSH 1.31 uIU/mL (0.27 -4.20) 07/31/21 00:16 Urine Color Yellow (Yellow) 08/01/21 18:19 Urine Appearance Cloudy (CLEAR) 08/01/21 18:19 Urine pH 5 (5-7) 08/01/21 18:19 Ur Specific Gravit y 1.015 (1.005-1.0 30) 08/01/21 18:19 Urine Protein 2+ (Negative) H 08/01/21 18:19 Urine Glucose (UA) Norm (Normal) 08/01/21 18:19 Urine Ketones 1+ (Negative) H 08/01/21 18:19 Urine Blood 3+ (Negative) H 08/01/21 18:19 Urine Nitrate Negative (Negati ve) 08/01/21 18:19 Urine Bilirubin Neg (Negative) 08/01/21 18:19 Urine Urobilinogen Norm mg/dL (Negat eduin) 08/01/21 18:19 Ur Leukocyte Emily ase 2+ (Negative) H 08/01/21 18:19 Urine RBC Too numerous to c nt /hpf (0-2) H 08/01/21 18:19 Urine WBC Too numerous to c nt /hpf (0-5) H 08/01/21 18:19 Ur Squamous Epith Cells 0-4 /hpf (0-5) H 08/01/21 18:19 Amorphous Sediment Not Reportable 08/01/21 18:19 Urine Bacteria 2+ /hpf (NONE) H 08/01/21 18:19 Hyaline Casts 5-10 /lpf H 07/30/21 22:39 Ur Oval Fat Bodies 10 /hpf 07/30/21 22:39 Ur Random Sodium 28 mmol/L 07/31/21 02:12 Urine Creatinine 212 mg/dL (39-259 ) 07/31/21 02:12 Salicylates < 0.3 mg/dL (3-10 ) L 07/30/21 18:00 Acetaminophen < 5.0 ug/mL (10-3 0) L 07/30/21 18:00 Hep Bs Antigen Non-reactive (No nreactive) 07/31/21 13:00 SARS-CoV-2 Ag (Rap id) Negative (Negati ve) 08/07/21 11:15 Impressions Chest X-Ray 07/31/21 18:19 IMPRESSION: 1. Interval placement of a right internal jugular central line with the tip in the upper SVC adjacent to the tip previously demonstrated lling left internal jugular central line. 2. No acute cardiopulmonary process. 3. Incidental/nonacute findings are listed in the report. Radiation Dose CTDIVOL = (mGy): DLP = (mGy-cm) Head CT 08/02/21 00:00 IMPRESSION: 1. No acute intracranial abnormality. 2. Chronic atrophy with chronic white matter ischemic changes. Radiation Dose CTDIVOL = (mGy): DLP = 3731.12 (mGy-cm) Abdomen/Pelvis CT 08/02/21 08:23 IMPRESSION: 1. Status post left nephrectomy. 2. No acute abnormalities are seen within the abdomen and pelvis. 3. There is stable appearance of subcutaneous emphysema in the left anterior abdominal wall with fatty stranding and minimal fluid in the left inguinal canal. This is probably related to recent surgery. Radiation Dose CTDIVOL = (mGy): DLP = 1421.64 (mGy-cm) Microbiology 08/02/21 11:12 Blood Blood Culture - Final NO GROWTH AFTER 5 DAYS 08/02/21 11:12 Blood Blood Culture - Final NO GROWTH AFTER 5 DAYS 08/01/21 18:19 Urine Catheterized Urine Culture - Final 07/31/21 02:12 Urine Ureter Urine Culture - Final Vitals: Last Vital Signs Temp 97.7 F 08/07/21 12:00 Pulse 75 08/07/21 12:00 Resp 18 08/07/21 12:00 BP 122/83 08/07/21 12:00 Pulse Ox 96 08/07/21 12:00 Discharge Plan Discharge Patient Disposition: Xfer SNF Condition: Stable Prescriptions: New Augmentin 500-125 mg tablet 1 tab PO BID 3 Days Qty: 6 RF: 0 Pepcid 20 mg tablet 20 mg PO DAILY Qty: 20 RF: 0 levofloxacin 500 mg tablet 500 mg PO Q48H 3 Days Qty: 2 RF: 0 Continued atorvastatin 20 mg Tablet 20 mg PO DAILY@20 RF: 0 Phenergan 25 mg Suppository 25 mg NV Q6H PRN (Reason: Nausea) RF: 0 Zofran 4 mg Tablet 4 mg PO Q4H PRN (Reason: Nausea And Vomiting) RF: 0 Aspir-81 81 mg Tablet,Delayed Release (Dr/Ec) 81 mg PO DAILY@08 RF: 0 Pepcid 20 mg Tablet 20 mg PO DAILY@08 RF: 0 Milk of Magnesia 400 mg/5 mL Suspension 30 ml PO DAILY PRN (Reason: Constipation) RF: 0 bisacodyl 10 mg Suppository 10 mg NV DAILY PRN (Reason: Constipation) RF: 0 Phenergan 25 mg/mL Solution 25 mg IM Q6H PRN (Reason: Nausea And Vomiting) RF: 0 oxycodone 5 mg Capsule 5 mg PO Q6H PRN (Reason: Pain) RF: 0 Enema Disposable 19-7 gram/118 mL Enema 118 ml NV DAILY PRN (Reason: Constipation) RF: 0 metoprolol succinate 25 mg Tablet Extended Release 24 Hr 25 mg PO DAILY@07 RF: 0 scopolamine base 1 mg over 3 days Patch 3 Day 1 patch TRANSDERMAL Q3D RF: 0 albuterol sulfate 90 mcg/actuation Hfa Aerosol Inhaler 2 puff INHALATION Q6H PRN (Reason: Shortness Of Breath) RF: 0 Flonase 50 mcg/actuation [place],Suspension 1 spray INTRANASAL BID PRN (Reason: Allergy Symptoms) RF: 0 Mylanta Maximum Strength 400-400-40 mg/5 mL Suspension 30 ml PO Q4H PRN (Reason: UNKNOWN) RF: 0 simethicone 80 mg Tablet,Chewable 80 mg PO BID PRN (Reason: UNKNOWN) RF: 0 Trelegy Ellipta 100-62.5-25 mcg Blister With Device 1 inh INHALATION DAILY@08 RF: 0 Two Ned 90 ml PO TID RF: 0 metformin 1,000 mg tablet 1,000 mg PO BID@07,19 RF: 0 loratadine 10 mg tablet 10 mg PO DAILY@08 RF: 0 Changed Lantus Solostar U-100 Insulin 100 unit/mL (3 mL) Insulin Pen 10 unit SUBCUT BEDTIME Qty: 0 RF: 0 Discharge Orders: Discharge Order (Routine); Ordered 08/07/21 Ordered By: Aramis Plummer Referrals: Laurent Whitaker MD [Primary Care Provider] - Discharge Diet: Soft Mechanical Discharge Activity: Resume usual activity and Increase activity as tolerated Patient Instructions: Opioid Safety Activity Restrictions/Additional Instructions: Soft mechanical renal nondialysis diabetic diet. Please increase physical activity as possible. Antibiotics Augmentin and Levaquin for 3 days. Levaquin to be taken every other day. Discharge Attestations Time Spent in Discharge Care*: greater than 30 min Specific Discharge Activities: educating patient, educating and/or supporting family/caregiver, discussing with pcp/other providers, discussing with correctional counselor/case manager/social workers/dc planners, documenting/other paperwork and evaluating patient/reviewing data Status at Discharge: Cognitive status at discharge: mildly impaired cognition , Behavioral status at discharge: cooperative , Functional status at discharge: other assisted ambulation Overall status at discharge: patient is back to baseline Quality Metrics Clinical Quality Measures During this hospital stay, did patient experience: None Coding Level of Care Code Acute Chg FW DC note Diagnoses Altered mental status R41.82 Acute kidney injury N17.9 Abdominal tenderness R10.819 Acute uremia N19 Hyperkalemia E87.5 Metabolic encephalopathy G93.41
--- NOTE | 2021-08-07 13:15 | PC.NURSE ---
Called in meds to [facility] because meds were sent to [facility] in error.
--- NOTE | 2021-08-07 14:04 | PC.NURSE ---
Report called to [facility]. PCS form filled and awaiting arrival of ambulance for transport.
[2021-08-07 15:23] VITALS: BP 97/63; PULSE 93; RESP 20; TEMP 36.3; O2SAT 97
== END 2021-08-07 16:44 | disposition skilled nursing facility (03) | DRG 682 ==
LOC: ER 19:03 → MEDSURG 19:57 → ICU 21:28 → MEDSURG 08-04 15:41
PROVIDERS: Internal Medicine; Internal Medicine Nephrology; Admitting Provider Internal Medicine; Emergency Provider Emergency Medicine; PCP Family Medicine; Visit Provider Student in an Organized Health Care Education/Training Program
DX: N17.9 Acute kidney failure, unspecified (principal); G93.41 Metabolic encephalopathy; C64.9 Malignant neoplasm of unspecified kidney, except renal pelvis; T82.41XA Breakdown (mechanical) of vascular dialysis catheter, initial encounter; Z90.5 Acquired absence of kidney; N40.0 Benign prostatic hyperplasia without lower urinary tract symptoms; K21.9 Gastro-esophageal reflux disease without esophagitis; E11.9 Type 2 diabetes mellitus without complications; E87.5 Hyperkalemia; J98.2 Interstitial emphysema; Z79.4 Long term (current) use of insulin; Z79.84 Long term (current) use of oral hypoglycemic drugs; Z79.891 Long term (current) use of opiate analgesic; Z79.82 Long term (current) use of aspirin; K29.70 Gastritis, unspecified, without bleeding; Y82.9 Unspecified medical devices associated with adverse incidents
CPT/HCPCS: 36415; 36416; 36556; 51702; 70450; 71045; 74176; 80048; 80053; 80307; 81001; 82140; 82550; 82575; 82803; 82962; 83036; 83690; 83735; 84100; 84145; 84300; 84443; 84484; 84550; 85014; 85018; 85025; 85610; 85730; 86140; 87040; 87086; 87340; 87426; 90935; 93005; 94640; 96372; 97162; 99285; C9113; J0692; J0696; J1815; J2405; J2543; J2765; J2997; J3475; J7030; J7040; Q3014

== ENCOUNTER 2021-08-09 15:56 | Outpatient (CLI) | payer MEDICARE, OTHER, SELFPAY ==
[2021-08-09 16:22] LABS: Basophils % 0.5 %; Eosinophils # 0.3 10^3/uL (0.0-0.8); Eosinophils % 3.5 %; Hematocrit 38.1 % (42.0-52.0); Hemoglobin 12.2 g/dL (11.7-16.6); Lymphocytes # 1.3 10^3/uL (0.8-4.8); Lymphocytes % 16.6 %; Mean Corpuscular Hemoglobin 28.5 pg (28.0-34.0); Mean Platelet Volume 11.8 fL (7.4-10.4); Monocytes # 0.6 10^3/uL (0.2-0.9); Monocytes % 7.2 %; Neutrophils # 5.72 10^3/uL (1.8-7.7); Neutrophils % 71.8 %; Nucleated Red Blood Cells % 0 %; Platelet Count 179 10^3/cmm (130-400); Red Blood Count 4.28 10^6/uL (4.1-5.3); Red Cell Distribution Width 16.2 % (12.1-15.1)
[2021-08-09 17:01] LABS: Anion Gap 16.4 (5-19); Blood Urea Nitrogen 14 mg/dL (8-23); Carbon Dioxide 21 mmol/L (22-29); Chloride 108 mmol/L (98-107); Potassium 4.4 mmol/L (3.5-5.1); Sodium 141 mmol/L (136-145)
[2021-08-09 17:02] LABS: Calcium 8.5 mg/dL (8.5-10.5); Glucose 80 mg/dL (65-115); Osmolality Calculated 291 mOsm/kg (285-295)
== END 2021-08-09 15:57 | disposition home or self-care (01) ==
LOC: LAB 16:01
PROVIDERS: PCP Family Medicine; Visit Provider Nurse Practitioner Family
DX: I10 Essential (primary) hypertension (principal)
CPT/HCPCS: 80048; 85025